=== PATIENT | male | born 1950 | race Caucasian/White ===

== ENCOUNTER 2017-10-26 05:46 | Emergency (ER) | payer MEDICARE, OTHER, SELFPAY ==
[2017-10-26 05:55] VITALS: BP 162/105; PULSE 44; RESP 24; O2SAT 98; BMI 43.0
--- NOTE | 2017-10-26 06:02 | DI.RAD.S_ITS ---
PROCEDURE: XR CHEST 1V INDICATIONS: 67 year-old male with shortness of breath. TECHNIQUE: One view of the chest was acquired. COMPARISON: None. FINDINGS: Surgical changes and devices: None. Lungs and pleura: Bilateral mild interstitial infiltrates. No pleural effusions or pneumothorax. Lungs are clear. Mediastinum: Mediastinal contours appear normal. Heart size is mildly increased. Bones and chest wall: No suspicious bony lesions. Overlying soft tissues appear unremarkable. IMPRESSION: Bilateral mild interstitial infiltrates may be secondary to mild CHF or bilateral interstitial pneumonia. Recommend clinical correlation. Dictated by: Indiana Byrd M.D. on 10/26/2017 at 8:32 Approved by: Indiana Byrd M.D. on 10/26/2017 at 8:34
[2017-10-26 06:10] VITALS: BP 162/105; PULSE 44; RESP 24; O2SAT 98; BMI 43.0
--- NOTE | 2017-10-26 06:13 | ED.CHESTPAIN ---
HPI - Chest Pain General Chief Complaint: Chest Pain Stated Complaint: HEART ATTACK Time Seen by Provider: 10/26/17 06:02 Source: patient Mode of arrival: ambulatory Limitations: no limitations History of Present Illness HPI narrative: Patient is a 67-year-old male who presents with chest pain and shortness of breath. Says it has been ongoing for a number of weeks. He has even had multiple syncopal episodes. Yesterday he was driving to the pharmacy to slat pickler his medication and stop the car 5 times because he felt like he was going to pass out he did not pass out. This morning he decided he would come to the emergency department to get checked out. He actually had a Holter monitor on for the last [address] tee if he has acid changer. He has a known cardiac valve problem which he was told has gotten worse. No known coronary artery disease. She does have other risk factors including hypertension hyperlipidemia diabetes. He says he only has chest pressure and dyspnea with exertion once he sits and rests he has no issues. He denies any orthopnea. No diaphoresis. No nausea. MD complaint: chest pain Related Data Home Medications Medication Instructions Recorded Confirmed aspirin [Aspir-81] 81 mg PO DAILY 10/26/17 10/26/17 felodipine 5 mg PO DAILY 10/26/17 10/26/17 glipizide 5 mg PO DAILY 10/26/17 10/26/17 insulin glargine [Lantus Solostar 30 units SUB-Q DAILY 10/26/17 10/26/17 U-100 Insulin] lisinopril 1 tab PO DAILY 10/26/17 10/26/17 loratadine 1 tab PO DAILY 10/26/17 10/26/17 metformin 1 tab PO DAILY 10/26/17 10/26/17 naproxen 1 tab PO DAILY 10/26/17 10/26/17 naproxen 12 tab PO BID 10/26/17 10/26/17 simvastatin 1 tab PO DAILY 10/26/17 10/26/17 tamsulosin 1 tab PO DAILY 10/26/17 10/26/17 Allergies Allergy/AdvReac Type Severity Reaction Status Date / Time mometasone furoate Allergy Unknown Verified 10/26/17 06:31 tamsulosin [From Flomax] Allergy Unknown Verified 10/26/17 06:30 hydrophilic ointment Allergy Verified 10/26/17 06:32 [From Aquaphilic/Triamcinolone] triamcinolone Allergy Verified 10/26/17 06:32 Iodine Allergy Unknown Uncoded 10/26/17 06:31 Review of Systems Review of Systems All systems reviewed & are unremarkable except as noted in HPI and below Constitutional Denies chills, Denies fever(s), Denies lethargy and Denies weakness Cardiovascular Reports chest pain, Reports syncope, Denies pedal edema, Reports dyspnea and Reports dyspnea on exertion Respiratory Reports dyspnea and Reports dyspnea on exertion Gastrointestinal Gastrointestinal: Denies abdominal pain, Denies change in bowel habits, Denies diarrhea, Denies nausea and Denies vomiting Musculoskeletal Denies back pain, Denies muscle weakness, Denies numbness and Denies tingling Integumentary/Breasts Denies pruritus, Denies erythema, Denies rash and Denies wounds Neurologic Reports syncope, Denies numbness, Denies tingling and Denies weakness PFSH Medical History BPH (benign prostatic hyperplasia) (Acute) Diabetes (Acute) Hyperlipidemia (Acute) Hypertension (Acute) Social History Smoking Status: Never smoker Exam Initial Vital Signs Initial Vital Signs: Vital Signs Pulse Rate 44 L 10/26/17 05:55 Respiratory Rate 24 10/26/17 05:55 Blood Pressure 162/105 H 10/26/17 05:55 Pulse Oximetry 98 10/26/17 05:55 Const General: acute distress and in distress Nutritional Appearance: overweight Orientation: alert, awake and oriented x3 Eyes General: appearance normal, both eyes and all related structures Neck Neck: normal visual inspection, full ROM and No JVD Chest Chest: normal inspection of the chest Resp Effort & Inspection: not able to speak in complete sentences, decreased respiratory effort and labored Auscultation: clear to auscultation bilaterally, no rales, no rhonchi, no wheezes and no rubs Tactile Fremitus: tactile fremitus absent Cardio Rate: bradycardic Rhythm: abnormal rhythm regularly irregular Heart Sounds: S1 normal and S2 normal GI Palpation: soft, No firm and No tender Skin Wounds: wounds noted (Chronic appearing right lower leg wound) Neuro General: alert, awake and oriented x3 Cranial Nerves: CN's II-XI intact bilaterally Course Orders Ordered: Discontinued Medications Sodium Chloride (Normal Saline 0.9%) 1,000 mls @ 150 mls/hr IV CONT AGNIESZKA Last Infusion: 10/26/17 09:18 Dose: 0 mls/hr Admin: 10/26/17 06:40 Dose: 150 mls/hr Consultations Consultation #1: Dr. Oniel Dale, acid changer at [facility] in billing him has been updated patient's symptoms test results. I expressed my concern and need for pacemaker. The some patient's other medical problems recommend admitting to hospitalist all. Happy to consult. Time: 06:36 Consultation #2: Dr. Barrett hospitalist at [facility] has been updated patient's symptoms test results and happily accepts patient for transfer. Time: 06:58 Vital Signs - 8 hr 10/26/17 05:55 10/26/17 06:10 Pulse Rate 44 L 44 L Respiratory Rate 24 24 Blood Pressure 162/105 H 162/105 H Pulse Oximetry 98 98 MDM - Chest Pain Lab Data Attestation: I reviewed the patient's lab results. Result diagrams: 10/26/17 05:50 10/26/17 05:50 Lab Results 10/26/17 10/26/17 10/26/17 Range/Units 05:50 05:50 05:50 WBC 8.1 (4.5-11.0) X10^3/uL RBC 4.53 (4.5-5.9) X10^6/uL Hgb 14.0 (13.5-17.5) g/dL Hct 41.8 (41-53) % MCV 92.4 (80-100) fL MCH 30.9 (26-34) PG MCHC 33.4 (30-36) % RDW 13.4 (11.6-14.8) % Plt Count 132 L (150-400) X10^3/uL Neut % (Auto) 55.0 (50-75) % Lymph % (Auto) 32.2 (25-40) % [place] % (Auto) 9.1 (3-14) % Eos % (Auto) 3.2 (2-4) % Baso % (Auto) 0.5 (0-2) % Neut # (Auto) 4500 (2140-5113) /uL PT 11.3 (10.1-12.7) SECONDS INR 1.0 (0.9-1.3) APTT 27 (26.4-36.2) SECONDS Sodium 138 (137-145) mmol/L Potassium 4.7 (3.4-5.1) mmol/L Chloride 100 (98-107) mmol/L Carbon Dioxide 28 (22-32) mmol/L BUN 24 H (9-20) mg/dL Creatinine 1.10 (0.66-1.25) mg/dL Estimated GFR > 60.0 (>60) mL/min BUN/Creatinine Ratio 21.8 (6-22) Glucose 209 H (80-110) mg/dL Calcium 8.9 (8.4-10.2) mg/dL Magnesium 1.7 (1.6-2.3) mg/dL Total Bilirubin 0.6 (0.2-1.3) mg/dL AST 42 (17-59) IU/L ALT 49 (21-72) IU/L Alkaline Phosphatase 55 (38-126) U/L Total Creatine Kinase 311 H (55-170) U/L CK-MB (CK-2) 6.23 H (<2.37) ng/mL CK-MB (CK-2) Rel Index 2.0 (1.5-5.0) % Troponin I 0.043 H (0.01-0.034) ng/mL B-Natriuretic Peptide 382.0 H (<100) Total Protein 7.2 (6.3-8.2) g/dL Albumin 4.3 (3.5-5.0) g/dL Globulin 2.9 (1.7-4.1) g/dL Albumin/Globulin Ratio 1.5 (1.0-2.8) Lipase 2439 H (23-300) U/L Imaging Data Chest x-ray: Attestation: I personally reviewed and interpreted this imaging study as follows: My impression: No acute cardiopulmonary process Radiologist's impression: ECG Data Interpretation: EKG 1. At 5:51 a.m. PVCs, run of V-tach,, nonconducted P wave Mobitz 2 versus third-degree EKG 2. At 6:14 a.m. or regular rhythm DC interval 0.4 fall a rate 37 MDM Narrative Medical decision making narrative: Patient has had multiple syncopal episodes he initially looked quite dyspneic and in distress. Initial EKG showed frequent PVCs nonconducted P waves questionable Mobitz type 2 versus third-degree heart block. He now appears to be an a regular sinus rhythm the consistent rate at 34. She remains awake alert and talking. Blood pressure remained stable. Lipase is noted to be elevated he denies any abdominal pain Discharge Plan Departure Patient Disposition: [facility] Clinical Impression: Arrhythmia, AV node, Bradycardia Discharge Date/Time: 10/26/17 09:10 Interventions: ED Discharge Assessment Last Done: 10/26/17 09:08 Prescriptions: No Action metformin 500 mg tablet 1 tab PO DAILY RF: 0 felodipine 5 mg Tablet Extended Release 24 Hr 5 mg PO DAILY RF: 0 aspirin [Aspir-81] 81 mg Tablet,Delayed Release (Dr/Ec) 81 mg PO DAILY RF: 0 tamsulosin 0.4 mg capsule 1 tab PO DAILY RF: 0 simvastatin 20 mg tablet 1 tab PO DAILY RF: 0 lisinopril 40 mg tablet 1 tab PO DAILY RF: 0 loratadine 10 mg tablet 1 tab PO DAILY RF: 0 glipizide 5 mg Tablet 5 mg PO DAILY RF: 0 naproxen 500 mg tablet 12 tab PO BID RF: 0 naproxen 500 mg tablet 1 tab PO DAILY RF: 0 insulin glargine [Lantus Solostar U-100 Insulin] 100 unit/mL (3 mL) insulin pen 30 units Sub-Q DAILY RF: 0
--- NOTE | 2017-10-26 06:20 | ED_ITS ---
HPI - Chest Pain General Chief Complaint: Chest Pain Stated Complaint: HEART ATTACK Time Seen by Provider: 10/26/17 06:02 Source: patient Mode of arrival: ambulatory Limitations: no limitations History of Present Illness HPI narrative: Patient is a 67-year-old male who presents with chest pain and shortness of breath. Says it has been ongoing for a number of weeks. He has even had multiple syncopal episodes. Yesterday he was driving to the pharmacy to pick out hand his medication and stop the car 5 times because he felt like he was going to pass out he did not pass out. This morning he decided he would come to the emergency department to get checked out. He actually had a Holter monitor on for the last [address] 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 He has a known cardiac valve problem which he was told has gotten worse. No known coronary artery disease. She does have other risk factors including hypertension hyperlipidemia diabetes. He says he only has chest pressure and dyspnea with exertion once he sits and rests he has no issues. He denies any orthopnea. No diaphoresis. No nausea. MD complaint: chest pain Related Data Home Medications Medication Instructions Recorded Confirmed aspirin [Aspir-81] 81 mg PO DAILY 10/26/17 10/26/17 felodipine 5 mg PO DAILY 10/26/17 10/26/17 glipizide 5 mg PO DAILY 10/26/17 10/26/17 insulin glargine [Lantus Solostar 30 units SUB-Q DAILY 10/26/17 10/26/17 U-100 Insulin] lisinopril 1 tab PO DAILY 10/26/17 10/26/17 loratadine 1 tab PO DAILY 10/26/17 10/26/17 metformin 1 tab PO DAILY 10/26/17 10/26/17 naproxen 1 tab PO DAILY 10/26/17 10/26/17 naproxen 12 tab PO BID 10/26/17 10/26/17 simvastatin 1 tab PO DAILY 10/26/17 10/26/17 tamsulosin 1 tab PO DAILY 10/26/17 10/26/17 Allergies Allergy/AdvReac Type Severity Reaction Status Date / Time mometasone furoate Allergy Unknown Verified 10/26/17 06:31 tamsulosin [From Flomax] Allergy Unknown Verified 10/26/17 06:30 hydrophilic ointment Allergy Verified 10/26/17 06:32 [From Aquaphilic/Triamcinolone] triamcinolone Allergy Verified 10/26/17 06:32 Iodine Allergy Unknown Uncoded 10/26/17 06:31 Review of Systems Review of Systems All systems reviewed & are unremarkable except as noted in HPI and below Constitutional Denies chills, Denies fever(s), Denies lethargy and Denies weakness Cardiovascular Reports chest pain, Reports syncope, Denies pedal edema, Reports dyspnea and Reports dyspnea on exertion Respiratory Reports dyspnea and Reports dyspnea on exertion Gastrointestinal Gastrointestinal: Denies abdominal pain, Denies change in bowel habits, Denies diarrhea, Denies nausea and Denies vomiting Musculoskeletal Denies back pain, Denies muscle weakness, Denies numbness and Denies tingling Integumentary/Breasts Denies pruritus, Denies erythema, Denies rash and Denies wounds Neurologic Reports syncope, Denies numbness, Denies tingling and Denies weakness PFSH Medical History BPH (benign prostatic hyperplasia) (Acute) Diabetes (Acute) Hyperlipidemia (Acute) Hypertension (Acute) Social History Smoking Status: Never smoker Exam Initial Vital Signs Initial Vital Signs: Vital Signs Pulse Rate 44 L 10/26/17 05:55 Respiratory Rate 24 10/26/17 05:55 Blood Pressure 162/105 H 10/26/17 05:55 Pulse Oximetry 98 10/26/17 05:55 Const General: acute distress and in distress Nutritional Appearance: overweight Orientation: alert, awake and oriented x3 Eyes General: appearance normal, both eyes and all related structures Neck Neck: normal visual inspection, full ROM and No JVD Chest Chest: normal inspection of the chest Resp Effort & Inspection: not able to speak in complete sentences, decreased respiratory effort and labored Auscultation: clear to auscultation bilaterally, no rales, no rhonchi, no wheezes and no rubs Tactile Fremitus: tactile fremitus absent Cardio Rate: bradycardic Rhythm: abnormal rhythm regularly irregular Heart Sounds: S1 normal and S2 normal GI Palpation: soft, No firm and No tender Skin Wounds: wounds noted (Chronic appearing right lower leg wound) Neuro General: alert, awake and oriented x3 Cranial Nerves: CN's II-XI intact bilaterally Course Orders Ordered: Discontinued Medications Sodium Chloride (Normal Saline 0.9%) 1,000 mls @ 150 mls/hr IV CONT AGNIESZKA Last Infusion: 10/26/17 09:18 Dose: 0 mls/hr Admin: 10/26/17 06:40 Dose: 150 mls/hr Consultations Consultation #1: Dr. Oniel Dale, shop blacksmith at [facility] in billing him has been updated patient's symptoms test results. I expressed my concern and need for pacemaker. The some patient's other medical problems recommend admitting to hospitalist all. Happy to consult. Time: 06:36 Consultation #2: Dr. Barrett hospitalist at [facility] has been updated patient's symptoms test results and happily accepts patient for transfer. Time: 06:58 Vital Signs - 8 hr 10/26/17 05:55 10/26/17 06:10 Pulse Rate 44 L 44 L Respiratory Rate 24 24 Blood Pressure 162/105 H 162/105 H Pulse Oximetry 98 98 MDM - Chest Pain Lab Data Attestation: I reviewed the patient's lab results. Result diagrams: 10/26/17 05:50 10/26/17 05:50 Lab Results 10/26/17 10/26/17 10/26/17 Range/Units 05:50 05:50 05:50 WBC 8.1 (4.5-11.0) X10^3/uL RBC 4.53 (4.5-5.9) X10^6/uL Hgb 14.0 (13.5-17.5) g/dL Hct 41.8 (41-53) % MCV 92.4 (80-100) fL MCH 30.9 (26-34) PG MCHC 33.4 (30-36) % RDW 13.4 (11.6-14.8) % Plt Count 132 L (150-400) X10^3/uL Neut % (Auto) 55.0 (50-75) % Lymph % (Auto) 32.2 (25-40) % Walsh % (Auto) 9.1 (3-14) % Eos % (Auto) 3.2 (2-4) % Baso % (Auto) 0.5 (0-2) % Neut # (Auto) 4500 (0580-9074) /uL PT 11.3 (10.1-12.7) SECONDS INR 1.0 (0.9-1.3) APTT 27 (26.4-36.2) SECONDS Sodium 138 (137-145) mmol/L Potassium 4.7 (3.4-5.1) mmol/L Chloride 100 (98-107) mmol/L Carbon Dioxide 28 (22-32) mmol/L BUN 24 H (9-20) mg/dL Creatinine 1.10 (0.66-1.25) mg/dL Estimated GFR > 60.0 (>60) mL/min BUN/Creatinine Ratio 21.8 (6-22) Glucose 209 H (80-110) mg/dL Calcium 8.9 (8.4-10.2) mg/dL Magnesium 1.7 (1.6-2.3) mg/dL Total Bilirubin 0.6 (0.2-1.3) mg/dL AST 42 (17-59) IU/L ALT 49 (21-72) IU/L Alkaline Phosphatase 55 (38-126) U/L Total Creatine Kinase 311 H (55-170) U/L CK-MB (CK-2) 6.23 H (<2.37) ng/mL CK-MB (CK-2) Rel Index 2.0 (1.5-5.0) % Troponin I 0.043 H (0.01-0.034) ng/mL B-Natriuretic Peptide 382.0 H (<100) Total Protein 7.2 (6.3-8.2) g/dL Albumin 4.3 (3.5-5.0) g/dL Globulin 2.9 (1.7-4.1) g/dL Albumin/Globulin Ratio 1.5 (1.0-2.8) Lipase 2439 H (23-300) U/L Imaging Data Chest x-ray: Attestation: I personally reviewed and interpreted this imaging study as follows: My impression: No acute cardiopulmonary process Radiologist's impression: ECG Data Interpretation: EKG 1. At 5:51 a.m. PVCs, run of V-tach,, nonconducted P wave Mobitz 2 versus third-degree EKG 2. At 6:14 a.m. or regular rhythm NV interval 0.4 fall a rate 37 MDM Narrative Medical decision making narrative: Patient has had multiple syncopal episodes he initially looked quite dyspneic and in distress. Initial EKG showed frequent PVCs nonconducted P waves questionable Mobitz type 2 versus third- degree heart block. He now appears to be an a regular sinus rhythm the consistent rate at 34. She remains awake alert and talking. Blood pressure remained stable. Lipase is noted to be elevated he denies any abdominal pain Discharge Plan Departure Patient Disposition: [facility] Clinical Impression: Arrhythmia, AV node, Bradycardia Discharge Date/Time: 10/26/17 09:10 Interventions: ED Discharge Assessment Last Done: 10/26/17 09:08 Prescriptions: No Action metformin 500 mg tablet 1 tab PO DAILY RF: 0 felodipine 5 mg Tablet Extended Release 24 Hr 5 mg PO DAILY RF: 0 aspirin [Aspir-81] 81 mg Tablet,Delayed Release (Dr/Ec) 81 mg PO DAILY RF: 0 tamsulosin 0.4 mg capsule 1 tab PO DAILY RF: 0 simvastatin 20 mg tablet 1 tab PO DAILY RF: 0 lisinopril 40 mg tablet 1 tab PO DAILY RF: 0 loratadine 10 mg tablet 1 tab PO DAILY RF: 0 glipizide 5 mg Tablet 5 mg PO DAILY RF: 0 naproxen 500 mg tablet 12 tab PO BID RF: 0 naproxen 500 mg tablet 1 tab PO DAILY RF: 0 insulin glargine [Lantus Solostar U-100 Insulin] 100 unit/mL (3 mL) insulin pen 30 units Sub-Q DAILY RF: 0
--- NOTE | 2017-10-26 06:21 | PC.NURSE ---
Pt states SOB and CP with exertion for past week with episodes of syncope however none today. PT was placed on holter monitor for past 2 week and mailed back today. States hx of htn, high cholesterol, diabetes, and was told 25 years ago he has a leaky slow heart valve . Pt able to speak in full sentences O2 96% on RA states CP is 3/10 at present with sinusbrady rhythm HR high 30's to low 40's.
[2017-10-26 06:22] LABS: Add Manual Diff / Slide Review NO; Basophils Percent Auto 0.5 % (0-2); Eosinophils Percent Auto 3.2 % (2-4); Hematocrit 41.8 % (41-53); Lymphocytes Percent Auto 32.2 % (25-40); Mean Corpuscular HGB Conc 33.4 % (30-36); Mean Corpuscular Hemoglobin 30.9 PG (26-34); Mean Corpuscular Volume 92.4 fL (80-100); Monocytes Percent Auto 9.1 % (3-14); Neutrophils Absolute Auto 4500 /uL (3000-5900); Platelet Count 132 X10^3/uL (150-400); Red Blood Cell Count 4.53 X10^6/uL (4.5-5.9); Red Cell Distribution Width 13.4 % (11.6-14.8); White Blood Cell Count 8.1 X10^3/uL (4.5-11.0)
[2017-10-26 06:25] LABS: Prothrombin Time 11.3 SECONDS (10.1-12.7)
[2017-10-26 06:27] LABS: PTT Partial Thromboplastin Tim 27 SECONDS (26.4-36.2)
[2017-10-26 06:29] LABS: Alanine Aminotransferase 49 IU/L (21-72); Albumin 4.3 g/dL (3.5-5.0); Albumin Globulin Ratio 1.5 (1.0-2.8); Alkaline Phosphatase 55 U/L (38-126); Aspartate Aminotransferase 42 IU/L (17-59); BUN Creatinine Ratio 21.8 (6-22); Bilirubin Total 0.6 mg/dL (0.2-1.3); Blood Urea Nitrogen 24 mg/dL (9-20); Calcium 8.9 mg/dL (8.4-10.2); Carbon Dioxide 28 mmol/L (22-32); Chloride 100 mmol/L (98-107); Creatine Kinase 311 U/L (55-170); Estimated Glomerular Filt Rate > 60.0 mL/min (>60); Globulin 2.9 g/dL (1.7-4.1); Glucose 209 mg/dL (80-110); Magnesium 1.7 mg/dL (1.6-2.3); Potassium 4.7 mmol/L (3.4-5.1); Sodium 138 mmol/L (137-145); Total Protein 7.2 g/dL (6.3-8.2)
[2017-10-26] MEDS: SODIUM CHLORIDE 0.9% 1,000 ML 150 ML IV (06:40)
[2017-10-26 06:42] LABS: Troponin I 0.043 ng/mL (0.01-0.034)
[2017-10-26 06:44] LABS: Creatine Kinase MB 6.23 ng/mL (<2.37); HEMOLYSIS 16 (0-50)
[2017-10-26 06:45] LABS: Lipase 2439 U/L (23-300)
[2017-10-26 07:02] VITALS: BP 166/58; PULSE 35; RESP 18; O2SAT 96
[2017-10-26 07:30] VITALS: BP 170/67; PULSE 35; RESP 18; O2SAT 97
[2017-10-26 08:00] VITALS: BP 168/52; PULSE 35; RESP 18; O2SAT 97
[2017-10-26 08:30] VITALS: BP 144/58; PULSE 35; RESP 16; O2SAT 96
== END 2017-10-26 09:10 | disposition short-term general hospital (02) ==
PROVIDERS: Emergency Provider Emergency Medicine; PCP Internal Medicine
DX: I49.8 Other specified cardiac arrhythmias (principal)
CPT/HCPCS: 36591; 71045; 80053; 82550; 82553; 83690; 83735; 83880; 84484; 85025; 85610; 85730; 93005; 93010; 96360; 96361; 99283; 99285

== ENCOUNTER 2018-01-21 10:45 | Emergency (ER) | payer MEDICARE, OTHER, SELFPAY ==
--- NOTE | 2018-01-21 10:49 | ED_ITS ---
HPI - Fall General Chief Complaint: Extremity Injury, Upper Stated Complaint: fell down yesterday, thinks he cracked his ribs Time Seen by Provider: 01/21/18 10:48 Source: patient Mode of arrival: ambulatory Limitations: no limitations History of Present Illness HPI Narrative: 67-year-old male here for evaluation of right shoulder and right side pain. Patient states yesterday he stepped off of a step yesterday and landed on his right shoulder. Did not hit his head. No loss of consciousness. He states he is on a baby aspirin but no other anticoagulation. No neck pain. States that the pain in his shoulder does not get worse when you touch it but feels deep down inside. No problems breathing. Related Data Home Medications Medication Instructions Recorded Confirmed aspirin [Aspir-81] 81 mg PO QPM 10/26/17 01/21/18 felodipine 5 mg PO DAILY 10/26/17 01/21/18 insulin glargine [Lantus Solostar 30 units SUB-Q BID 10/26/17 01/21/18 U-100 Insulin] lisinopril 1 tab PO DAILY 10/26/17 01/21/18 loratadine 1 tab PO DAILY 10/26/17 01/21/18 naproxen 1 tab PO BID 10/26/17 01/21/18 simvastatin 1 tab PO QPM 10/26/17 01/21/18 tamsulosin 1 tab PO DAILY 10/26/17 01/21/18 metformin 1 tab PO QAM 01/21/18 01/21/18 metformin 1,000 mg PO QPM 01/21/18 01/21/18 metoprolol succinate [Toprol XL] 1 tab PO DAILY 01/21/18 01/21/18 mometasone 1 applic OTIC (EAR) DIRECTED 01/21/18 01/21/18 vnyugpsj-[id number]-vit K-lycop 1 tab PO DAILY 01/21/18 01/21/18 [One-A-Day Men's 50 Plus] oxycodone 1 tab PO .ONCE 01/21/18 01/21/18 triamcinolone acetonide 1 applic TOPICAL BID PRN 01/21/18 01/21/18 Allergies Allergy/AdvReac Type Severity Reaction Status Date / Time shellfish derived Allergy Verified 01/21/18 11:00 Iodine Allergy Unknown Uncoded 10/26/17 06:31 Review of Systems Constitutional Denies fever(s) and Denies frequent falls Eyes Denies blurry vision Cardiovascular Denies dyspnea Comments: Right-sided chest wall pain Respiratory Denies dyspnea Gastrointestinal Gastrointestinal: Denies abdominal pain Musculoskeletal Reports myalgias, Reports arthralgias and Denies tingling Comments: Right shoulder Integumentary/Breasts Denies lesions and Denies rash Neurologic Denies frequent falls, Denies tingling and Denies paresthesias Hematologic/Lymphatic Denies easy bleeding and Denies easy bruising Exam Initial Vital Signs Initial Vital Signs: Vital Signs Temperature 98.1 F 01/21/18 10:56 Pulse Rate 66 01/21/18 10:56 Respiratory Rate 20 01/21/18 10:56 Blood Pressure 160/68 H 01/21/18 10:56 Pulse Oximetry 97 01/21/18 10:56 Const General: cooperative, healthy appearing, comfortable, well developed, well groomed and No acute distress Orientation: alert and oriented x3 HENMT Head: normal to inspection and normocephalic Chest Other: Patient with tenderness to palpation over the right anterior chest wall Resp Effort & Inspection: normal respiratory effort Auscultation: clear to auscultation bilaterally Cardio Rate: regular rate Rhythm: regular rhythm Pulses: radial pulses present Back/Spine/Pelvis Cervical Spine: No cervical spinal tenderness and No step off deformity Skin Lesions: no lesions Rashes: no rashes Neuro General: alert, awake and oriented x3 Cognition: normal cognition Speech: speech normal Extrem Other: Right hand right wrist right elbow unremarkable. Right Shoulder patient with pain with abduction and forward flexion of the shoulder. Difficult to get the shoulder above 90?. He is able to hold the shoulder at 90?. Unable to reproduce any tenderness over the AC joint or over the clavicle. Patient with pain with supination. Psych Appearance: grossly normal and well kempt [facility] Medical History BPH (benign prostatic hyperplasia) (Acute) Diabetes (Acute) Hyperlipidemia (Acute) Hypertension (Acute) Pacemaker (Acute) Surgical History History of permanent cardiac pacemaker placement (Acute) Social History Smoking Status: Never smoker Course Orders Ordered: ED Orders 01/21/18 11:05 XR ribs RT min 3V w CXR1V Stat XR shoulder RT min 2V Stat Vital Signs - 8 hr 01/21/18 10:56 Temperature 98.1 F Pulse Rate 66 Respiratory Rate 20 Blood Pressure 160/68 H Pulse Oximetry 97 MDM - Fall Imaging Data Shoulder x-ray: Radiologist's impression: PROCEDURE: XR RIBS RT MIN 3V W CXR 1V INDICATIONS: Right chest wall pain after fall TECHNIQUE: 2 views of the right ribs were acquired, along with a single view chest. COMPARISON: [facility], CR, XR SHOULDER RT MIN 2V, 01/21/2018, 10:48. [facility], CR, XR CHEST 1V, 10/26/2017, 6:06. FINDINGS: Surgical changes and devices: Pacemaker in normal position.. Bones and chest wall: No fractures or dislocations. No suspicious bony lesions. Overlying soft tissues appear unremarkable. Lungs and pleura: No pleural effusions or pneumothorax. Lungs appear clear. Mediastinum: Mediastinal contours appear normal. Heart size is normal. IMPRESSION: No trauma found.. Dictated by: Tony Bhakta M.D. on 01/21/2018 at 11:51 Approved by: Tony Bhakta M.D. on 01/21/2018 at 11:52 Rib x-ray: Radiologist's impression: PROCEDURE: XR SHOULDER RT MIN 2V INDICATIONS: Fall with pain and limited range of motion TECHNIQUE: 3 views of the shoulder were acquired. COMPARISON: [facility], CR, XR SHOULDER MIN 2VW RT, 03/29/2016, 13:48. FINDINGS: Bones: No fractures or dislocations there is moderately severe a.c. joint osteoarthritis and a spur extending inferiorly from the acromion towards the supraspinatus rotator course. No suspicious bony lesions. Visualized ribs appear intact. Soft tissues: No suspicious soft tissue calcifications. IMPRESSION: No acute trauma found. Arthritis and spurring as noted at the shoulder which would predispose to chronic pain or possible acute injury to the supraspinatus rotator cuff. Dictated by: Tony Bhakta M.D. on 01/21/2018 at 11:52 Approved by: Tony Bhakta M.D. on 01/21/2018 at 11:53 [facility] Narrative Medical decision making narrative: No fractures noted on the x-rays. Patient without any respiratory distress. He is neurovascularly intact. States that he has injured his rotator cuff on the right in the past. He does have an established care with an orthopedic surgeon. Will hold on further workup for now. We did discuss return precautions. He expressed understanding and agreement with plan. Discharge Plan Departure Patient Disposition: Home Clinical Impression: Right shoulder injury, Right-sided chest wall pain Instructions: How To Perform RICE (Rest, Ice, Compress, Elevate), DI for Shoulder Pain Activity Restrictions/Additional Instructions: Continue to take your anti inflammatory as directed. You can take the pain medication that you have at home if needed for any discomfort. I would recommend you contact your orthopedic surgeon to discuss further evaluation and treatment. Prescriptions: No Action felodipine 5 mg Tablet Extended Release 24 Hr 5 mg PO DAILY RF: 0 aspirin [Aspir-81] 81 mg Tablet,Delayed Release (Dr/Ec) 81 mg PO QPM RF: 0 tamsulosin 0.4 mg capsule 1 tab PO DAILY RF: 0 simvastatin 20 mg tablet 1 tab PO QPM RF: 0 lisinopril 40 mg tablet 1 tab PO DAILY RF: 0 loratadine 10 mg tablet 1 tab PO DAILY RF: 0 naproxen 500 mg tablet 1 tab PO BID RF: 0 insulin glargine [Lantus Solostar U-100 Insulin] 100 unit/mL (3 mL) insulin pen 30 units Sub-Q BID RF: 0 oxycodone 1 tab PO .ONCE RF: 0 metformin 500 mg tablet 1 tab PO QAM RF: 0 triamcinolone acetonide 0.025 % cream 1 applic Topical BID PRN (Reason: unknown) RF: 0 metoprolol succinate [Toprol XL] 25 mg tablet extended release 24 hr 1 tab PO DAILY RF: 0 metformin 500 mg tablet 1,000 mg PO QPM RF: 0 jpifjmck-cke-omfkw-vit K-lycop [One-A-Day Men's 50 Plus] 400-20-370 mcg Tablet 1 tab PO DAILY RF: 0 mometasone 1 applic otic (ear) DIRECTED RF: 0
[2018-01-21 10:56] VITALS: BP 160/68; PULSE 66; RESP 20; TEMP 36.7; O2SAT 97; BMI 44.1
--- NOTE | 2018-01-21 11:05 | DI.RAD.S_ITS ---
PROCEDURE: XR SHOULDER RT MIN 2V INDICATIONS: Fall with pain and limited range of motion TECHNIQUE: 3 views of the shoulder were acquired. COMPARISON: [facility], CR, XR SHOULDER MIN 2VW RT, 03/29/2016, 13:48. FINDINGS: Bones: No fractures or dislocations there is moderately severe a.c. joint osteoarthritis and a spur extending inferiorly from the acromion towards the supraspinatus rotator course. No suspicious bony lesions. Visualized ribs appear intact. Soft tissues: No suspicious soft tissue calcifications. IMPRESSION: No acute trauma found. Arthritis and spurring as noted at the shoulder which would predispose to chronic pain or possible acute injury to the supraspinatus rotator cuff. Dictated by: Tony Bhakta M.D. on 01/21/2018 at 11:52 Approved by: Tony Bhakta M.D. on 01/21/2018 at 11:53
--- NOTE | 2018-01-21 11:05 | DI.RAD.S_ITS ---
PROCEDURE: XR RIBS RT MIN 3V W CXR 1V INDICATIONS: Right chest wall pain after fall TECHNIQUE: 2 views of the right ribs were acquired, along with a single view chest. COMPARISON: [facility], CR, XR SHOULDER RT MIN 2V, 01/21/2018, 10:48. [facility], CR, XR CHEST 1V, 10/26/2017, 6:06. FINDINGS: Surgical changes and devices: Pacemaker in normal position.. Bones and chest wall: No fractures or dislocations. No suspicious bony lesions. Overlying soft tissues appear unremarkable. Lungs and pleura: No pleural effusions or pneumothorax. Lungs appear clear. Mediastinum: Mediastinal contours appear normal. Heart size is normal. IMPRESSION: No trauma found.. Dictated by: Tony Bhakta M.D. on 01/21/2018 at 11:51 Approved by: Tony Bhakta M.D. on 01/21/2018 at 11:52
[2018-01-21 12:25] VITALS: BP 159/76; PULSE 61; RESP 22; O2SAT 94
== END 2018-01-21 12:25 | disposition home or self-care (01) ==
PROVIDERS: Emergency Provider Emergency Medicine; PCP Internal Medicine
DX: S49.91XA Unspecified injury of right shoulder and upper arm, initial encounter (principal); W10.8XXA Fall (on) (from) other stairs and steps, initial encounter
CPT/HCPCS: 71101; 73030; 99282; 99283

== ENCOUNTER → 2018-05-13 09:31 | Outpatient (CLI) | payer MEDICARE, OTHER, SELFPAY ==
--- NOTE | 2018-05-13 09:34 | DI.RAD.S_ITS ---
PROCEDURE: FL SHOULDER INJECTION MR/CT RT INDICATIONS: ROTATOR CUFF TEAR TECHNIQUE: The indications, alternatives, benefits, risks, and complications of the procedure were explained to the patient. Written informed consent was obtained and placed in the chart. The shoulder was examined fluoroscopically and a site for needle placement chosen for entry into the glenohumeral joint from an anterior approach. The skin was prepped and draped in a sterile fashion, and 1% lidocaine infiltrated from skin down to joint capsule. A spinal needle was inserted into the glenohumeral joint, and a small amount of iodinated contrast media injected to confirm intra-articular placement of the needle tip. This was followed by approximately 12 mL of iodinated contrast. The needle was removed and a dressing was applied. The patient was given postprocedural instructions and sent to the CT suite for imaging. FINDINGS: A single fluoroscopic spot image demonstrates intra-articular location of injected iodinated contrast. IMPRESSION: Successful fluoroscopically guided administration of iodinated contrast solution into the shoulder joint for CT arthrogram. Dictated by: Samantha Robles M.D. on 05/13/2018 at 12:27 Approved by: Samantha Robles M.D. on 05/13/2018 at 12:27
--- NOTE | 2018-05-13 10:31 | DI.CT.S_ITS ---
PROCEDURE: CT UE RT W CON INDICATIONS: ROTATOR CUFF TEAR TECHNIQUE: After the intra-articular administration of 12 mL of dilute non-ionic contrast, 1-1.5 mm thick sections acquired from the acromioclavicular joint to the inferior scapula, with coronal and sagittal reformatting. COMPARISON: None. FINDINGS: Image quality: Excellent. Bones: Moderate acromioclavicular joint and glenohumeral joint osteoarthritis is seen. No acute fracture or dislocation. Superior migration of humeral head in relation to glenoid is noted. Soft tissues: There is full-thickness rupture of the distal supraspinatus and infraspinatus with medial retraction of torn tendon fibers to the level of acromioclavicular joint. Tendinosis and intrasubstance partial-thickness tear involving distal subscapularis is also likely present. There is suggestion of contrast extension into superior anterior labrum concerning for superior anterior labral tear at approximately 12 to 2:00 position. IMPRESSION: 1. Full-thickness rupture of distal supraspinatus and infraspinatus with medial retraction of torn tendon fibers to the level of acromioclavicular joint. 2. Moderate acromioclavicular joint and glenohumeral joint osteoarthritis. No fracture or dislocation. 3. Findings suggestive of superior anterior labral tear at 12 to 2:00 position. Dictated by: Ronald Haddad M.D. on 05/13/2018 at 12:06 Approved by: Ronald Haddad M.D. on 05/13/2018 at 12:20
== END ==
PROVIDERS: PCP Internal Medicine; Visit Provider Orthopaedic Surgery
DX: M75.121 Complete rotator cuff tear or rupture of right shoulder, not specified as traumatic (principal); M19.011 Primary osteoarthritis, right shoulder
CPT/HCPCS: 23350; 73201; 77002

== ENCOUNTER → 2018-07-16 12:46 | Outpatient (CLI) | payer MEDICARE, OTHER, SELFPAY ==
--- NOTE | 2018-07-17 12:07 | DIET.PN ---
Addendum entered by Malika Carrero 07/17/18 12:08: Visit from Jul 16, 2018. Original Note: DIABETES Nutrition Initial Assessment:? ASSESS:?? 67 yom referred for type 2 diabetes. Pt with long standing hx of diabetes, 15 yrs, with long-term use of insulin. Reports following a Keto diet since Mar 2017, but discontinued this over the holidays which affected his most recent HbgA1c. Currently monitoring FBG only. Pt presents resistance to change but states he needs to have controlled BG in order to have knee surgery. States physical activity is challenging related to several injuries and surgeries including fused vertebra, broken ribs, shoulder injury (waiting surgery) and knee issues (waiting surgery). LABS: Per pt report:? A1c: 7.3 ; FB-140 (per pt report) ? MEDS:?? lantus 20 u pm (increasing 2 u q3d up to 26 u); glipizide 5mg bid; metformin 1000mg bid ? DIET: Per 24-hour recall:? B: 3 eggs w/ sausage or burks, coffee with full fat cream L (snack): radishes/onions; salami w/ cheese D: Protein w/ non starchy veg ? Weight: 340lb Height: 73in BMI: 44.8 ? Exercise:? hikes on [place]. States he cannot do anything else without extreme discomfort. NUTRITION DX 1. Altered Nutrition related labs related to impaired glucose metabolism, lack of previous exposure to accurate nutrition information as evidenced by pt report, dx of diabetes, previous diet high in refined carbohydrates.? INTERVENTION(s): 1. Discussed pathophysiology of diabetes. Reviewed A1c and its correlation to blood glucose numbers. Discussed recommended BG ranges. 2. Discussed importance of self-monitoring, how often, and when to check. 3. Reviewed hyper/hypoglycemia and treatment. 4. Reviewed safe disposal of equipment (strip/lancets/insulin needles). 5. Discussed impact of nutrition/diet on blood sugar control.? Discussed fed versus non-fed state.?? 6. Discussed the effect of carbohydrates/protein/fat on blood sugar control.? Stressed importance of consistent carbohydrate intake at each meal and provided instructions for recommended servings/portions of carbohydrates/protein per meal. Provided pt with educational material. 7. Reviewed carbohydrate counting and measuring carbohydrate content via serving sizes and reading nutrition labels.? Provided handouts.?? 8. Discussed the difference between simple versus complex carbohydrates and the effect of fiber on blood sugar control.? Discussed various methods to increase fiber content in diet. 9. Stressed importance of meal timing and not going >4-5 hours between meals. Encouraged adding protein to each meal to support glucose control. Provided list of protein foods. Discussed best protein options for heart health and to alleviate hunger. Patient agreeable. 10. Discussed healthy weight loss through diet and exercise to increase lean muscle mass.? Pt agreeable to walking daily. MONITOR/EVALUATE: Anticipate good compliance.? Nutrition follow up schedule for 1 mo to review BG, weight, food record and discuss protein/fat.
== END ==
PROVIDERS: PCP Nurse Practitioner Family; Visit Provider Family Medicine
DX: E11.9 Type 2 diabetes mellitus without complications (principal)
CPT/HCPCS: 97802

== ENCOUNTER → 2018-07-26 10:32 | Outpatient (CLI) | payer MEDICARE, OTHER, SELFPAY ==
--- NOTE | 2018-07-26 10:37 | DIET.PN ---
INDIVIDUAL NUTRITION FOLLOW UP ? ASSESS:? 50yom?seen for diabetes nutrition F/U. Pt has been monitoring BG 2x/day as recommended at previous visit and brought meter for review. FBG continue to be elevated, but 2 hr evening PP have primarily been within range. Pt did admit to having margaritas one evening in celebration of his birthday which caused an elevated BG over 200. All others have been <150. He states he has cut out sweets and is incorporating more vegetables and nuts since last visit. We are concerned with elevated FBG. Pt admits to eating a bag of popcorn in the evenings. He has also reached his recommended dose of 26u of lantus in the evening. ? LABS: A1c: 7.3 FB-200 (avg 165) 2 hr PP:??100-200 7d av ? Weight: 340 ? DIET: following keto diet ? EXERCISE:??minimal ? NUTRITION Dx? 1. Altered nutrition related labs r/t type 2 DM, inconsistent carbohydrate intake as evidenced by pt report, dietary recall.?? ? INTERVENTION? 1. Reviewed blood sugar log and implications/reasons for elevated/decreased blood sugar.? 2. Reviewed carbohydrate counting and importance of consistent carbohydrate intake.? 3. Reviewed meal intake and importance of balanced meals (paulette to prevent overeating).??? 4. Discussed possible reasons for elevated FBG including evening snack, medication regimen. Reviewed evening snack options to maintain glucose control over night. Goals: 1. Pt will cont to monitor FBG and 2 hr evening PP for 1 mo to review at F/U prior to new labs. 2. Pt will incorporate protein option and reduce portion of popcorn to 3 cups at evening snack for better glucose control. Notes: Could it benefit to split lantus dose to 13u a.m. / 13u p.m. MONITOR/EVALUATE: Pt receptive to information provided.? F/U scheduled for 1 mo to review BG, weight, and eating patterns.
== END ==
PROVIDERS: PCP Nurse Practitioner Family; Visit Provider Nurse Practitioner Family
DX: E11.9 Type 2 diabetes mellitus without complications (principal)
CPT/HCPCS: 97803

== ENCOUNTER → 2018-08-12 13:05 | Outpatient (CLI) | payer MEDICARE, OTHER, SELFPAY | PROVIDERS: PCP Family Medicine; Visit Provider Family Medicine | DX: I87.2 Venous insufficiency (chronic) (peripheral) (principal); L97.811 Non-pressure chronic ulcer of other part of right lower leg limited to breakdown of skin; I10 Essential (primary) hypertension; N40.0 Benign prostatic hyperplasia without lower urinary tract symptoms | CPT/HCPCS: 11042; 93922; 99204; 99213 ==

== ENCOUNTER → 2018-08-26 12:07 | Outpatient (CLI) | payer MEDICARE, OTHER, SELFPAY ==
[2018-08-26 13:14] LABS: Hemoglobin A1C% w Est Avg Glu 6.5 % (4.0-6.0)
== END ==
PROVIDERS: Orthopaedic Surgery; PCP Family Medicine; Visit Provider Family Medicine
DX: R73.9 Hyperglycemia, unspecified (principal)
CPT/HCPCS: 36415; 83036

== ENCOUNTER → 2018-08-26 15:05 | Outpatient (CLI) | payer MEDICARE, OTHER, SELFPAY | PROVIDERS: PCP Family Medicine; Visit Provider Podiatrist Primary Podiatric Medicine | DX: I87.2 Venous insufficiency (chronic) (peripheral) (principal); L97.812 Non-pressure chronic ulcer of other part of right lower leg with fat layer exposed | CPT/HCPCS: 11042 ==

== ENCOUNTER → 2018-08-28 09:18 | Outpatient (CLI) | payer MEDICARE, OTHER, SELFPAY ==
--- NOTE | 2018-08-28 12:09 | DIET.PN ---
INDIVIDUAL NUTRITION ASSESSMENT? ? ASSESS:?Pt seen for 2nd diabetes nutrition F/U. He continues to monitor BG 2x/day and brought meter for review. He is trying to stick with a low carb diet, consuming primarily meats and vegetables. He is concerned with the sauces used for particular stir-hawkins dishes being high in sugar. Pt has been having difficulty with feet and shoulder pain. Recently visited wound care where he had a wound cleaned out. Reports noticeable reduced swelling in lower extremities. Pt was also happy to report weight loss since prior visit and that he is feeling better. New labs were done 08/26/18 which we reviewed. Discussed possibility of shoulder surgery with current A1c reduction. ? LABS: A1c: 6.5 (08/26/18) FB-195 2 hr PP:?95-180 (>200mg/dl x4)? 7 day Av ? Weight: 336 (down from 340) ? DIET: meat/veggie/seeds. Occasional whole grain breads, popcorn. ? EXERCISE:??hiking. ? NUTRITION Dx? 1. Altered nutrition related labs r/t type 2 DM, inconsistent carbohydrate intake as evidenced by pt report, dietary recall.?? ? INTERVENTION? 1. Reviewed blood sugar log and implications/reasons for elevated/decreased blood sugar.? Pt with good understanding.? 2. Reviewed medication management. Pt goal to decrease insulin with continued a1c and weight reduction. Goals: Pt hopes to be eligible for shoulder surgery with new A1c value. MONITOR/EVALUATE: Pt receptive to information provided. F/u in 1 mo to monitor weight and BG.
== END ==
PROVIDERS: PCP Family Medicine; Visit Provider Nurse Practitioner Family
DX: E11.9 Type 2 diabetes mellitus without complications (principal)
CPT/HCPCS: 97803

== ENCOUNTER → 2018-08-29 11:14 | Outpatient (CLI) | payer MEDICARE, OTHER, SELFPAY | PROVIDERS: PCP Family Medicine; Visit Provider Family Medicine | DX: I87.2 Venous insufficiency (chronic) (peripheral) (principal); L97.812 Non-pressure chronic ulcer of other part of right lower leg with fat layer exposed | CPT/HCPCS: 99213 ==

== ENCOUNTER → 2018-09-02 12:57 | Outpatient (CLI) | payer MEDICARE, OTHER, SELFPAY | PROVIDERS: PCP Family Medicine; Visit Provider Family Medicine | DX: I87.2 Venous insufficiency (chronic) (peripheral) (principal); L97.812 Non-pressure chronic ulcer of other part of right lower leg with fat layer exposed | CPT/HCPCS: 87070; 87075; 87077; 87147; 87186; 87205; 97597 ==

== ENCOUNTER → 2018-09-09 09:10 | Outpatient (CLI) | payer MEDICARE, OTHER, SELFPAY | PROVIDERS: PCP Family Medicine; Visit Provider Podiatrist Primary Podiatric Medicine | DX: I87.2 Venous insufficiency (chronic) (peripheral) (principal); L97.811 Non-pressure chronic ulcer of other part of right lower leg limited to breakdown of skin | CPT/HCPCS: 11042 ==

== ENCOUNTER → 2018-09-30 09:37 | Outpatient (CLI) | payer MEDICARE, OTHER, SELFPAY | PROVIDERS: PCP Family Medicine; Visit Provider Podiatrist Primary Podiatric Medicine | DX: I87.2 Venous insufficiency (chronic) (peripheral) (principal); L97.811 Non-pressure chronic ulcer of other part of right lower leg limited to breakdown of skin; E11.9 Type 2 diabetes mellitus without complications | CPT/HCPCS: 97597 ==

== ENCOUNTER → 2018-10-03 12:00 | Outpatient (CLI) | payer MEDICARE, OTHER, SELFPAY ==
--- NOTE | 2018-10-03 14:19 | DIET.PN ---
Dietary Progress Note Assessment: Pt seen for 3rd diabetes nutrition follow up. Reports he just returned from camping and did not follow his normal eating patterns. Fasting blood glucose continues to be elevated but evening are generally withing normal range. Continues to notice significantly reduced swelling and pain in lower extremities. However his shoulder and hip remain constant sources of discomfort. Pt states he is supposed to have shoulder surgery soon, but has not heard a specific date. Steady decrease in weight. HT: 73 WT: 331 (down from 336) BMI: 43.7 Labs: A1c: 6.5 Nutrition Diagnosis: Altered nutrition related labs r/t type 2 DM, inconsistent carbohydrate intake aeb pt report, dietary recall. Interventions: 1. Reviewed food record. Recommended pt continue to eat several meals throughout the day including evening snack of carb+ pro to maintain glucose control over night. 2. Discussed importance of regular physical activity in weight loss and increased insulin sensitivity. Goals: Remains hopeful to be able to have shoulder surgery soon with continued glucose control. Monitoring/Evaluations: Pt receptive to information provided. Will f/u with plan for surgery.
[2019-01-14 14:11] VITALS: BMI 46.0
== END ==
PROVIDERS: Family Provider Family Medicine; PCP Family Medicine; Referring Provider Family Medicine; Visit Provider Family Medicine
DX: E11.9 Type 2 diabetes mellitus without complications (principal); E66.9 Obesity, unspecified; Z71.3 Dietary counseling and surveillance; Z68.41 Body mass index [BMI] 40.0-44.9, adult
CPT/HCPCS: 97803

== ENCOUNTER → 2018-10-07 09:29 | Outpatient (CLI) | payer MEDICARE, OTHER, SELFPAY | PROVIDERS: PCP Family Medicine; Visit Provider Podiatrist Primary Podiatric Medicine | DX: I87.2 Venous insufficiency (chronic) (peripheral) (principal); L97.811 Non-pressure chronic ulcer of other part of right lower leg limited to breakdown of skin; D36.9 Benign neoplasm, unspecified site | CPT/HCPCS: 11042 ==

== ENCOUNTER → 2018-10-14 08:40 | Outpatient (CLI) | payer MEDICARE, OTHER, SELFPAY | PROVIDERS: PCP Family Medicine; Visit Provider Podiatrist Primary Podiatric Medicine | DX: I87.2 Venous insufficiency (chronic) (peripheral) (principal); L97.311 Non-pressure chronic ulcer of right ankle limited to breakdown of skin; R60.0 Localized edema; S81.801A Unspecified open wound, right lower leg, initial encounter | CPT/HCPCS: 17250 ==

== ENCOUNTER → 2018-10-21 09:50 | Outpatient (CLI) | payer MEDICARE, OTHER, SELFPAY | PROVIDERS: PCP Family Medicine; Visit Provider Family Medicine | DX: L97.311 Non-pressure chronic ulcer of right ankle limited to breakdown of skin (principal); I87.2 Venous insufficiency (chronic) (peripheral); D36.9 Benign neoplasm, unspecified site | CPT/HCPCS: 99214 ==

== ENCOUNTER → 2018-10-28 08:58 | Outpatient (CLI) | payer MEDICARE, OTHER, SELFPAY | PROVIDERS: PCP Family Medicine; Visit Provider Podiatrist Primary Podiatric Medicine | DX: I87.2 Venous insufficiency (chronic) (peripheral) (principal); I89.0 Lymphedema, not elsewhere classified; D36.9 Benign neoplasm, unspecified site | CPT/HCPCS: 99212; 99213 ==

== ENCOUNTER → 2018-10-28 09:16 | Outpatient (CLI) | payer MEDICARE, OTHER, SELFPAY ==
[2018-10-28 09:26] LABS: Bacteria Urine None Seen; RBC Urine None Seen (0-5/HPF); WBC Urine None Seen (0-5/HPF)
[2018-10-28 10:32] LABS: Hematocrit 40.8 % (41-53); Hemoglobin 13.9 g/dL (13.5-17.5); Mean Corpuscular Hemoglobin 30.8 PG (26-34); Mean Corpuscular Volume 90.6 fL (80-100); Platelet Count 125 X10^3/uL (150-400); Red Cell Distribution Width 13.1 % (11.6-14.8); White Blood Cell Count 4.5 X10^3/uL (4.5-11.0)
[2018-10-28 10:43] LABS: Hemoglobin A1C% w Est Avg Glu 5.9 % (4.0-6.0)
[2018-10-28 11:12] LABS: Alanine Aminotransferase 45 IU/L (21-72); Albumin 4.5 g/dL (3.5-5.0); Albumin Globulin Ratio 1.4 (1.0-2.8); Alkaline Phosphatase 62 U/L (38-126); Aspartate Aminotransferase 49 IU/L (17-59); Bilirubin Total 0.6 mg/dL (0.2-1.3); Blood Urea Nitrogen 18 mg/dL (9-20); Calcium 9.1 mg/dL (8.4-10.2); Carbon Dioxide 29 mmol/L (22-32); Chloride 100 mmol/L (98-107); Cholesterol 128 mg/dL (140-199); Estimated Glomerular Filt Rate > 60.0 mL/min (>60); Globulin 3.2 g/dL (1.7-4.1); Glucose 154 mg/dL (80-110); HDL Cholesterol 36 mg/dL (40-60); HEMOLYSIS < 15 (0-50); LDL Cholesterol Calculated 50 mg/dL (<100); Potassium 4.9 mmol/L (3.4-5.1); Sodium 139 mmol/L (137-145); Total Protein 7.7 g/dL (6.3-8.2); Triglycerides 211 mg/dL (35-150)
[2018-10-28 11:15] LABS: Transferrin 322 mg/dL (206-381)
[2018-10-28 11:23] LABS: Appearance Urine UA CLEAR; Bilirubin Urine UA NEGATIVE (NEGATIVE); Color Urine UA YELLOW; Glucose Urine UA NEGATIVE (Negative); Ketones Urine UA NEGATIVE (NEGATIVE); Leukocyte Esterase Urine UA NEGATIVE (NEGATIVE); Nitrite Urine UA NEGATIVE (Negative); Occult Blood Urine UA NEGATIVE (Negative); Protein Urine UA TRACE (Negative); Specific Gravity Urine UA 1.015 (1.000-1.035); Urobilinogen Urine UA 0.2 E.U./dL (0.2)
[2018-10-28 11:38] LABS: Prostate Specific Antigen 1.02 ng/mL (0.10-4.00)
[2018-10-28 11:46] LABS: Culture Indicated Urine Cult Not Indicated; Urine Comments Microscopic Normal
[2018-10-28 12:22] LABS: Creatinine Urine Random 70.2 mg/dL
[2018-10-28 13:10] LABS: Microalbumi Creatinin Ratio Ur 326.2 ug/mg CR (<30); Microalbumin Urine Random 22.9 mg/dL (0-1.6)
== END ==
PROVIDERS: Nurse Practitioner Family; PCP Family Medicine; Visit Provider Family Medicine
DX: E11.8 Type 2 diabetes mellitus with unspecified complications (principal); I10 Essential (primary) hypertension; Z79.4 Long term (current) use of insulin; N39.0 Urinary tract infection, site not specified; R73.9 Hyperglycemia, unspecified; Z01.818 Encounter for other preprocedural examination
CPT/HCPCS: 36415; 80053; 80061; 81001; 82043; 82570; 83036; 84153; 84466; 85027

== ENCOUNTER → 2018-11-04 10:34 | Outpatient (CLI) | payer MEDICARE, OTHER, SELFPAY ==
--- NOTE | 2018-11-04 10:36 | DI.RAD.S_ITS ---
PROCEDURE: XR CHEST 2V INDICATIONS: cough and wheeze. TECHNIQUE: 2 views of the chest were acquired. COMPARISON: [facility], CR, XR RIBS RT MIN 3V W CXR 1V, 01/21/2018, 10:48. [facility], CR, XR CHEST 1V, 10/26/2017, 6:06. FINDINGS: Surgical changes and devices: Dual chambered cardiac pacemaking device and leads are in normal position. Lungs and pleura: Lungs are clear except for a generalized interstitial prominence pattern that may reflect presence of pulmonary edema. No pleural effusions or pneumothorax. Mediastinum: Mediastinal contours are normal. Heart size is mildly enlarged. Bones and chest wall: No suspicious bony abnormalities. Soft tissues appear unremarkable. IMPRESSION: Pacemaking device and leads appear normal. Mild cardiomegaly with pulmonary edema pattern versus chronic interstitial prominence. Focal pneumonia is not found. Dictated by: Tony Bhakta M.D. on 11/04/2018 at 11:40 Approved by: Tony Bhakta M.D. on 11/04/2018 at 11:42
== END ==
PROVIDERS: PCP Family Medicine; Visit Provider Family Medicine
DX: R05 Cough (principal); R06.2 Wheezing; E11.9 Type 2 diabetes mellitus without complications; Z95.0 Presence of cardiac pacemaker
CPT/HCPCS: 71046; 97803

== ENCOUNTER → 2018-11-04 10:46 | Outpatient (CLI) | payer MEDICARE, OTHER, SELFPAY ==
--- NOTE | 2018-11-04 12:12 | DIET.PN ---
Dietary Progress Note Assessment: Pt seen for 4th diabetes nutrition follow up. He continues to self-monitor blood glucose. Presents fairly frustrated with current surgery situation. He has been with dietary, cardiology, and orthopedics to have a shoulder repair for several months. States he has not been able to have anything scheduled due to poor communication. He has been seeing the wound clinic weekly for lower extremities which seem to be resolving. Recently had new labs done which show continues progress in diabetes care. He had hoped to have his surgery prior to his daughter going in for hip surgery on the Nov. He is afraid he will have to repeat the entire pre-operative process as it expires in 30 days per pt report. HT: 73 WT: 335 BMI: 44.2 Meds: 26 U pm lantus; glipizide 5mg bid; meformin 1000mg bid Labs: A1c: 5.9 (down fro 6.5) eA TC: 128 Tr HDL: 36 LDL: 50 Nutrition Diagnosis: Altered nutrition related lab values r/t type 2 DM, inconsistent carb intake aeb pt report, dietary recall. Interventions: 1. Reviewed glucometer and reasons for elevated readings. A1c continues to go down. Pt continues to follow reduced carb meal plan. 2. Discussed importance of regular physical activity. Pt states he plans to try out the new local fitness facility. Now that he is finished with is regular wound care visits he is going to start attending the gym on [place] and [place] and continue hiking on Wednesdays. Monitoring/Evaluations: No follow up scheduled. Pt will contact with surgery information.
== END ==
PROVIDERS: PCP Family Medicine; Visit Provider Nurse Practitioner Family
DX: E11.9 Type 2 diabetes mellitus without complications (principal)
CPT/HCPCS: 97803

== ENCOUNTER 2019-01-14 06:07 | Inpatient (IN) | payer MEDICARE, OTHER, SELFPAY ==
[2019-01-10 12:40] VITALS: BMI 46.0
[2019-01-14] VITALS (21 sets, daily range): BP systolic 106–192; BP diastolic 48–90; PULSE 60–67; RESP 11–20; TEMP 35.9–37; O2SAT 87–97; BMI 46.0
--- NOTE | 2019-01-14 06:00 | DI.RAD.S_ITS ---
PROCEDURE: XR SHOULDER RT 1V INDICATIONS: post op films TECHNIQUE: Single view of the shoulder were acquired. COMPARISON: [facility], , XR SHOULDER RT MIN 2V, 01/21/2018, 10:48. FINDINGS: There is a right shoulder prosthesis with expected alignment on this single projection. Overlying postsurgical changes are demonstrated in the soft tissues. IMPRESSION: 1. Postsurgical changes status post right hip arthroplasty. Dictated by: Josh Steward M.D. on 01/14/2019 at 12:39 Approved by: Josh Steward M.D. on 01/14/2019 at 12:43
[2019-01-14] MEDS: LACTATED RINGERS 1,000 ML 42 ML IV ×2 (06:50→10:17)
[2019-01-14] MEDS: ACETAMINOPHEN 325 MG TABLET 975 MG PO ×3 (07:33→21:13)
[2019-01-14] MEDS: PREGABALIN 75 MG CAPSULE PO (07:34)
[2019-01-14] MEDS: MELOXICAM 7.5 MG TABLET 15 MG PO (07:34)
[2019-01-14] MEDS: METOCLOPRAMIDE 10 MG/2 ML INJ IV (07:35)
--- NOTE | 2019-01-14 07:43 | PM.PREOP ---
Pre-operative Note Interval Note History & Physical reviewed/Exam performed by Physician: Yes Changes to H&P: No H&P completed within 30 days and has changed as indicated here:: All clearances are on the chart.
--- NOTE | 2019-01-14 07:44 | P.OP_ITS ---
Operative Date/Time/Diagnoses Date of procedure: 01/14/19 Time of procedure: 10:20 Pre-op diagnosis: Right shoulder massive, irreparable rotator cuff tear Post-op diagnosis: same Procedure & Clinicians Procedure: Right reverse total shoulder Same procedure as scheduled: Yes Indications: The patient is had chronic right shoulder pain unresponsive to nonoperative therapies. Radiographic studies have revealed changes consistent with a massive rotator cuff tear. They have elected to proceed with reverse total shoulder replacement after discussion of the risks benefits and alternatives. Risks discussed included but were not limited to: Failure to improve, instability, infection, nerve damage, deep venous thrombosis, pulmonary embolism, stroke, coma, myocardial infarction and . Surgeon: Ruben Carnes Universal Branch Consultant: Roland Trammell Click Yes if Unassisted: No Anesthesia Type: General, Peripheral nerve block and Local Operative Notes Findings: Massive rotator cuff tear including all 4 tendons. Extensive remodeling of the greater tuberosity consistent with articulation with the acromion. Closure Type: primary Specimen(s): none sent Prosthetic devices, grafts, tissues, transplants, or devices: Implants used in this procedure were manufactured by the [employer] and included an RSP reverse total shoulder system with a 30 mm glenoid base plate with porous coating, 4 locking bolts measuring 34, 22, 18 and 18 mm in length, a size 14 standard porous-coated reverse stem, a 36 mm +4 humeral socket insert and a 36 mm neutral glenoid head with retaining screw. Applied: drain(s) and implant(s) Estimated Blood Loss (mL): 200 Blood products transfused: none Procedure in detail: The patient was seen in the preoperative area where they identified the right shoulder as the operative site and this was marked with my initials. They received preoperative antibiotics and underwent the induction of an interscalene block. They were taken to the operating room and placed on the operating room table in a supine position with the underwent the induction of a general anesthetic. There were then repositioned in the ?beach chair? position using a dedicated positioner. All pressure points were well padded. The knees were slightly bent to prevent tension on the sciatic nerves. The right arm was prepared from the fingertips to the base of the neck with ChloraPrep in the usual fashion and draped through sterile drapes. An approximately 15 cm incision was created starting at the clavicle just above the coracoid and going to the deltoid insertion. The deltopectoral interval was used to access the shoulder taking the vein to the medial side. The vein was protected throughout the case. The upper 1 cm of the pectoralis major was r eleased. The biceps tendon was ruptured and there was no substantive remaining subscapularis tendon. The shoulder was dislocated and a proximal humeral osteotomy performed using an extramedullary guide. A proximal humeral protector was then placed. Retractors were placed access the glenoid. An inferior capsular release was performed with care being taken to protect the axillary nerve. The soft tissues were removed circumferentially around the glenoid. The guide was used to drill the guide hole in the center of the inferior glenoid. The tap was placed and used as a guide for the reamer. The tap was then removed and the glenoid base plate inserted. The peripheral locking screws were then placed through the appropriate guide. A trial glenoid head was applied. We then turned our attentio n to the humerus. The proximal humeral protector was removed. Cylindrical reamers were used to size the canal. Broaching was then performed beginning with a small broach and working up until a line to line fit with the reamer was obtained. The guide for the proximal metaphyseal reamer was then applied and the metaphysis was reamed appropriately. The trial metaphyseal portion of the body was then applied to the broach. Trial reductions were performed and the size of the glenoid head and the cup were optimized. Stability was checked in maximal internal and external rotation and range of motion was checked to allow access to the top of the head, internal rotation to an excess of 50? in the ?scarecrow position? and the ability to reach the groin. The appropriate final prosthetic components were then opened. There was no impingement or tendency for dislocation in extremes of internal or external rotation. The glenoid head was impacted into position and checked for rotational and axial stability before placing the set screw. The humeral prosthetic was then impacted into position. The humeral cup was placed. The joint was relocated and irrigated. A deep drain was placed. The deltopectoral interval was reapproximated with 0 Vicryl. Subcutaneous layer was closed with interrupted 3-0 Vicryl and skin with a running 3 0 V lock suture. Subcutaneous tissues were then infiltrated with 0.5% Marcaine for postoperative pain control. An Aquacel Ag dressing was applied and the patient's arm was placed in a sling. The patient was then transferred to the recovery room in good condition having tolerated the procedure well. Complications: none Post-operative Condition: stable Disposition: PACU Plan for aftercare: The patient will be maintained on pendulum exercises for the 1st 6 weeks with sling wear. He will then be slowly advancing his strengthening program to develop the anterior deltoid. He will be maintained in the hospital overnight and potentially discharged tomorrow if he is stable.
[2019-01-14] MEDS: CEFAZOLIN 2 GM/100 ML FROZ.PIGGY IV (08:35)
--- NOTE | 2019-01-14 09:05 | SUR.OPER ---
Beach chair with Schlein shoulder positioner. Lower body on padded OR bed. Head in foam padded head cradle, secured with straps. Non-operative arm secured <90 degrees abduction and propped with pillows on arm board, additionally taped to bed. Pillow under knees. Safety belt at thigh. Cloth tape over blanket over lower legs.
[2019-01-14] MEDS: BUPIVACAINE 0.5% W/ EPI (PF) VIAL 30 ML INJ (09:15)
[2019-01-14] MEDS: TRANEXAMIC ACID 1,000 MG VIAL 1000 MG INJ ×2 (09:15→09:31)
[2019-01-14] MEDS: fentaNYL 100 MCG/2 ML INJ 50 MCG IV ×3 (11:13→11:35)
[2019-01-14] MEDS: hydrOXYzine 50 MG/ML INJ IM (11:22)
--- NOTE | 2019-01-14 11:30 | SUR.PHASEI ---
1105 abnormal EKG, Riri Ye, RN and Vianney Chapin, RN confirmed that it was unchanged from pre-op nerve block. Pt very diaphoretic, wiped with cool washcloths, Dr. Jordan here, confirmed that rhythm is unchanged, informed of diaphoresis, VS acceptable, no orders given. 1132 See emar for pain meds. Incont, on bedpan for BM per pt request. Pain improved /, remains diaphoretic
--- NOTE | 2019-01-14 11:37 | SUR.PHASEI ---
Pain level improving, doesn't want to be taken off the bedpan yet. BLAST FURNACE TENDER fanning him, expresses appreciation for it. Continue to medicate for pain, ice chips given.
--- NOTE | 2019-01-14 12:14 | SUR.PHASEI ---
1203 Pt urinated lg quantity in the bed, had difficulty rolling from side to side due to body habitus, floor coordinator brought down one of the new beds which can be turned side to side for easier patient care and linen changing. Transfer board used to move patient into a clean bed. Tolerated well, verbally sparing with the nurses in good humor. Dressing remains CDI. Diaphoresis has improved, skin moist enough that I was unable to get and accurate temp. Skin warm and pink. Resp unlabored. Has had no other complaints of pain other than the shoulder. 1207 Transported to floor by another Rn and LIVESTOCK JUDGING COACH. Clothing bag and CPAP to room with pt. Transported on O2 at 2LNP. Report called to floor RN, no questions unanswered.
--- NOTE | 2019-01-14 12:23 | SUR.PHASEI ---
Late entry - When IM vistaril was given, it was noted that the alcohol swab was dirty from prepping the injection site. Extra cleansing done at site until swab was clean.
--- NOTE | 2019-01-14 12:32 | PC.NURSE ---
Addendum entered by Elida Crowder R.N. 01/14/19 15:41: Hemovac output: Patient had a total of 250 ml out of Hemovac since he arrived to the floor. Note faxed to Dr Carnes (who is still down in surgery) to inform him of the same. Joellen ago RN aware. Working with PT at this time. Addendum entered by Elida Crowder R.N. 01/14/19 15:00: Correction: Patient reports that he has numbness/tingling in RUE which was present on arrival to the unit (my initial note indicated that his sensation was WNL). States tingling is starting to go away and I'm moving my fingers well. Was medicated with 10 mg Oxycodone and scheduled Tylenol, ice pack refreshed and placed to R shoulder. Tolerated salad for lunch. Just did room air trial with sats down to 87-88%. Replaced cannula at 2L, cont pulse ox in place, sats now 95%. Light in reach, bed alarm on. Addendum entered by Elida Crowder R.N. 01/14/19 12:50: Taken off bedpan for now. Was unable to have a BM but is definitely passing flatus. Remains diaphoretic and hot feeling (see recovery room notes). Cool washcloth to forehead, provided ice chips and ice water. Denies chest pain/pressure or palpitations. Denies shortness of breath. Lungs CTA. HRR, distant. Auscultation limited by body habitus. Original Note: Post-op: Arrived to room 212 at 1205. Alert and oriented X3, a bit drowsy. Dressing to R shoulder C/D/I, sling in place. Hemovac patent and compressed with sanguinous drainage. Circulation/sensation WNL. Strong radial pulse in RUE, skin warm and pink, cap refill <2 sec. 2L O2, sats in the mid 90's. Rates R shoulder pain not that bad, maybe a 2/10. Wanted to get on bedpan as soon as he got up here, so we are assisting with that. Oriented to room and call light and encouraged to make needs known. Call light within reach, bed alarm on.
[2019-01-14] MEDS: LACTATED RINGERS 1,000 ML 125 ML IV ×2 (14:05→21:13)
[2019-01-14] MEDS: OXYCODONE IR 10 MG TABLET PO (14:09)
--- NOTE | 2019-01-14 15:00 | PT.IIE ---
Current Diagnoses Complete rotator cuff tear or rupture of right shoulder, not specified as traumatic (01/14/19) Surgery Performed Operation Date: 01/14/19 07:45 Actual Procedures p Reverse Total Shoulder Arthroplasty(Right) - Ruben Carnes MD Surgical History (Last Updated 01/10/19 @ 12:50 by Shama Rodney RN) Anesthesia (Resolved) History of carpal tunnel release (Resolved ~2002) History of knee replacement (Resolved) History of permanent cardiac pacemaker placement (Resolved 10/26/17) Medical History (Last Updated 01/10/19 @ 12:49 by Shama Rodney RN) BPH (benign prostatic hyperplasia) (Chronic) Carpal tunnel syndrome (Resolved ~2014) Diabetes (Chronic ~1999) Hemorrhoid (Chronic ~1989) Hyperlipidemia (Chronic) Hypertension (Chronic) Pacemaker (Chronic 10/26/17) Recurrent sinusitis (Chronic ~1969) Rheumatoid arthritis (Chronic ~2014) Shoulder pain (Chronic ~2017) Sleep apnea (Chronic ~1999) Physical Therapy Inpatient Evaluation/Re-Eval M1 PT/OT-IP Prior Functional Status Start: 01/14/19 13:12 Freq: NEEDED Status: Active Protocol: Document 01/14/19 15:00 AB (Rec: 01/14/19 16:19 AB [id number]) Medical Review Prior Functional Status Medical History Reviewed Yes Communication able to make needs known Mobility and Gait pt stated that he is independent with all mobilities and ambulation without AD; stated that he has 2 falls ~ 3 months ago resulting with the rotator cuff tear Social History Household Members other Living Arrangements House Number of Floors (Floors) Two Floors Number of Stairs To Enter/Railing? pt will stay at his daughter's house. has 2 steps to enter without rails; pt gennaro stay on main level of the house Home Environment High Toilet,Walk in Shower Home Equipment Shower Seat without Backrest, Hand Held Shower Additional Social History Comment pt stated that his daughter just had a hip replacement ~ 5 weeks ago. has hiking poles M2 PT-IP Current Condition Start: 01/14/19 13:12 Freq: NEEDED Status: Active Protocol: Document 01/14/19 15:00 AB (Rec: 01/14/19 16:19 AB [id number]) Physical Therapy Current Condition Current Condition Evaluation Date 01/14/19 Treatment Diagnosis s/p R reverse TSA; difficulty in walking Onset Date 01/14/19 Precautions Shoulder Precautions Sling,PROM,Internal Rotation to Body,No External Rotation, No Abduction,Forward Flexion to 90 degrees,Pendulums Weight Bearing Status Weight Bearing Status Non-Weight Bearing Allowed Weight Bearing Amount (enter % R UE NWB or #) (%) M3 PT-IP Subjective Start: 01/14/19 13:12 Freq: NEEDED Status: Active Protocol: Document 01/14/19 15:00 AB (Rec: 01/14/19 16:19 AB [id number]) Subjective Physical Therapy Visit Type Type Initial Evaluation Visit Start Time 15:00 Visit Stop Time 15:42 Total Visit Minutes 42 Number of PARI MUTUAL TICKET CHECKER Visits 0 Physical Therapy Visit Comments Patient Comments pt requested to use the toilet Therapy Pain Assessment Pain When Pain Assessed At Rest Pain Present Pain Present Pain Reported Location Right Shoulder Intensity 6 Scale Used Numeric (1 - 10) Pain Management Techniques Re-positioning,Timing of Activity with Medications M4 PT-IP Mobility and Gait Start: 01/14/19 13:12 Freq: NEEDED Status: Active Protocol: Document 01/14/19 15:00 AB (Rec: 01/14/19 16:19 AB [id number]) PT-Bed Mobility Assessment Supine to Sit Supine to Sit Maximum Assistance,Head of Bed Elevated Sit to Supine Sit to Supine Standby Assistance PT-Transfer Assessment Sit to and From Stand Sit to and from Stand Standby Assistance Equipment Orthotic/Prosthetic Devices or Brace: Yes Transfers Transfer Destination Toilet Transfer Technique pt ambulated without AD Transfer Ability Level of Assist Contact Guard Assistance Comments Mobility Comments pt (+) SOB during mobility. required CGA with initial standing and ambulation to the toilet. pt tends to hold on to the wall for support. pt directs his own care. pt was able to maintain standing while using the toilet SBA. required assist with hygiene care. Gait Assessment Gait Gait Assistance Required: Standby Assistance,Contact Guard Assist Distance (Feet) 10 Able to Maintain Weight Bearing Status Yes During Gait Assistive Devices Assistive Device None Gait Deviations General Gait Pattern Antalgic Factors Limiting Gait Function Factors Limiting Gait Function Decreased Activity Tolerance, Decreased Strength,Limited Range of Motion,Pain,Poor Balance,Poor Safety Awareness Comments Gait Comments pt presents with unsteady waddling gait PT-Balance Assessment Sitting Balance and Reactions Static Sitting Balance Ability Good Dynamic Sitting Balance Ability Good Standing Balance and Reactions Static Standing Balance Ability Fair Dynamic Standing Balance Ability Fair Device Used without AD M5 PT-IP Objective Assessments Start: 01/14/19 13:12 Freq: NEEDED Status: Active Protocol: Document 01/14/19 15:00 AB (Rec: 01/14/19 16:19 AB [id number]) Orientation Orientation/Cognition Level of Alertness Alert Orientation Name,Place,Situation Safety Awareness Decreased Safety Awareness Strength Lower Extremity Strength Assessment Right Impaired Knee 3+/5 Sensation Assessment Sensation Gross Sensation Right UE Impaired Light Touch Impaired Proprioception (Position) Impaired Sensation Description Numbness Muscle Tone Muscle Tone WNL Yes M6 PT-IP Treatment Start: 01/14/19 13:12 Freq: NEEDED Status: Active Protocol: Document 01/14/19 15:00 AB (Rec: 01/14/19 16:19 AB [id number]) Physical Therapy Treatment Education Education Provided Precautions,Weight Bearing Status,Post-Op Packet,Safety Brace Education Donning,[place],Patient Other Treatments Other Treatment Performed educated pt on don/doffing of sling. stated that he has one and knows how to put it on since he helped his with it before. M7 PT-IP Assessment and Plan Start: 01/14/19 13:12 Freq: NEEDED Status: Active Protocol: Document 01/14/19 15:00 AB (Rec: 01/14/19 16:19 AB [id number]) PT Summary Assessment and Plan Potential Rehabilitation Potential Good Status of Condition at Evaluation Evolving Summary Impairments Pain,ROM,Strength,Balance, Coordination,Sensation,Tone, Cognition,Bed Mobility, Transfers,Gait,Activity Tolerance Assessment Summary pt requiring one person assist with mobility. pt plans to go home with his daughter to assist him. d/c plan depending if daughter will be able to provide necessary assistance as daughter had her hip replacement ~ 5 weeks ago per pt. pt directs his own care and requires cues for safety. will continue to assess progress for safe d/c needs. Goals Bed Mobility Goal Standby Assistance Transfer Goal Standby Assistance Gait Goal Standby Assistance Gait Distance 200 Other Goals up/down 2 steps without rails SBA Days to Meet Goals 5 Frequency of Treatment Frequency Of Treatment Twice a Day Treatment Plan Physical Therapy Treatment Plan Bed Mobility Training,Transfer Training,Gait Training, Therapeutic Exercise,Balance Retraining,Post Op Education, Discharge Planning,Hot or Cold Pack,Neuromuscular Re-ed, Coordination Retraining,Manual Therapy Recommendations To Nursing Amount of Assist Needed 1 Person Assist Discharge Recommendations PT Discharge Recommendations Home with 16/10 Assist, Outpatient PT Equipment Needed for Home Before SPC if not safe without AD Discharge
[2019-01-14] MEDS: SIMVASTATIN 20 MG TABLET PO (17:13)
[2019-01-14] MEDS: METFORMIN HCL 500 MG TABLET 1000 MG PO (17:13)
[2019-01-14] MEDS: INSULIN ASPART 100 UNIT/ML INSULN PEN SUBCUT ×2 (17:48→21:17)
--- NOTE | 2019-01-14 18:43 | CM.DANOTE ---
DCP assessment: EMR Reviewed: patient is a 68 yr old male who was admitted for Rt reverse total shoulder preformed by Dr. Bower. PCP is Dr. De Oliveira. CM met with patient at bedside and explained CM/RN role. Patient was alert and oriented and stated he is I with ADL's at baseline. Patient has a Post-op appointment with Dr. Bower scheduled for 01/24/2019 and will f/u with OP PT when medically stable. PT evaluation done today and stated patient is ok to D/C home with assistance. Insurance: 1st: Medicare 2nd: for life. Plan: D/C to daughters house for 3 weeks. Daughter plans on picking patient up at d/c. No identified d/c planning needs noted at this time. Cher Matos RN. Discharge Planning/Care Management CM Discharge Assessment Start: 01/14/19 18:42 Freq: Status: Active Protocol: Document 01/14/19 18:42 HS (Rec: 01/14/19 18:43 HS [id number]) Discharge Planning Assessment Assigned Waist Cutter Cher Matos RN DPOA/Assigned Designee Name Raphael Matos (Daughter) Contact Information [phone] Advance Directives? Yes History Provided By Patient Has Patient been admitted in last 30 No days? Prior Living Arrangements House Household Members other Type of transporation used prior to Drives own vehicle admit Independent with ADL's Yes Is patient alert and oriented? Yes Caregiver for Another No Patient/Family Preference OP PT Therapy Barriers to Discharge No Discharge Plan Home Referrals Initiated None needed Whiteboard Updated in Patient Room with Yes name and ext. # of Waist Cutter Review Status In Process Next Review Type Continued Stay Review Pre-Anesthesia Assessment Start: 01/10/19 12:40 Freq: Status: Active Protocol: Document 01/10/19 12:40 CAB (Rec: 01/10/19 13:17 CAB [id number]) Pre-Anesthesia Assessment PAC Comment Pt declined scheduling PAC phone assessment, chart review only. Patient Information Reviewed Via Chart Review Diagnostic Results EKG Primary Care Provider Shayy De Oliveira Medical Clearance Received Yes Seen Specialist in Last 12 Months Yes Specialist Seen Computer Numerical Control Grinder,Orthopedist Comment PCP pre-op/clearance scanned to record Primary Language [place]er Website Project Manager Required No Height 185.42 cm Weight 158.304 kg Body Mass Index (BMI) 46.0 Anesthesia Review Requested Yes: Surgeon requested re: Weight/BMI alcohol intake current alcohol intake frequency a few times a month Smoking Status Former smoker Substance Use Type does not use Pain Present Pain Reported Musculoskeletal Symptoms Joint Pain,Limited Range of Motion,Muscle Weakness History of Falling (Recent or History of Yes ) Patient is completely paralyzed or No completely immobile Mental Status Oriented to own ability Hx Sleep Apnea Yes: Unknown CPAP compliance Currently Taking a Beta Nataly Yes: Toprol Can You Climb a Flight of Stairs Without No SOB Anti-Coagulant Therapy No Has a Computer Numerical Control Grinder Yes: Dr. Oquendo Cardiac Testing Yes: Echo 10/26/17 [facility] Hx Pacemaker/ICD Yes Pacemaker Rep Required? No: Pacer form scanned and put to surgery folder for dos Cardiac Clearance Received Yes Comment Cardiac records scanned to record Urinary Catheter Present No Hx Urinary Self Catheterization No Diabetes Yes HgbA1C 5.9 Date 10/28/18 Presence of External or Internal Medical Yes: Pacemaker Devices Marital Status / Health Care Proxy/Next of Kin Raphael (daughter) Health Care Proxy Advance Directives? Yes
[2019-01-14] MEDS: OXYCODONE IR 5 MG TABLET PO (19:34)
[2019-01-14] MEDS: ASPIRIN EC 81 MG TABLET PO (21:15)
--- NOTE | 2019-01-14 23:32 | PC.NURSE ---
Pt A&OX3. 88% RA, 94% 2LNC. denied chest pain. vss. dressing cdi. sling on. denied n/v. cms+. able to wiggle all five fingers. radial pulse palpable. sba to the BR. call light in reach. bed alarm active.
[2019-01-15] VITALS (7 sets, daily range): BP systolic 145–159; BP diastolic 68–87; PULSE 60–62; RESP 17–21; TEMP 36.1–37; O2SAT 80–94
[2019-01-15] MEDS: OXYCODONE IR 5 MG TABLET PO ×3 (00:38→12:32)
--- NOTE | 2019-01-15 00:51 | PC.NURSE ---
Addendum entered by Caren Russo R.N. 01/15/19 05:07: Assisted to bathroom to void and then back to bed. Once back in bed complained of feeling SOB and O2 sat at 80% so placed on oxygen per NC at 1L/min and sat now at 93%. States pain is improved at 2/10 but still complains about stiffness in elbow as unable to straighten arm so sling undone so forearm could be more extended. Arm on pillows for support and ice pack reapplied. Had 100cc from hemovac this shift. Addendum entered by Caren Russo R.N. 01/15/19 04:16: States pain still unrelieved so medicated with Oxycodone. Addendum entered by Caren Russo R.N. 01/15/19 03:09: States pain is currently 5/10 located in right elbow and states it is stiff, crampy and throbbing. Too early for Oxycodone so medicated with Naproxen and ice applied. Original Note: Patient is alert and oriented. Breath sounds diminished but CTA. Using own CPAP and sat is 93%. HRR. Denies nausea. BT present and is passing flatus. Voiding per urinal; denies dysuria, frequency or urgency. Able to move self in bed. Gait/transfer not assessed as not out of bed yet this shift. Dressing to right shoulder is CDI and arm is in sling. CMS intact. Complains of pain/stiffness in right elbow severity 4/10 so medicated with Oxycodone and ice pack applied. Wearing bilateral SCD's. Tegaderm to chronic leg ulcer is CDI. Fall risk score is moderate; bed alarm is activated.
[2019-01-15] MEDS: NAPROXEN 250 MG TABLET 500 MG PO (02:58)
[2019-01-15 06:37] LABS: Hematocrit 36.8 % (41-53); Hemoglobin 12.2 g/dL (13.5-17.5); Mean Corpuscular HGB Conc 33.2 % (30-36); Mean Corpuscular Hemoglobin 30.8 PG (26-34); Mean Corpuscular Volume 92.7 fL (80-100); Platelet Count 126 X10^3/uL (150-400); Red Blood Cell Count 3.97 X10^6/uL (4.5-5.9); Red Cell Distribution Width 13.2 % (11.6-14.8); White Blood Cell Count 9.1 X10^3/uL (4.5-11.0)
--- NOTE | 2019-01-15 07:22 | P.DS_ITS ---
History of Present Illness History of Present Illness Date Patient Seen: 01/15/19 Time Patient Seen: 07:22 Chief complaint: [id number] Narrative: The history and physical is contained in the chart in a previously completed note. Please refer to that note for this information. Discharge Providers Provider Date of admission: 01/14/19 06:07 Discharge Date: 01/15/19 Primary care physician: Shayy De Oliveira DO Consults: 01/14/19 12:28 Consult to Discharge Planning Routine Comment: Consult to Physical Therapy Evaluate & Treat Comment: Physician Instructions: Evaluate and Treat Consult to Respiratory Therapy Evaluate & Treat Comment: Physician Instructions: Evaluate and treat Discharge provider: Ruben Carnes MD Summary Hospital Course Discharge Diagnosis: 1. Right shoulder massive irreparable rotator cuff tear. 2. Mild post hemorrhagic anemia Hospital Course: The patient was admitted to the hospital and taken directly to the operating room on January 14, 2013. He underwent a right reverse total shoulder replacement without complication. He was reasonably comfortable for the 1st postoperative day with his main complaint being of elbow plane while in the sling. This was relieved by allowing the elbow to straighten. On the morning of postoperative day 1 it was felt he was ready for discharge home. Status at Discharge Cognitive/behavioral status at discharge: oriented Functional status at discharge: independent ambulation Overall status at discharge: patient is progressing back to baseline Time Spent with Patient Time spent: Less than 30 minutes Exam Vital Signs (past 8 hours): - 01/15/19 00:30 01/15/19 05:00 01/15/19 05:01 Temperature 96.9 F L 97.9 F Pulse Rate 60 60 Respiratory Rate 17 21 Blood Pressure 145/84 H 149/87 H Pulse Oximetry 93 94 80 L 01/15/19 05:11 Temperature Pulse Rate Respiratory Rate Blood Pressure Pulse Oximetry 93 Oxygen Delivery Method Nasal Cannula Oxygen Flow Rate 1 Narrative Exam Narrative: Right shoulder dressing is intact with a single small spot of drainage. Light touch is intact in the radial, ulnar, median, muscular cutaneous and axillary nerve distribution. He can extend his thumb, abduct his thumb, abduct his fingers, fire his biceps and deltoid. Objective Labs Result Diagrams: 01/15/19 06:13 Labs: Laboratory Results - last 24 hr 01/15/19 06:13 WBC 9.1 RBC 3.97 L Hgb 12.2 L Hct 36.8 L MCV 92.7 MCH 30.8 MCHC 33.2 RDW 13.2 Plt Count 126 L Discharge Plan Discharge Plan Patient Disposition: Home Discharge Med Rec/Prescriptions Prescriptions: New acetaminophen 325 mg Tablet 975 mg PO TID 30 Days Qty: 270 RF: 0 aspirin 81 mg Tablet,Delayed Release (Dr/Ec) 81 mg PO BID 42 Days Qty: 84 RF: 0 oxycodone 5 mg Tablet 5 mg PO Q3HR PRN (Reason: Pain, Moderate (4-6)) Qty: 40 RF: 0 Continued lisinopril 20 mg tablet 40 mg PO DAILY Qty: 180 RF: 0 (DME) blood-glucose meter [Blood Glucose Monitoring] kit See Dose Instructions .ROUTE .MEDSUPPLY Qty: 1 RF: 0 (DME) [place] Freestyle lite test strips Qty: 1 RF: 0 insulin glargine 100 unit/mL (3 mL) insulin pen 26 unit Sub-Q DAILY Qty: 15 RF: 5 (DME) pen needle, diabetic [Comfort EZ Pen [place]] 31 gauge x 3/16 needle See Rx Instructions .ROUTE .MEDSUPPLY Qty: 100 RF: 0 metformin 1,000 mg tablet 1,000 mg PO BID Qty: 180 RF: 1 naproxen 500 mg tablet 500 mg PO BID PRN (Reason: pain) Qty: 60 RF: 5 felodipine 5 mg Tablet Extended Release 24 Hr 5 mg PO DAILY RF: 0 tamsulosin 0.4 mg capsule 1 tab PO DAILY RF: 0 simvastatin 20 mg tablet 1 tab PO QPM RF: 0 loratadine 10 mg tablet 1 tab PO DAILY RF: 0 metformin 500 mg tablet 1 tab PO QAM RF: 0 triamcinolone acetonide 0.025 % cream 1 applic Topical BID PRN (Reason: unknown) RF: 0 metoprolol succinate 25 mg tablet extended release 24 hr 1 tab PO DAILY RF: 0 One-A-Day Men's 50 Plus 400-20-370 mcg Tablet 1 tab PO DAILY RF: 0 mometasone 1 applic otic (ear) DIRECTED RF: 0 Discontinued mupirocin 2 % ointment 1 applictn TOP TID Qty: 30 RF: 0 Prevnar 13 (PF) 0.5 mL syringe 0.5 ml IM ONCE Qty: 0.5 RF: 0 Shingrix Adjuvant Component-PF suspension 0.5 ml IM ONCE Qty: 0.5 RF: 0 aspirin [Aspir-81] 81 mg Tablet,Delayed Release (Dr/Ec) 81 mg PO QPM RF: 0 Follow up/Referrals: Ruben Carnes MD [Physician] - 2 Weeks Shyay De Oliveira DO [Primary Care Provider] - Provider Discharge Instructions Diet: Diet as Tolerated and Carb-consistent/Diabetic Activity: Keep your right arm in the sling except for pendulum exercises and for hygiene. Cold/Heat Therapy: Apply ice to the right shoulder for 15 minutes every hour as needed for pain relief. Skin/Wound/Dressing Care Report to your healthcare provider any signs of infection, such as:: chills, fever, night sweats, increased pain, unusual drainage and unusual redness Dressing: Leave the dressing intact until your follow-up. You may shower with the dressing in place. If the central strip of the dressing becomes saturated with either water or blood, please call the office to have it changed. Visit Report/Discharge Packet Instructions: DI for Shoulder Replacement Stand Alone Forms: Surgery Discharge Discharge Data Primary Care Provider: Shayy De Oliveira
[2019-01-15] MEDS: METFORMIN HCL 500 MG TABLET 1000 MG PO (10:42)
[2019-01-15] MEDS: ACETAMINOPHEN 325 MG TABLET 975 MG PO (10:44)
[2019-01-15] MEDS: ASPIRIN EC 81 MG TABLET PO (10:45)
[2019-01-15] MEDS: FELODIPINE ER 5 MG TAB PO (10:47)
[2019-01-15] MEDS: LISINOPRIL 20 MG TABLET 40 MG PO (10:47)
[2019-01-15] MEDS: LORATADINE 10 MG TABLET PO (10:52)
[2019-01-15] MEDS: METOPROLOL ER 25 MG TABLET PO (10:52)
[2019-01-15] MEDS: TAMSULOSIN 0.4 MG CAPSULE PO (10:53)
[2019-01-15] MEDS: SODIUM CHLORIDE 0.9% FLUSH 10 ML IV (10:55)
[2019-01-15] MEDS: INSULIN GLARGINE 100 UNIT/ML 3ML PEN 26 UNIT SUBCUT (11:03)
[2019-01-15] MEDS: INSULIN ASPART 100 UNIT/ML INSULN PEN SUBCUT (12:14)
--- NOTE | 2019-01-15 12:33 | PT.IPTN ---
Current Diagnoses Complete rotator cuff tear or rupture of right shoulder, not specified as traumatic (01/14/19) Surgery Performed Operation Date: 01/14/19 07:45 Actual Procedures p Reverse Total Shoulder Arthroplasty(Right) - Ruben Carnes MD Physical Therapy Treatment Note M2 PT-IP Current Condition Start: 01/14/19 13:12 Freq: NEEDED Status: Active Protocol: Document 01/14/19 15:00 AB (Rec: 01/14/19 16:19 AB [id number]) Physical Therapy Current Condition Current Condition Evaluation Date 01/14/19 Treatment Diagnosis s/p R reverse TSA; difficulty in walking Onset Date 01/14/19 Precautions Shoulder Precautions Sling,PROM,Internal Rotation to Body,No External Rotation, No Abduction,Forward Flexion to 90 degrees,Pendulums Weight Bearing Status Weight Bearing Status Non-Weight Bearing Allowed Weight Bearing Amount (enter % R UE NWB or #) (%) M3 PT-IP Subjective Start: 01/14/19 13:12 Freq: NEEDED Status: Active Protocol: Document 01/15/19 11:45 HH (Rec: 01/15/19 12:33 [email or web address]) Subjective Physical Therapy Visit Type Type Treatment Note Visit Start Time 11:45 Visit Stop Time 12:00 Total Visit Minutes 15 Notes co-tx with FIORELLA Hernandez. Pt's dtr at bedside. 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 M4 PT-IP Mobility and Gait Start: 01/14/19 13:12 Freq: NEEDED Status: Active Protocol: Document 01/15/19 11:45 HH (Rec: 01/15/19 12:33 [email or web address]) PT-Transfer Assessment Sit to and From Stand Sit to and from Stand Independent Equipment Orthotic/Prosthetic Devices or Brace: Yes Transfers Transfer Destination Chair Transfer Technique pt ambulated without AD Transfer Ability Level of Assist Standby Assistance Comments Mobility Comments Pt overall required SBA for mobility. Able to use toilet and transfer between bed and chairs with SBA and UE support from LUE. Pt cont appears very easily agitated and does not like follow instructions. Gait Assessment Gait Gait Assistance Required: Standby Assistance,Contact Guard Assist Distance (Feet) 160 Able to Maintain Weight Bearing Status Yes During Gait Assistive Devices Assistive Device None Gait Deviations General Gait Pattern Antalgic Factors Limiting Gait Function Factors Limiting Gait Function Decreased Activity Tolerance, Decreased Strength,Limited Range of Motion,Pain,Poor Balance,Poor Safety Awareness Comments Gait Comments Amb without AD. steady gait noted. Stair Climbing Assessment Evaluation Level of Assist On Stairs Standby Assistance Devices Stair Climbing Assistive Devices Straight Cane Technique/Endurance Stair Climbing Direction Ascend and Descend Stair Climbing Technique Step Over Step,Step to Step Number of Steps Climbed 3 Stair Climbing Set # Repetitions (reps) 5 Comments Stair Climbing Comments Pt ascend with step over pattern without UE support safely. However , he was impulsively doing step over gait without UE support and mild LOB posteriorly on the first 2 sets. Educated pt to use step to pattern and SPC on LUE for support. He was able to descend safely afterwards. M5 PT-IP Objective Assessments Start: 01/14/19 13:12 Freq: NEEDED Status: Active Protocol: Document 01/14/19 15:00 AB (Rec: 01/14/19 16:19 AB [id number]) Orientation Orientation/Cognition Level of Alertness Alert Orientation Name,Place,Situation Safety Awareness Decreased Safety Awareness Strength Lower Extremity Strength Assessment Right Impaired Knee 3+/5 Sensation Assessment Sensation Gross Sensation Right UE Impaired Light Touch Impaired Proprioception (Position) Impaired Sensation Description Numbness Muscle Tone Muscle Tone WNL Yes M6 PT-IP Treatment Start: 01/14/19 13:12 Freq: NEEDED Status: Active Protocol: Document 01/15/19 11:45 HH (Rec: 01/15/19 12:33 [email or web address]) Physical Therapy Treatment Exercises Exercises Shoulder Pendulums Education Education Provided Precautions,Weight Bearing Status,Post-Op Packet,Safety Brace Education Donning,Boling,Patient, Caregiver Other Treatments Other Treatment Performed shoulder pendulum M7 PT-IP Assessment and Plan Start: 01/14/19 13:12 Freq: NEEDED Status: Active Protocol: Document 01/15/19 11:45 HH (Rec: 01/15/19 12:33 [email or web address]) PT Summary Assessment and Plan Summary Progress Towards Goals Safe For Discharge Assessment Summary Pt cont to be easily agitated and does not like to follow instructions. He acts impulsively in general and requires constant cues for safety awareness. He did improve in overall mobility without using AD (with SBA), educated pt and her dtr to recommend pt to use SPC for stair climbing (step to for descend). Also educated pt on self kathy/doff with his armsling and shoulder pendulum . Pt is safe to be d/c dtr's home with assistance. Frequency of Treatment Frequency Of Treatment Discharge Recommendations To Nursing Amount of Assist Needed 1 Person Assist Discharge Recommendations PT Discharge Recommendations Home with 16/10 Assist, Outpatient PT
--- NOTE | 2019-01-15 12:57 | PC.NURSE ---
Discharge pt states pain is elevated and would like pain medicine for ride home, this was provided to pt. Aware of f/u apts with surgeon. d/c instrcutions provided to pt and his daughter. pt aware to contact MD with any additional questions or concerns. pt states he took all belongings with him. Drain and PIV removed prior to d/c. pt left in w/c with NEWSP[employer]ER REPORTER escort to car with his daughter.
== END 2019-01-15 12:50 | disposition home or self-care (01) | DRG 483 ==
PROVIDERS: Admitting Provider Orthopaedic Surgery; PCP Family Medicine; Visit Provider Orthopaedic Surgery
PROC: 0RRJ00Z Replacement of Right Shoulder Joint with Reverse Ball and Socket Synthetic Substitute, Open Approach (ICD-10-PCS; CPT 23472; principal; 2019-01-14 07:45)
DX: M75.121 Complete rotator cuff tear or rupture of right shoulder, not specified as traumatic (principal); Z68.42 Body mass index [BMI] 45.0-49.9, adult; M19.011 Primary osteoarthritis, right shoulder; G47.33 Obstructive sleep apnea (adult) (pediatric); E66.9 Obesity, unspecified; I10 Essential (primary) hypertension; E78.5 Hyperlipidemia, unspecified; E11.9 Type 2 diabetes mellitus without complications; R00.1 Bradycardia, unspecified; I25.10 Atherosclerotic heart disease of native coronary artery without angina pectoris; Z95.0 Presence of cardiac pacemaker; Z87.891 Personal history of nicotine dependence; Z79.4 Long term (current) use of insulin
CPT/HCPCS: 36415; 73020; 82962; 85027; 94760; 94762; 97162; 97530; C1776; J0690; J1100; J2250; J2704; J2765; J3010; J3410

== ENCOUNTER → 2019-02-04 09:47 | Outpatient (CLI) | payer MEDICARE, OTHER, SELFPAY ==
[2019-01-14 14:11] VITALS: BMI 46.0
[2019-02-04 10:41] LABS: Hemoglobin A1C% w Est Avg Glu 6.5 % (4.0-6.0)
[2019-02-04 10:52] LABS: Alanine Aminotransferase 31 IU/L (<50); Albumin 4.7 g/dL (3.5-5.0); Albumin Globulin Ratio 1.6 (1.0-2.8); Alkaline Phosphatase 82 U/L (38-126); Aspartate Aminotransferase 45 IU/L (17-59); BUN Creatinine Ratio 16.7 (6-22); Bilirubin Total 0.7 mg/dL (0.2-1.3); Blood Urea Nitrogen 15 mg/dL (9-20); Calcium 9.6 mg/dL (8.4-10.2); Carbon Dioxide 30 mmol/L (22-32); Chloride 98 mmol/L (98-107); Cholesterol 153 mg/dL (140-199); Estimated Glomerular Filt Rate > 60.0 mL/min (>60); Globulin 2.9 g/dL (1.7-4.1); Glucose 143 mg/dL (80-110); HDL Cholesterol 40 mg/dL (40-60); HEMOLYSIS < 15 (0-50); LDL Cholesterol Calculated 71 mg/dL (<100); Potassium 4.9 mmol/L (3.4-5.1); Sodium 139 mmol/L (137-145); Total Protein 7.6 g/dL (6.3-8.2); Triglycerides 211 mg/dL (35-150)
== END ==
PROVIDERS: PCP Family Medicine; Visit Provider Family Medicine
DX: Z51.81 Encounter for therapeutic drug level monitoring (principal); E11.8 Type 2 diabetes mellitus with unspecified complications; I10 Essential (primary) hypertension; Z79.4 Long term (current) use of insulin
CPT/HCPCS: 36415; 80053; 80061; 83036

== ENCOUNTER 2019-02-09 14:18 | Emergency (ER) | payer MEDICARE, OTHER, SELFPAY ==
[2019-01-14 14:11] VITALS: BMI 46.0
[2019-02-09 14:37] VITALS: BP 201/99; PULSE 91; RESP 22; TEMP 36.6; O2SAT 96
[2019-02-09 17:39] VITALS: BP 180/80; PULSE 90; RESP 18; O2SAT 98
--- NOTE | 2019-02-09 20:33 | ED.RECABL ---
HPI - Recheck/Abnormal Lab/Rx <Celeste YUE PerlaP-BC - Last Filed: 02/09/19 20:41> General Chief Complaint: Recheck/Abnormal Lab/Rx Stated Complaint: surgical incision broke open Time Seen by Provider: 02/09/19 16:49 Source: patient Mode of arrival: Ambulatory Limitations: no limitations History of Present Illness HPI narrative: The patient is a 68-year-old male former smoker with history of hypertension who presents with a chief complaint of ?my surgical incision broke open.He states that he had right-sided shoulder surgery three-view ago, and that last night he noticed a small area of blood. He states he has gone through 3 Band-Aids since last night. He denies any fevers nausea vomiting diarrhea. He denies any pain. He states that he recently had a Steri-Strips removed. He has not spoken with the surgeon. Related Data Home Medications Medication Instructions Recorded Confirmed felodipine 5 mg PO DAILY 10/26/17 01/14/19 loratadine 1 tab PO DAILY 10/26/17 01/14/19 tamsulosin 1 tab PO DAILY 10/26/17 01/14/19 One-A-Day Men's 50 Plus 1 tab PO DAILY 01/21/18 01/14/19 metformin 1 tab PO QAM 01/21/18 01/14/19 mometasone 1 applic OTIC (EAR) DIRECTED 01/21/18 01/14/19 triamcinolone acetonide 1 applic TOPICAL BID PRN 01/21/18 01/14/19 [place] Freestyle lite test strips #1 ea 09/03/18 01/14/19 Previous Rx's Medication Instructions Recorded lisinopril 20 mg tablet 40 mg PO DAILY #180 tab 06/25/18 blood-glucose meter #1 each 06/27/18 insulin glargine 100 unit/mL (3 26 unit SUB-Q DAILY #15 ml 01/08/19 mL) subcutaneous pen metformin 1,000 mg tablet 1,000 mg PO BID #180 tab 01/08/19 naproxen 500 mg tablet 500 mg PO BID PRN #60 tab 01/08/19 pen needle, diabetic 31 gauge x #100 each 01/08/19 3/ acetaminophen 975 mg PO TID 30 Days #270 tab 01/15/19 aspirin 81 mg PO BID 42 Days #84 tab 01/15/19 oxycodone 5 mg PO Q3HR PRN #40 tab 01/15/19 metoprolol succinate 25 mg 25 mg PO DAILY #90 tab 02/04/19 tablet,extended release 24 hr simvastatin 20 mg tablet 20 mg PO QPM #90 tab 02/04/19 Allergies Allergy/AdvReac Type Severity Reaction Status Date / Time iodine Allergy Unknown Verified 01/14/19 07:37 shellfish derived Allergy Verified 01/14/19 07:37 Review of Systems <PAO Contreras - Last Filed: 02/09/19 20:41> Review of Systems Narrative: GENERAL: Denies chills, fatigue, malaise, fever, sweats. HEENT: Denies sinus pain, ear pain, sore throat, difficulty swallowing, dizziness. RESPIRATORY: Denies dyspnea, cough, wheezing, hemoptysis, sputum. CARDIOVASCULAR: Denies chest pain, palpitations, orthopnea, edema, GASTROINTESTINAL: Denies nausea, vomiting, abdominal pain, diarrhea, constipation, melena. : Denies dysuria, frequency, incontinence, hematuria, urinary retention. MUSCULOSKELETAL: denies weakness, joint pain, or bony pain SKIN: See HPI NEUROLOGIC: Denies weakness, headache, numbness, change in speech, confusion, seizures, incoordination. PSYCHIATRIC: No concerning psychosocial issues. 12 point review of systems is negative except for those stated above Patient History <PAO Contreras - Last Filed: 02/09/19 20:41> Medical History BPH (benign prostatic hyperplasia) (Chronic) Carpal tunnel syndrome (Resolved ~2014) Diabetes (Chronic ~1999) Hemorrhoid (Chronic ~1989) Hyperlipidemia (Chronic) Hypertension (Chronic) Pacemaker (Chronic 10/26/17) Recurrent sinusitis (Chronic ~1969) Rheumatoid arthritis (Chronic ~2014) Shoulder pain (Chronic ~2017) Sleep apnea (Chronic ~1999) Surgical History Anesthesia (Resolved) History of carpal tunnel release (Resolved ~2002) History of knee replacement (Resolved) History of permanent cardiac pacemaker placement (Resolved 10/26/17) Family History Father History of heart disease Mother Diabetes mellitus History of heart disease Hypertension Hyperlipidemia Mental health problem Brother History of heart disease Sister Diabetes mellitus Social History household members: other Smoking Status: Former smoker second hand exposure: Yes (Sometimes, casnio) alcohol intake: current substance use type: does not use alcohol intake frequency: a few times a month Substance Use Type: does not use Exam <PAO Contreras - Last Filed: 02/09/19 20:41> Narrative Exam Narrative: GENERAL: This is a well-nourished, well-developed patient, in no acute distress HEAD: Atraumatic. Normocephalic. No temporal or scalp tenderness. EYES: Pupils equal round and reactive. Extraocular motions intact. No scleral icterus. No injection or drainage. ENT: Nose without bleeding, purulent drainage or septal hematoma. Throat without erythema, tonsillar hypertrophy or exudate. Uvula midline. Airway patent. NECK: Trachea midline. No JVD or lymphadenopathy. Supple, nontender, no meningeal signs. CARDIOVASCULAR: Regular rate and rhythm RESPIRATORY: No cough. No increased respiratory effort. No accessory muscle use. EXTREMITIES: No clubbing, cyanosis, or edema. No joint tenderness, effusion, or edema noted. Skin exam is noted. Positive pulse BACK: Nontender without deformity or crepitance. No flank tenderness. NEURO: AOx3. SKIN: Postoperative incision noted on right shoulder. 0.25 cm of dried blood on anterior aspect of the surgical incision. Rinse this off to find oozing blood. Evaluated wound to find no tunneling, no depth, superficial. Placed dressing on top. No spreading erythema. No drainage. No swelling noted. Initial Vital Signs Initial Vital Signs: Vital Signs Temperature 97.9 F 02/09/19 14:37 Pulse Rate 91 H 02/09/19 14:37 Respiratory Rate 22 02/09/19 14:37 Blood Pressure 201/99 H 02/09/19 14:37 Pulse Oximetry 96 02/09/19 14:37 <Yassine Magdaleno DO - Last Filed: 02/10/19 18:05> Initial Vital Signs Initial Vital Signs: Vital Signs Temperature 97.9 F 02/09/19 14:37 Pulse Rate 91 H 02/09/19 14:37 Respiratory Rate 22 02/09/19 14:37 Blood Pressure 201/99 H 02/09/19 14:37 Pulse Oximetry 96 02/09/19 14:37 Course <GLORIA Contreras-BC - Last Filed: 02/09/19 20:41> Vital Signs Vital signs: Vital Signs - 8 hr 02/09/19 14:37 02/09/19 17:39 Temperature 97.9 F Pulse Rate 91 H 90 Respiratory Rate 22 18 Blood Pressure 201/99 H 180/80 H Pulse Oximetry 96 98 <Yassine Magdaleno DO - Last Filed: 02/10/19 18:05> Vital Signs Vital signs: Vital Signs - 8 hr 02/09/19 14:37 02/09/19 17:39 Temperature 97.9 F Pulse Rate 91 H 90 Respiratory Rate 22 18 Blood Pressure 201/99 H 180/80 H Pulse Oximetry 96 98 MDM - Recheck/Abnormal Lab/Rx <WERO Contreras - Last Filed: 02/09/19 20:41> MDM Narrative Medical decision making narrative: The patient is a 68-year-old male who presents for chief complaint of an incision evaluation from his shoulder surgery 3 weeks ago. Exam illustrate 2 small opening, with no deep wound. He has no signs of infection. The patient adamantly declined any lab work, imaging etc and stated he wanted to leave as soon as possible. The wound was dressed. I discussed at length monitoring for signs and symptoms of infection. The patient reiterated that he did not when he lab work, imaging etc as he was already very frustrated with the wait today. Encouraged follow-up with PCP as well as a surgeon. Patient has no questions or concerns upon discharge. Discharge Plan Departure Patient Disposition: Home Clinical Impression: Visit for wound check Discharge Date/Time: 02/09/19 17:39 Activity Restrictions/Additional Instructions: I do not see any evidence of infection at your surgical incision today. Please remember that you have declined lab work and imaging, so if you're at all concerned please come back to the emergency department or follow up with primary care provider/orthopedic We have placed an absorbent dressing over it. Please follow up with primary care provider as well as your orthopedist. Please come back to emergency department for any acute concerns such as fever, nausea vomiting diarrhea etc Prescriptions: No Action lisinopril 20 mg tablet 40 mg PO DAILY Qty: 180 RF: 0 (DME) blood-glucose meter [Blood Glucose Monitoring] kit See Dose Instructions .ROUTE .MEDSUPPLY Qty: 1 RF: 0 (DME) [place] Freestyle lite test strips Qty: 1 RF: 0 insulin glargine 100 unit/mL (3 mL) insulin pen 26 unit Sub-Q DAILY Qty: 15 RF: 5 (DME) pen needle, diabetic [Comfort EZ Pen [place]] 31 gauge x 3/16 needle See Rx Instructions .ROUTE .MEDSUPPLY Qty: 100 RF: 0 metformin 1,000 mg tablet 1,000 mg PO BID Qty: 180 RF: 1 naproxen 500 mg tablet 500 mg PO BID PRN (Reason: pain) Qty: 60 RF: 5 metoprolol succinate 25 mg tablet extended release 24 hr 25 mg PO DAILY Qty: 90 RF: 0 simvastatin 20 mg tablet 20 mg PO QPM Qty: 90 RF: 0 felodipine 5 mg Tablet Extended Release 24 Hr 5 mg PO DAILY RF: 0 tamsulosin 0.4 mg capsule 1 tab PO DAILY RF: 0 loratadine 10 mg tablet 1 tab PO DAILY RF: 0 metformin 500 mg tablet 1 tab PO QAM RF: 0 triamcinolone acetonide 0.025 % cream 1 applic Topical BID PRN (Reason: unknown) RF: 0 One-A-Day Men's 50 Plus 400-20-370 mcg Tablet 1 tab PO DAILY RF: 0 mometasone 1 applic otic (ear) DIRECTED RF: 0 acetaminophen 325 mg Tablet 975 mg PO TID 30 Days Qty: 270 RF: 0 aspirin 81 mg Tablet,Delayed Release (Dr/Ec) 81 mg PO BID 42 Days Qty: 84 RF: 0 oxycodone 5 mg Tablet 5 mg PO Q3HR PRN (Reason: Pain, Moderate (4-6)) Qty: 40 RF: 0 Referrals: Shayy De Oliveira DO [Primary Care Provider] -
== END 2019-02-09 17:39 | disposition home or self-care (01) ==
PROVIDERS: Emergency Provider Nurse Practitioner Family; PCP Family Medicine
DX: Z48.00 Encounter for change or removal of nonsurgical wound dressing (principal); T81.89XA Other complications of procedures, not elsewhere classified, initial encounter
CPT/HCPCS: 99281; 99282

== ENCOUNTER 2019-02-16 11:50 | Emergency (ER) | payer MEDICARE, OTHER, SELFPAY ==
[2019-01-14 14:11] VITALS: BMI 46.0
[2019-02-16 11:57] VITALS: BP 192/72; PULSE 91; RESP 15; TEMP 36.8; O2SAT 97; BMI 43.7
[2019-02-16 13:24] VITALS: BP 175/74; PULSE 62; RESP 19; O2SAT 100
--- NOTE | 2019-02-17 20:05 | ED_ITS ---
HPI - GI Bleed General Chief complaint: GI Bleed Stated complaint: bloody BMovements Time Seen by Provider: 02/16/19 12:02 Source: patient Mode of arrival: Ambulatory Limitations: no limitations History of Present Illness HPI Narrative: Patient comes emergency department complaining of blood dripping from his bottom after bowel movement. Patient states he has never had this happen before. He states that he has not noticed any black stools or any maroon stools. He states the blood started with bowel movement. He sat on the toilet for few minutes and let the blood drip, and then finally put a what of toilet paper up to his anal area and stood up. He states some blood soak through the toilet paper in onto his underwear very briefly, but he believes the bleeding has stopped now. Patient denies any pain in his rectal area. No difficulty with bowel movements. No vomiting or diarrhea. He has had no fevers or other signs of illness. Patient states he has been feeling normal. No lightheadedness or dizziness. No chest pain or shortness breath. No other complaints at this time. Patient is not on any anticoagulants, other than aspirin. Related Data Home Medications Medication Instructions Recorded Confirmed tamsulosin 1 tab PO DAILY 10/26/17 02/12/19 One-A-Day Men's 50 Plus 1 tab PO DAILY 01/21/18 02/12/19 mometasone 1 applic OTIC (EAR) DIRECTED 01/21/18 02/12/19 triamcinolone acetonide 1 applic TOPICAL BID PRN 01/21/18 02/12/19 Horicon Freestyle lite test strips #1 ea 09/03/18 02/12/19 aspirin 81 mg tablet,delayed 81 mg PO DAILY 02/15/19 02/15/19 release Previous Rx's Medication Instructions Recorded blood-glucose meter #1 each 06/27/18 insulin glargine 100 unit/mL (3 26 unit SUB-Q DAILY #15 ml 01/08/19 mL) subcutaneous pen metformin 1,000 mg tablet 1,000 mg PO BID #180 tab 01/08/19 naproxen 500 mg tablet 500 mg PO BID PRN #60 tab 01/08/19 pen needle, diabetic 31 gauge x #100 each 01/08/1906/08 acetaminophen 975 mg PO TID 30 Days #270 tab 01/15/19 aspirin 81 mg PO BID 42 Days #84 tab 01/15/19 oxycodone 5 mg PO Q3HR PRN #40 tab 01/15/19 metoprolol succinate 25 mg 25 mg PO DAILY #90 tab 02/04/19 tablet,extended release 24 hr simvastatin 20 mg tablet 20 mg PO QPM #90 tab 02/04/19 amlodipine 10 mg tablet 10 mg PO DAILY #90 tab 02/12/19 lisinopril 40 mg tablet 40 mg PO DAILY #90 tab 02/12/19 loratadine 10 mg tablet 10 mg PO DAILY #90 tab 02/12/19 Allergies Allergy/AdvReac Type Severity Reaction Status Date / Time iodine Allergy Unknown Verified 02/16/19 11:57 shellfish derived Allergy Verified 02/16/19 11:57 Review of Systems Constitutional Constitutional: Denies chills, Denies fatigue, Denies fever(s), Denies frequent falls, Denies lethargy and Denies weakness Eyes Eyes: Denies change in vision, Denies eye discharge, Denies irritation and Denies loss of vision ENT Ears, Nose, Mouth, and Throat: Denies change in voice, Denies dizziness, Denies neck pain, Denies sore throat and Denies throat swelling Cardiovascular Cardiovascular: Denies chest pain, Denies irregular heart rhythm, Denies lightheadedness, Denies palpitations, Denies dyspnea, Denies dyspnea on exertion and Denies orthopnea Respiratory Respiratory: Denies cough, Denies dyspnea, Denies dyspnea on exertion and Denies wheezing Gastrointestinal Gastrointestinal: Denies abdominal pain, Reports hematochezia, Denies change in bowel habits, Denies diarrhea, Denies nausea and Denies vomiting Genitourinary Genitourinary: Denies hematuria, Denies flank pain, Denies urinary incontinence and Denies urinary urgency Musculoskeletal Musculoskeletal: Denies back pain, Denies muscle weakness, Denies neck pain, Denies numbness and Denies tingling Integumentary/Breasts Skin/Breast: Denies pruritus, Denies erythema, Denies rash and Denies wounds Neurologic Neurologic: Denies behavioral changes, Denies confusion, Denies dizziness, Denies frequent falls, Denies loss of vision, Denies numbness, Denies tingling and Denies weakness Psychiatric Psychiatric: Denies anxiety, Denies behavioral changes, Denies confusion, Denies depression, Denies homicidal ideation and Denies suicidal ideation Endocrine Endocrine: Denies fatigue, Denies flushing and Denies palpitations Hematologic/Lymphatic Hematologic/Lymphatic: Denies easy bruising Allergic/Immunologic Allergic/Immunologic: Denies urticaria, Denies throat swelling and Denies wheezing Patient History Medical History BPH (benign prostatic hyperplasia) (Chronic) Carpal tunnel syndrome (Resolved ~2014) Diabetes (Chronic ~1999) Hemorrhoid (Chronic ~1989) Obesity (Acute) Pacemaker (Chronic 10/26/17) Recurrent sinusitis (Chronic ~1969) Rheumatoid arthritis (Chronic ~2014) Shoulder pain (Chronic ~2017) Sleep apnea (Chronic ~1999) Surgical History Anesthesia (Resolved) History of carpal tunnel release (Resolved ~2002) History of knee replacement (Resolved) History of permanent cardiac pacemaker placement (Resolved 10/26/17) Family History Father History of heart disease Mother Diabetes mellitus History of heart disease Hypertension Hyperlipidemia Mental health problem Brother History of heart disease Sister Diabetes mellitus Social History household members: other Smoking Status: Former smoker second hand exposure: Yes (Sometimes, casnio) alcohol intake: current substance use type: does not use alcohol intake frequency: a few times a month Substance Use Type: does not use Exam Initial Vital Signs Initial Vital Signs: Vital Signs Temperature 98.3 F 02/16/19 11:57 Pulse Rate 91 H 02/16/19 11:57 Respiratory Rate 15 02/16/19 11:57 Blood Pressure 192/72 H 02/16/19 11:57 Pulse Oximetry 97 02/16/19 11:57 Const General: cooperative and well developed Nutritional Appearance: well nourished Orientation: alert, awake, oriented x3 and not confused HENND Head: normocephalic and atraumatic Ears: external ears normal Nose: external nose normal and No nasal discharge Face and sinus: face symmetric and No dry mucous membranes Mouth: oral mucosae normal and moist mucous membranes Teeth and gingiva: dentition normal Eyes General: appearance normal, both eyes and all related structures Eyelids: eyelids normal Conjunctivae: conjunctivae normal Sclera: sclerae normal Pupils: PERRL EOM: EOM intact bilaterally Neck Neck: normal visual inspection, trachea midline, No lymphadenopathy, No midline deformity and No JVD Lymphatic: No lymphedema Chest Chest: normal inspection of the chest Resp Effort & Inspection: normal respiratory effort, able to speak in complete sentences, no respiratory distress and no use of accessory muscles Auscultation: clear to auscultation bilaterally, no rales, no rhonchi and no wheezes Cardio Rate: regular rate Rhythm: regular rhythm Heart Sounds: no click, no gallops, no murmurs and no rubs Pulses: normal peripheral pulses GI Inspection: non-distended Palpation: soft, no hepatosplenomegaly, No guarding, No pulsatile mass and No tender Auscultation: normal bowel sounds Rectal Exam: normal sphincter tone, hemorrhoids (One, without thrombosis) and No mass Other: There is a mild amount of grossly bloody residue around the patient's external anal area. No active bleeding noted. Back/Spine/Pelvis Back: No CVA tenderness Cervical Spine: cervical ROM normal and No pain with cervical ROM Thoracic/Lumbar Spine: thoracic and lumbar spine normal to inspection Skin General: no rashes or lesions noted, No jaundice and No petechiae Neuro General: alert, oriented x3, gait normal and no focal motor deficits Speech: speech normal Extrem General: full ROM, no clubbing, cyanosis or edema, no pedal edema and no calf tenderness Psych Appearance: well kempt Mental Status: mental status grossly normal Attitude: cooperative Thought Content: normal and suicidality Judgment: judgment good Course Course Course Narrative: I discussed with the patient and his friend the treatment for hemorrhoids. The patient has recently had a right shoulder surgery, and is unable to wipe himself properly. We have discussed ways of keeping the area clean so that the skin does not become macerated and bleed more. As far as the hemorrhoids themselves, I have discussed with the patient that if they are not troubling him too much, he can probably leave them alone. He may follow up with surgery at any time to discuss the options in further detail. We have discussed home management of the symptoms, as well as the usual indications for return. No workup is indicated at this time. MDM - GI Bleed Medical Records Attestation: I reviewed the patient's medical records. Discharge Plan Departure Patient Disposition: Home Clinical Impression: Acute lower GI bleeding Hemorrhoid Qualifiers: Hemorrhoid type: unspecified Qualified Code(s): K64.9 - Unspecified hemorrhoids Discharge Date/Time: 02/16/19 13:25 Instructions: DI for Hemorrhoids Activity Restrictions/Additional Instructions: Your bleeding is consistent with bleeding from a hemorrhoid, a swollen vein at the opening of your anus. In general, these will stop shortly after finishing a bowel movement and getting from the toilet. Using the steroid infused hemorrhoid ointment or suppositories is helpful in decreasing inflammation that causes the hemorrhoids to continue to be enlarged. Also, keeping your stools as soft as possible will help prevent the enlargement of hemorrhoids. If you are having a lot of pain, or if you are having ongoing issues with bleeding, even follow up with the surgeons to discuss the banding procedure, in which the problematic veins are blockade with surgical clips. At this time, there is no evidence that he has lost a significant amount of blood, and the bleeding from your hemorrhoids has stopped. Prescriptions: No Action (DME) blood-glucose meter [Blood Glucose Monitoring] kit See Dose Instructions .ROUTE .MEDSUPPLY Qty: 1 RF: 0 (DME) Horicon Freestyle lite test strips Qty: 1 RF: 0 insulin glargine 100 unit/mL (3 mL) insulin pen 26 unit Sub-Q DAILY Qty: 15 RF: 5 (DME) pen needle, diabetic [Comfort EZ Pen Lefors] 31 gauge x 3/16 needle See Rx Instructions .ROUTE .MEDSUPPLY Qty: 100 RF: 0 metformin 1,000 mg tablet 1,000 mg PO BID Qty: 180 RF: 1 naproxen 500 mg tablet 500 mg PO BID PRN (Reason: pain) Qty: 60 RF: 5 metoprolol succinate 25 mg tablet extended release 24 hr 25 mg PO DAILY Qty: 90 RF: 0 simvastatin 20 mg tablet 20 mg PO QPM Qty: 90 RF: 0 lisinopril 40 mg tablet 40 mg PO DAILY Qty: 90 RF: 0 amlodipine 10 mg tablet 10 mg PO DAILY Qty: 90 RF: 1 loratadine 10 mg tablet 10 mg PO DAILY Qty: 90 RF: 3 aspirin 81 mg tablet,delayed release (DR/EC) 81 mg PO DAILY RF: 0 tamsulosin 0.4 mg capsule 1 tab PO DAILY RF: 0 triamcinolone acetonide 0.025 % cream 1 applic Topical BID PRN (Reason: unknown) RF: 0 One-A-Day Men's 50 Plus 400-20-370 mcg Tablet 1 tab PO DAILY RF: 0 mometasone 1 applic otic (ear) DIRECTED RF: 0 acetaminophen 325 mg Tablet 975 mg PO TID 30 Days Qty: 270 RF: 0 aspirin 81 mg Tablet,Delayed Release (Dr/Ec) 81 mg PO BID 42 Days Qty: 84 RF: 0 oxycodone 5 mg Tablet 5 mg PO Q3HR PRN (Reason: Pain, Moderate (4-6)) Qty: 40 RF: 0 Referrals: [facility] [Provider Group] Shayy De Oliveira DO [Primary Care Provider] -
== END 2019-02-16 13:25 | disposition home or self-care (01) ==
PROVIDERS: Emergency Provider Emergency Medicine; PCP Family Medicine
DX: K92.2 Gastrointestinal hemorrhage, unspecified (principal); K64.9 Unspecified hemorrhoids; E11.69 Type 2 diabetes mellitus with other specified complication
CPT/HCPCS: 99282

== ENCOUNTER → 2019-02-18 08:47 | Outpatient (CLI) | payer MEDICARE, OTHER, SELFPAY ==
[2019-01-14 14:11] VITALS: BMI 46.0
[2019-02-18 11:28] LABS: Microalbumi Creatinin Ratio Ur 388.4 ug/mg CR (<30); Microalbumin Urine Random 26.8 mg/dL (0-1.6)
== END ==
PROVIDERS: Family Provider Family Medicine; PCP Family Medicine; Visit Provider Student in an Organized Health Care Education/Training Program
DX: E11.9 Type 2 diabetes mellitus without complications (principal); R80.9 Proteinuria, unspecified; Z79.4 Long term (current) use of insulin
CPT/HCPCS: 82043; 82570

== ENCOUNTER → 2019-07-11 09:59 | Outpatient (CLI) | payer MEDICARE, OTHER, SELFPAY ==
[2019-01-14 14:11] VITALS: BMI 46.0
[2019-07-11 12:42] LABS: BUN Creatinine Ratio 20.9 (6-22); Blood Urea Nitrogen 18 mg/dL (9-20); Calcium 9.4 mg/dL (8.4-10.2); Carbon Dioxide 27 mmol/L (22-32); Chloride 103 mmol/L (98-107); Estimated Glomerular Filt Rate > 60.0 mL/min (>60); Glucose 165 mg/dL (80-110); HEMOLYSIS < 15 (0-50); Potassium 4.7 mmol/L (3.4-5.1); Sodium 140 mmol/L (137-145)
[2019-07-11 13:20] LABS: Hemoglobin A1C% w Est Avg Glu 7.4 % (4.0-6.0)
== END ==
PROVIDERS: Referring Provider Student in an Organized Health Care Education/Training Program; Visit Provider Student in an Organized Health Care Education/Training Program
DX: E11.9 Type 2 diabetes mellitus without complications (principal); Z79.4 Long term (current) use of insulin; I10 Essential (primary) hypertension
CPT/HCPCS: 36415; 80048; 83036

== ENCOUNTER → 2019-08-19 09:59 | Outpatient (CLI) | payer MEDICARE, OTHER, SELFPAY ==
[2019-01-14 14:11] VITALS: BMI 46.0
[2019-08-19 12:25] LABS: BUN Creatinine Ratio 20.8 (6-22); Blood Urea Nitrogen 21 mg/dL (9-20); Calcium 9.3 mg/dL (8.4-10.2); Carbon Dioxide 29 mmol/L (22-32); Chloride 97 mmol/L (98-107); Estimated Glomerular Filt Rate > 60.0 mL/min (>60); Glucose 181 mg/dL (80-110); HEMOLYSIS 18 (0-50); Potassium 4.8 mmol/L (3.4-5.1); Sodium 135 mmol/L (137-145)
== END ==
PROVIDERS: PCP Student in an Organized Health Care Education/Training Program; Referring Provider Internal Medicine Cardiovascular Disease; Visit Provider Internal Medicine Cardiovascular Disease
DX: I10 Essential (primary) hypertension (principal); I44.30 Unspecified atrioventricular block
CPT/HCPCS: 36415; 80048

== ENCOUNTER → 2019-11-14 08:41 | Outpatient (CLI) | payer MEDICARE, OTHER, SELFPAY ==
[2019-01-14 14:11] VITALS: BMI 46.0
[2019-11-14 09:21] LABS: Hemoglobin A1C% w Est Avg Glu 5.8 % (4.0-6.0)
[2019-11-14 09:27] LABS: BUN Creatinine Ratio 24.5 (6-22); Blood Urea Nitrogen 36 mg/dL (9-20); Estimated Glomerular Filt Rate 47.4 mL/min (>60)
[2019-11-14 09:55] LABS: TSH w/ Reflex to FT4 2.43 uIU/mL (0.47-4.68)
[2019-11-14 10:00] LABS: Creatinine Urine Random 55.8 mg/dL
[2019-11-14 10:03] LABS: Microalbumi Creatinin Ratio Ur 44.8 ug/mg CR (<30); Microalbumin Urine Random 2.5 mg/dL (0-1.6)
== END ==
PROVIDERS: PCP Student in an Organized Health Care Education/Training Program; Referring Provider Student in an Organized Health Care Education/Training Program; Visit Provider Student in an Organized Health Care Education/Training Program
DX: E11.8 Type 2 diabetes mellitus with unspecified complications (principal); Z79.4 Long term (current) use of insulin; E11.21 Type 2 diabetes mellitus with diabetic nephropathy; I10 Essential (primary) hypertension; R63.5 Abnormal weight gain
CPT/HCPCS: 36415; 82043; 82306; 82565; 82570; 83036; 84443; 84520

== ENCOUNTER → 2020-01-12 09:17 | Outpatient (CLI) | payer MEDICARE, OTHER, SELFPAY ==
[2019-01-14 14:11] VITALS: BMI 46.0
[2020-01-12 09:36] LABS: RBC Urine None Seen (0-5/HPF)
[2020-01-12 10:13] LABS: Add Manual Diff / Slide Review NO; Basophils Absolute Auto 0 /uL (0-100); Basophils Percent Auto 0.6 % (0-2); Eosinophils Absolute Auto 400 /uL (0-450); Eosinophils Percent Auto 5.4 % (2-4); Hematocrit 38.3 % (41-53); Hemoglobin 13.1 g/dL (13.5-17.5); Lymphocytes Absolute Auto 2200 /uL (1100-4500); Lymphocytes Percent Auto 34.6 % (25-40); Mean Corpuscular HGB Conc 34.2 % (30-36); Mean Corpuscular Volume 90.6 fL (80-100); Monocytes Absolute Auto 600 /uL (0-900); Monocytes Percent Auto 9.4 % (3-14); Neutrophils Absolute Auto 3200 /uL (1500-7000); Platelet Count 143 X10^3/uL (150-400); Red Blood Cell Count 4.23 X10^6/uL (4.5-5.9); White Blood Cell Count 6.5 X10^3/uL (4.5-11.0)
[2020-01-12 10:34] LABS: Albumin 4.8 g/dL (3.5-5.0); BUN Creatinine Ratio 19.3 (6-22); Blood Urea Nitrogen 28 mg/dL (9-20); Calcium 9.4 mg/dL (8.4-10.2); Carbon Dioxide 30 mmol/L (22-32); Chloride 101 mmol/L (98-107); Estimated Glomerular Filt Rate 48.1 mL/min (>60); Glucose 171 mg/dL (80-110); HEMOLYSIS < 15 (0-50); Phosphorous 3.7 mg/dL (2.3-3.7); Potassium 4.7 mmol/L (3.4-5.1); Sodium 141 mmol/L (137-145)
[2020-01-12 10:43] LABS: Appearance Urine UA CLEAR; Bilirubin Urine UA NEGATIVE (NEGATIVE); Color Urine UA YELLOW; Glucose Urine UA NEGATIVE (Negative); Ketones Urine UA NEGATIVE (NEGATIVE); Leukocyte Esterase Urine UA NEGATIVE (NEGATIVE); Nitrite Urine UA NEGATIVE (Negative); Occult Blood Urine UA NEGATIVE (Negative); Protein Urine UA NEGATIVE (Negative); Urobilinogen Urine UA 0.2 E.U./dL (0.2)
[2020-01-12 10:57] LABS: WBC Urine 0-1/HPF (0-5/HPF)
[2020-01-12 10:58] LABS: Bacteria Urine Occasional (0-1); Culture Indicated Urine Cult Not Indicated
== END ==
PROVIDERS: PCP Student in an Organized Health Care Education/Training Program; Referring Provider Internal Medicine Nephrology; Visit Provider Internal Medicine Nephrology
DX: N17.9 Acute kidney failure, unspecified (principal)
CPT/HCPCS: 36415; 80069; 81001; 85025

== ENCOUNTER → 2020-02-16 08:58 | Outpatient (CLI) | payer MEDICARE, OTHER, SELFPAY ==
[2019-01-14 14:11] VITALS: BMI 46.0
[2020-02-16 09:48] LABS: BUN Creatinine Ratio 18.7 (6-22); Blood Urea Nitrogen 25 mg/dL (9-20); Calcium 9.6 mg/dL (8.4-10.2); Carbon Dioxide 27 mmol/L (22-32); Chloride 102 mmol/L (98-107); Estimated Glomerular Filt Rate 52.7 mL/min (>60); Glucose 171 mg/dL (80-110); HEMOLYSIS < 15 (0-50); Potassium 4.8 mmol/L (3.4-5.1); Sodium 138 mmol/L (137-145)
== END ==
PROVIDERS: PCP Student in an Organized Health Care Education/Training Program; Referring Provider Internal Medicine Nephrology; Visit Provider Internal Medicine Nephrology
DX: N17.9 Acute kidney failure, unspecified (principal)
CPT/HCPCS: 36415; 80048

== ENCOUNTER → 2020-04-05 11:32 | Outpatient (CLI) | payer MEDICARE, OTHER, SELFPAY ==
[2019-01-14 14:11] VITALS: BMI 46.0
[2020-04-05 12:01] LABS: Bacteria Urine None Seen
[2020-04-05 13:28] LABS: Albumin 4.8 g/dL (3.5-5.0); BUN Creatinine Ratio 15.5 (6-22); Blood Urea Nitrogen 22 mg/dL (9-20); Calcium 9.7 mg/dL (8.4-10.2); Carbon Dioxide 28 mmol/L (22-32); Chloride 101 mmol/L (98-107); Estimated Glomerular Filt Rate 49.3 mL/min (>60); Glucose 155 mg/dL (80-110); HEMOLYSIS < 15 (0-50); Phosphorous 3.8 mg/dL (2.3-3.7); Potassium 4.6 mmol/L (3.4-5.1); Sodium 139 mmol/L (137-145)
[2020-04-05 15:29] LABS: Appearance Urine UA CLEAR; Bilirubin Urine UA NEGATIVE (NEGATIVE); Color Urine UA YELLOW; Glucose Urine UA NEGATIVE (Negative); Ketones Urine UA NEGATIVE (NEGATIVE); Leukocyte Esterase Urine UA NEGATIVE (NEGATIVE); Nitrite Urine UA NEGATIVE (Negative); Occult Blood Urine UA NEGATIVE (Negative); Protein Urine UA TRACE (Negative); Urobilinogen Urine UA 0.2 E.U./dL (0.2)
[2020-04-05 15:40] LABS: RBC Urine 0-1/HPF (0-5/HPF); Squamous Epithelial Cell Urine None Seen (0-5/HPF); WBC Urine 0-1/HPF (0-5/HPF)
[2020-04-05 15:41] LABS: Culture Indicated Urine Cult Not Indicated; Hyaline Casts Urine 5-10/LPF
[2020-04-06 17:08] LABS: Microalbumin Urine Random 14.6 mg/dL (0-1.6)
[2020-04-06 17:14] LABS: Creatinine Urine Random 172.5 mg/dL; Microalbumi Creatinin Ratio Ur 84.6 ug/mg CR (<30)
== END ==
PROVIDERS: PCP Student in an Organized Health Care Education/Training Program; Referring Provider Student in an Organized Health Care Education/Training Program; Visit Provider Internal Medicine Nephrology
DX: N17.9 Acute kidney failure, unspecified (principal)
CPT/HCPCS: 36415; 80069; 81001; 82043; 82570

== ENCOUNTER → 2020-04-29 10:49 | Outpatient (CLI) | payer MEDICARE, OTHER, SELFPAY ==
[2019-01-14 14:11] VITALS: BMI 46.0
[2020-04-29 12:23] LABS: Hemoglobin A1C% w Est Avg Glu 6.6 % (4.0-6.0)
== END ==
PROVIDERS: PCP Student in an Organized Health Care Education/Training Program; Referring Provider Student in an Organized Health Care Education/Training Program; Visit Provider Student in an Organized Health Care Education/Training Program
DX: E11.8 Type 2 diabetes mellitus with unspecified complications (principal); Z79.4 Long term (current) use of insulin
CPT/HCPCS: 36415; 83036

== ENCOUNTER → 2020-05-04 08:52 | Outpatient (CLI) | payer MEDICARE, OTHER, SELFPAY ==
[2019-01-14 14:11] VITALS: BMI 46.0
--- NOTE | 2020-05-04 08:54 | DI.US.S_ITS ---
PROCEDURE: US ABD AORTA ANEURYSM SCREEN INDICATIONS: SCREEN TECHNIQUE: Real time scanning was performed of the aorta and iliac arteries, with image documentation. COMPARISON: None. FINDINGS: Aorta: Proximal aortic diameter measures 2.4 cm. Mid-aorta measures 2.1 cm. Distal aortic diameter is 2 cm. Iliac arteries: Right common iliac artery measures 1.4 cm. Left common iliac artery measures 1.1 cm. IMPRESSION: Negative for aneurysm. Dictated by: Celestine Santana M.D. on 05/04/2020 at 8:55 Approved by: Celestine Santana M.D. on 05/04/2020 at 8:55
== END ==
PROVIDERS: PCP Student in an Organized Health Care Education/Training Program; Referring Provider Student in an Organized Health Care Education/Training Program; Visit Provider Student in an Organized Health Care Education/Training Program
DX: Z13.6 Encounter for screening for cardiovascular disorders (principal); Z87.891 Personal history of nicotine dependence
CPT/HCPCS: 76706

== ENCOUNTER → 2020-07-30 09:05 | Outpatient (CLI) | payer MEDICARE, OTHER, SELFPAY ==
[2019-01-14 14:11] VITALS: BMI 46.0
--- NOTE | 2020-07-30 | DI.US.S_ITS ---
PROCEDURE: US RENAL COMPLETE INDICATIONS: Chronic kidney disease, stage 3 unspecified TECHNIQUE: Real-time scanning was performed of the kidneys and bladder, with image documentation. COMPARISON: None. FINDINGS: Kidneys: Kidneys are normal in size. Right kidney measures 11.4 cm long; left kidney measures 13.4 cm long. Right renal cortical thickness is 2.6 cm; left renal cortical thickness is 2.7 cm. Renal cortical echotexture is grossly echogenic although suboptimal evaluation given body habitus. No hydronephrosis or nephrolithiasis. No suspicious solid mass lesions. Bladder: Pre-void bladder volume is 203 mL. Post-void residual is 46 mL. Pre-void images demonstrate no intraluminal masses or stones. On pre-void images, neither of the ureteral jets are noted with color Doppler interrogation. (Of note, ureteral jets may not be detectable in up to 25% of cases due to insufficient differences in specific gravity between ureteral and bladder urine). Miscellaneous: No free pelvic fluid. IMPRESSION: 46 mL postvoid residual. No hydronephrosis Dictated by: Raphael Pathak M.D. on 07/30/2020 at 11:06 Approved by: Raphael Pathak M.D. on 07/30/2020 at 11:08
== END ==
PROVIDERS: PCP Student in an Organized Health Care Education/Training Program; Referring Provider Internal Medicine Nephrology; Visit Provider Internal Medicine Nephrology
DX: N18.30 Chronic kidney disease, stage 3 unspecified (principal)
CPT/HCPCS: 76770

== ENCOUNTER → 2020-08-11 10:10 | Outpatient (CLI) | payer MEDICARE, OTHER, SELFPAY ==
[2019-01-14 14:11] VITALS: BMI 46.0
[2020-08-11 11:42] LABS: BUN Creatinine Ratio 17.4 (6-22); Blood Urea Nitrogen 23 mg/dL (9-20); Estimated Glomerular Filt Rate 53.5 mL/min (>60)
[2020-08-11 11:45] LABS: Hemoglobin A1C% w Est Avg Glu 6.9 % (4.0-6.0)
== END ==
PROVIDERS: PCP Student in an Organized Health Care Education/Training Program; Referring Provider Student in an Organized Health Care Education/Training Program; Visit Provider Student in an Organized Health Care Education/Training Program
DX: E11.8 Type 2 diabetes mellitus with unspecified complications (principal); N17.9 Acute kidney failure, unspecified; Z79.4 Long term (current) use of insulin
CPT/HCPCS: 36415; 82565; 83036; 84520

== ENCOUNTER → 2021-01-18 11:26 | Outpatient (CLI) | payer MEDICARE, OTHER, SELFPAY ==
[2019-01-14 14:11] VITALS: BMI 46.0
[2021-01-18 13:08] LABS: Hemoglobin A1C% w Est Avg Glu 7.8 % (4.0-6.0)
[2021-01-18 13:17] LABS: Blood Urea Nitrogen 19 mg/dL (9-20); C-Reactive Protein Quant 0.6 mg/dL (<1.0); Estimated Glomerular Filt Rate 51.7 mL/min (>60)
[2021-01-18 13:35] LABS: TSH w/ Reflex to FT4 1.78 uIU/mL (0.47-4.68)
[2021-01-19 18:07] LABS: Tissue Transglutaminase IgA <2 U/mL (0-3); Tissue Transglutaminase IgG 8 U/mL (0-5)
== END ==
PROVIDERS: PCP Student in an Organized Health Care Education/Training Program; Referring Provider Student in an Organized Health Care Education/Training Program; Visit Provider Student in an Organized Health Care Education/Training Program
DX: E11.8 Type 2 diabetes mellitus with unspecified complications (principal); K52.9 Noninfective gastroenteritis and colitis, unspecified; N18.31 Chronic kidney disease, stage 3a; Z79.4 Long term (current) use of insulin
CPT/HCPCS: 36415; 82565; 83036; 83516; 84443; 84520; 86140

== ENCOUNTER → 2021-01-19 10:43 | Outpatient (CLI) | payer MEDICARE, OTHER, SELFPAY ==
[2019-01-14 14:11] VITALS: BMI 46.0
[2021-01-19 12:59] LABS: Clostridium Difficile Tox PCR Negative for C. diff (Negative)
== END ==
PROVIDERS: PCP Student in an Organized Health Care Education/Training Program; Referring Provider Student in an Organized Health Care Education/Training Program; Visit Provider Student in an Organized Health Care Education/Training Program
DX: K52.9 Noninfective gastroenteritis and colitis, unspecified (principal)
CPT/HCPCS: 87045; 87493; 87899

== ENCOUNTER → 2021-02-21 09:32 | Outpatient (CLI) | payer MEDICARE, OTHER, SELFPAY ==
[2019-01-14 14:11] VITALS: BMI 46.0
[2021-02-21 12:14] LABS: Alanine Aminotransferase 42 IU/L (<50); Albumin 4.5 g/dL (3.5-5.0); Albumin Globulin Ratio 1.6 (1.0-2.8); Alkaline Phosphatase 57 U/L (38-126); Aspartate Aminotransferase 61 IU/L (17-59); Bilirubin Total 0.5 mg/dL (0.2-1.3); Globulin 2.9 g/dL (1.7-4.1); HEMOLYSIS < 15 (0-50); Total Protein 7.4 g/dL (6.3-8.2)
[2021-02-21 13:46] LABS: Add Manual Diff / Slide Review NO; Basophils Absolute Auto 0 /uL (0-100); Eosinophils Absolute Auto 300 /uL (0-450); Eosinophils Percent Auto 6.7 % (2-4); Hematocrit 38.9 % (41-53); Lymphocytes Absolute Auto 1200 /uL (1100-4500); Lymphocytes Percent Auto 26.8 % (25-40); Mean Corpuscular HGB Conc 33.5 % (30-36); Mean Corpuscular Hemoglobin 30.1 PG (26-34); Mean Corpuscular Volume 89.8 fL (80-100); Monocytes Absolute Auto 500 /uL (0-900); Monocytes Percent Auto 10.1 % (3-14); Neutrophils Absolute Auto 2500 /uL (1500-7000); Neutrophils Percent Auto 55.4 % (50-75); Platelet Count 133 X10^3/uL (150-400); Red Blood Cell Count 4.33 X10^6/uL (4.5-5.9); Red Cell Distribution Width 13.2 % (11.6-14.8); White Blood Cell Count 4.5 X10^3/uL (4.5-11.0)
[2021-02-21 13:47] LABS: Bilirubin Unconjugated 0.4 mg/dL (0.0-1.1)
== END ==
PROVIDERS: PCP Student in an Organized Health Care Education/Training Program; Referring Provider Internal Medicine Nephrology; Visit Provider Internal Medicine Nephrology
DX: N18.31 Chronic kidney disease, stage 3a (principal)
CPT/HCPCS: 36415; 80076; 85025

== ENCOUNTER → 2021-04-22 07:49 | Outpatient (CLI) | payer MEDICARE, OTHER, SELFPAY ==
[2019-01-14 14:11] VITALS: BMI 46.0
[2021-04-22 09:04] LABS: Hemoglobin A1C% w Est Avg Glu 10.8 % (4.0-6.0)
[2021-04-22 09:14] LABS: BUN Creatinine Ratio 16.2 (6-22); Blood Urea Nitrogen 21 mg/dL (9-20); Estimated Glomerular Filt Rate 54.4 mL/min (>60)
== END ==
PROVIDERS: PCP Student in an Organized Health Care Education/Training Program; Referring Provider Student in an Organized Health Care Education/Training Program; Visit Provider Student in an Organized Health Care Education/Training Program
DX: Z79.4 Long term (current) use of insulin (principal); E11.8 Type 2 diabetes mellitus with unspecified complications; N18.31 Chronic kidney disease, stage 3a
CPT/HCPCS: 36415; 82565; 83036; 84520

== ENCOUNTER → 2021-05-26 08:24 | Outpatient (CLI) | payer MEDICARE, OTHER, SELFPAY ==
[2019-01-14 14:11] VITALS: BMI 46.0
--- NOTE | 2021-05-31 16:48 | DIAB.INIT ---
Initial Diabetes Education Assessment Name: Rolando Dumas Date: 05/26/21 Time: 9-10a Dx: Type II Diabetes Provider: Jolie Preferred Learning Style: ryan Marshall presents today for initial diabetes visit. States he has had DM for 20 years. +FH of DM with mother and sister. Reports weight gain over the last year, which he attributes to diet-- especially around the holidays. His HgA1c has significantly increased. Most recent HgA1c was 10.8%. Prior in 12/2020 his HgA1c was 7.8%. He attributes this to the holidays, however never before has his HgA1c been above 7.8% despite holiday eating. Seems it was around this time that Metformin may have been d/c'd, which he thinks was due to kidney function. Provider notes indicate potential issue with diarrhea. No GFR documented <45. He does see a medical billing instructor in August. BG may have increased after changing medications. Perhaps need for increase in insulin. Again has experienced weight gain of almost 20# this year. Also, potential just for progression of DM as a contributing factor. Endorses frequent urination, q 30 min during the day and q hour at night. No dental exam >6 mo. Does not check feet. Does not get flu vaccine. BP usually 140/75, has been elevated last few days around 150/80. Endorses very little vegetable intake. Diet recall indicates mostly low to moderate carb meals. Will evaluate further next visit. 3-4 eating occurrences per day. Feels that Dm is very overwhelming due to changing and freq elevated BG. 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 Self-Monitoring Blood Glucose: FBG elevated daily. Readings frequently 250-400 mg/dL. No meter today for review. Diabetes Medications: Lantus 30u HS Novolog correction (usually 11-20u TID reported) Rx: 7u + SSI (2:50pt above 150) Pertinent Labs: 10.8% HgA1c Past Medical History: (Last Updated 05/01/21 @ 20:23 by Curtis Dave MD) BPH (benign prostatic hyperplasia) Carpal tunnel syndrome (~2014) Diabetes (~1999) Hemorrhoid (~1989) History of carpal tunnel release (~2002) History of knee replacement Both knees, 2004, 2017 History of [place] (myocardial infarction) History of permanent cardiac pacemaker placement (10/26/17) detention (current) use of insulin Pacemaker (10/26/17) Recurrent sinusitis (~1970) Rheumatoid arthritis (~2015) Shoulder pain (~2018) Sleep apnea (~2000) Intervention: This participant was very receptive. Provided appropriate educational handouts. Discussed the following topics: Completed intake assessment. Discussed barriers to care. HgA1c changes and goal Self-monitoring, how often, and when to check. Suggested checking at different times to evaluate meals Plate Method, how to add veggies General recommended servings for carbohydrates at meals and snacks Role of physical activity and following safe guidelines Medication management and usual insulin titration regimen Created SMART goals for patient self-care and success. Goals: Contact Dr. Dave for appointment Increase Lantus by titration schedule Add vegetables to meals/snacks Follow-up: ARTEMIO MACHADO follow-up in 1 week phone call and 2 weeks for a visit. Much of our appointment was spent establishing rapport. We did discuss nutrition in brief, and we reviewed insulin quite a bit. He would certainly benefit from insulin adjustments given hyperglycemia. I encouraged him to call his provider's office and discussed a potential plan for insulin. Will call him in one week and 1:1 f/u in two weeks. This [facility] plans to contact his provider as well. Zenaida Wu RDN, [facility] Certified Diabetes Care and Director Of Patient Safety P: [phone] Thank you for this referral
== END ==
PROVIDERS: PCP Student in an Organized Health Care Education/Training Program; Referring Provider Student in an Organized Health Care Education/Training Program; Visit Provider Student in an Organized Health Care Education/Training Program
DX: E11.9 Type 2 diabetes mellitus without complications (principal)
CPT/HCPCS: G0108

== ENCOUNTER → 2021-06-15 09:54 | Outpatient (CLI) | payer MEDICARE, OTHER, SELFPAY ==
[2019-01-14 14:11] VITALS: BMI 46.0
--- NOTE | 2021-06-16 17:06 | DIAB.FU ---
Follow-up Diabetes Education Assessment Name: Rolando Dumas Date: 06/15/21 Time: 1035-11a Dx: Type II Diabetes Rolando presents for follow-up regarding T2DM. Has not titrated Lantus up as discussed last visit. PCP on board with titration schedule 2u q 2-[address]/[employer] communications. He did increase to 35u and states it doesn't work!. He is open to trying to increase again after discussing the importance of being on enough insulin to bring FBG down <150 mg/dL, to start. Has increased veggie intake with airfryer cauliflower, and other non starchy veg. Endorses mostly pro and veg meals. Rolando reports high stress with feeling angry during driving with slow drivers idiots on the road. States his BP is in range at home and elevated at PCP visits. May be due to stress prior to visit. States people ask him why he is grumpy. Reports 's in 2010, mother's in 2011, another family member in 2012 and then his dog . States this impacted him greatly, understandably. Today he shares [employer] recipe and fishing photos. Still working on rapport. Physical Activity: PT, yard work Self-Monitoring Blood Glucose: FBG reported 290-314mg/dL. Diabetes Medications: Lantus 35u HS Novolog correction Rx: 7u + SSI (2:50pt above 150) Pertinent Labs: 10.8% HgA1c Past Medical History: (Last Updated 05/01/21 @ 20:23 by Curtis Dave MD) BPH (benign prostatic hyperplasia) Carpal tunnel syndrome (~2014) Diabetes (~1999) Hemorrhoid (~1989) History of carpal tunnel release (~2002) History of knee replacement Both knees, 2004, 2017 History of [place] (myocardial infarction) History of permanent cardiac pacemaker placement (10/26/17) penitentiary (current) use of insulin Pacemaker (10/26/17) Recurrent sinusitis (~1969) Rheumatoid arthritis (~2014) Shoulder pain (~2017) Sleep apnea (~1999) Intervention: Provided appropriate educational handouts. Discussed the following topics: Recent blood sugar results and trends Impact of stress on HTN Medication management, titration of Lantus for BG <150 Review of general nutrition recommendations and current intake Created SMART goals for patient self-care and success. Goals: Contact Dr. Dave for appointment- met Increase Lantus by titration schedule, 2u q 2-3 days until <150 FBG- in progress Add vegetables to meals/snacks- met Increase Lantus to 40u tonight- new Follow-up: ARTEMIO MACHADO follow-up in 2-4 weeks Zenaida Wu RDN, [facility] Certified Diabetes Care and Lead Investigator P: [phone] Thank you for this referral
== END ==
PROVIDERS: PCP Student in an Organized Health Care Education/Training Program; Referring Provider Student in an Organized Health Care Education/Training Program; Visit Provider Student in an Organized Health Care Education/Training Program
DX: E11.9 Type 2 diabetes mellitus without complications (principal)
CPT/HCPCS: G0108

== ENCOUNTER 2021-07-18 23:46 | Inpatient (IN) | payer MEDICARE, OTHER, SELFPAY ==
[2019-01-14 14:11] VITALS: BMI 46.0
[2021-07-18 23:54] VITALS: BP 139/72; PULSE 105; RESP 24; TEMP 37.2; O2SAT 97; BMI 42.7
--- NOTE | 2021-07-18 23:59 | PC.NURSE ---
grapefruit size area to mid back that is hard, red, and hot to the touch
[2021-07-19] VITALS (28 sets, daily range): BP systolic 80–145; BP diastolic 42–94; PULSE 64–96; RESP 15–24; TEMP 36.4–38.3; O2SAT 88–99; BMI 42.7
--- NOTE | 2021-07-19 | PATH_ITS ---
[facility] Accession Number: [id number] . 01 Material submitted: . back - MID BACK SKIN TISSUE . 01 Diagnosis: Mid Back, Excisions: Consistent with changes in the vicinity of a previously ruptured keratinous cyst; see comment. MRV 07/25/2021 1210 Local . 01 Comment: Sections demonstrate mixed dermal inflammation with keratin debris and focal squamous epithelial lining at the deep aspect of the excision within the deep dermis/subcutaneous tissue. In addition, there is a separate fragment of keratin debris with fibroconnective tissue showing dense mixed neutrophilic and chronic inflammation. The overall findings are most suggestive of the surface of a deep keratinous cyst (such as an epidermal inclusion cyst) with evidence of prior rupture. Clinical correlation is suggested. . 01 Electronically signed: . Jann Varela MD, Dermatopathologist NPI- [id number] . 01 Gross description: . The specimen is received in formalin, labeled mid back skin tissue, and consists of two unoriented skin excisions measuring 1.4 x 1.0 cm, excised to a depth of 2.2 cm, and 2.3 x 1.3 cm, excised to a depth of 1.8 cm, and an aggregate of yusuf to white purulent soft tissue measuring 1.3 x 1.0 x 0.9 cm in aggregate. The larger skin excision is inked black and the smaller skin excision is inked blue. The skin surfaces are rico-yusuf and appear sloughed, and no lesions or masses are identified at the skin surface. Sectioning the skin excisions reveals rico to red-brown cut surfaces, with no grossly identifiable lesions or masses. The specimen is entirely submitted as follows: . A1-A4: Larger skin excision, sequentially submitted. A5-A6: Smaller skin excision, sequentially submitted. A7: Purulent soft tissue fragments. ([id number]) /MRV 07/21/2021 1039 Local . 01 Pathologist provided ICD-10: L72.0 . 01 CPT . 066088 Specimen Comment: A courtesy copy of this report has been sent to [phone] Performed at: 01 [facility] [address] [place] [address], [place], [place] [id number] MD Josh Rosa MD Phone: [phone]
--- NOTE | 2021-07-19 00:23 | ED.SKABFB ---
HPI - Skin/Abscess/Foreign Bdy General Chief complaint: Skin/Abscess/Foreign Body Stated complaint: CONTUSION ON BACK Time Seen by Provider: 07/19/21 00:14 Source: patient Mode of arrival: Ambulatory History of Present Illness HPI narrative: 70-year-old male with history of insulin-dependent diabetes, pacemaker, coronary artery disease presenting today with what he thinks is a contusion on his back. He denies any fall. He says it has grown in size and has been there over the last 2 weeks. He denies any fever. He currently is denying any chest pain or palpitations. He says he is unable to go to sleep because he cannot lie on his back. He denies any numbness tingling or weakness in his extremities. Related Data Home Medications Medication Instructions Recorded Confirmed [id number] acid-vit 1 tab PO DAILY 01/21/18 06/23/21 K-lycop 400 mcg-20 mcg-370 mcg tablet (One-A-Day Men's 50 Plus) aspirin 81 mg tablet,delayed 81 mg PO DAILY 02/15/19 06/23/21 release insulin aspart U-100 100 unit/mL 1 sliding scale dose SUBCUT TID ml 05/02/21 06/23/21 (3 mL) subcutaneous pen Previous Rx's Medication Instructions Recorded hydrochlorothiazide 25 mg tablet 25 mg PO DAILY #90 tab 08/16/20 loratadine 10 mg tablet 10 mg PO DAILY #90 tab 08/24/20 amlodipine 10 mg tablet 10 mg PO DAILY #90 tab 02/09/21 lisinopril 40 mg tablet 40 mg PO DAILY #90 tab 02/09/21 insulin aspart U-100 100 unit/mL See Rx Instructions SUBCUT QAC #15 04/29/21 (3 mL) subcutaneous pen ml MDD 36 insulin glargine 100 unit/mL (3 25 unit (0.25 mL) SUB-Q .QHS #15 ml 04/29/21 mL) subcutaneous pen pen needle, diabetic 31 gauge x #400 ea 04/29/2106/08 (Comfort EZ Pen [place]) metoprolol succinate 50 mg 50 mg PO DAILY #90 tab 05/23/21 tablet,extended release 24 hr [place] Freestyle lite test strips #250 ea 05/30/21 simvastatin 20 mg tablet 20 mg PO QPM #90 tab 05/30/21 tamsulosin 0.4 mg capsule 0.4 mg PO DAILY #90 cap 05/30/21 Allergies Allergy/AdvReac Type Severity Reaction Status Date / Time iodine Allergy Unknown Verified 06/23/21 09:14 shellfish derived Allergy Verified 06/23/21 09:14 Review of Systems Review of Systems Narrative: GENERAL: Denies chills, fatigue, malaise, fever, sweats, travel HEENT: Denies sinus pain, ear pain, sore throat, difficulty swallowing, neck pain RESPIRATORY: Denies dyspnea, cough, wheezing, hemoptysis, sputum. CARDIOVASCULAR: Denies chest pain, palpitations, orthopnea, edema GASTROINTESTINAL: Denies nausea, vomiting, abdominal pain, diarrhea, constipation, melena. : Denies dysuria, frequency, incontinence, hematuria, urinary retention, flank pain. MUSCULOSKELETAL: Denies weakness, joint pain, or bony pain SKIN: See HPI NEUROLOGIC: Denies weakness, dizziness, headache, numbness, change in speech, confusion PSYCHIATRIC: No concerning psychosocial issues. 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 Pacemaker (10/26/17) Recurrent sinusitis (~1969) Rheumatoid arthritis (~2014) Shoulder pain (~2017) Sleep apnea (~1999) Surgical History Anesthesia History of carpal tunnel release (~2002) History of knee replacement History of permanent cardiac pacemaker placement (10/26/17) Family History Father History of heart disease Mother Diabetes mellitus History of heart disease Hypertension Hyperlipidemia Mental health problem Brother History of heart disease Sister Diabetes mellitus Social History household members: other Smoking Status: Former smoker second hand exposure: Yes (Sometimes, casnio) alcohol intake: current substance use type: does not use Smoking Status: Former smoker alcohol intake frequency: a few times a month Substance Use Type: does not use Exam Initial Vital Signs Initial Vital Signs: Vital Signs Temperature 99 F 07/18/21 23:54 Pulse Rate 105 H 07/18/21 23:54 Respiratory Rate 24 07/18/21 23:54 Blood Pressure 139/72 07/18/21 23:54 Pulse Oximetry 97 07/18/21 23:54 GENERAL: Alert 70-year-old maleand in no acute distress. HEENT: Head atraumatic,EOMI, pupils reactive, face symmetric, moist mucous membranes CARDIOVASCULAR: Regular rate and rhythm without murmurs, rubs or gallops. RESPIRATORY: Breath sounds equal bilaterally, no wheezes rales or rhonchi. ABDOMEN: Soft, nontender. Normoactive bowel sounds all 4 quadrants. No guarding or rebound. EXTREMITIES: Normal range of motion, no clubbing or edema. Neurovascularly intact NEUROLOGICAL: Alert and oriented x4.Normal gait and speech. SKIN: Large abscess 11 cm x 10 cm over the thoracic spine erythematous warm to touch tender to touch fluctuation, no drainage Course Orders Ordered: ED Orders 07/19/21 00:36 CT thoracic spine w con Stat EKG-12 Lead Stat 07/19/21 00:55 CBC Auto Diff [Complete Blood Count AUTO DIFF] Stat CMP [Comprehensive Metabolic Panel] Stat Lactate (Lactic Acid) Stat Procalcitonin Stat 07/19/21 01:08 Blood Culture Stat Acetaminophen (Acetaminophen 325 Mg Tablet) 650 mg PO Q6HR PRN PRN Reason: pain Dextrose (Dextrose 50 % In Water 25 Gm/50 Ml Syringe) 25 gm IV PRN PRN PRN Reason: Hypoglycemia Heparin Sodium (Porcine) (Heparin 5,000 Unit/Ml Vial) 5,000 unit SUBCUT BID AGNIESZKA Hydromorphone HCl (Hydromorphone 0.5 Mg Inj) 0.5 mg IV Q4H PRN PRN Reason: Breakthrough pain only (8-10) Last Admin: 07/19/21 04:29 Dose: 0.5 mg Documented by: TAVNIR Dextrose/Sodium Chloride (Dextrose 5%-0.9% Ns) 1,000 mls @ 100 mls/hr IV CONT AGNIESZKA Last Admin: 07/19/21 04:33 Dose: 100 mls/hr Documented by: TANVIR Piperacillin Sod/Tazobactam (Sod 3.375 gm/ Sodium Chloride) 100 mls @ 25 mls/hr IV Q8H AGNIESZKA Vancomycin HCl/Dextrose (Vancomycin) 2,000 mg in 400 mls @ 200 mls/hr IV Q24H AGNIESZKA Insulin Glargine (Insulin Glargine 100 Unit/Ml 3ml Pen) 10 unit SUBCUT 0800 AGNIESZKA Insulin Human Lispro (Insulin Lispro 100 Unit/Ml 3ml Vial) 0 unit SUBCUT ACHS AGNIESZKA; Protocol Naloxone HCl (Naloxone 0.4 Mg/Ml Vial) 0.2 mg IV Q2MIN PRN PRN Reason: Opiate Reversal Ondansetron HCl (Ondansetron 4 Mg/2 Ml Inj) 4 mg IV Q8HR PRN PRN Reason: Nausea And Vomiting Oxycodone HCl (Oxycodone Ir 5 Mg Tablet) 5 mg PO Q4HR PRN PRN Reason: Pain, Moderate (4-6) Vancomycin HCl (Vancomycin Per Pharmacy) 1 request MISC NOW ONE Stop: 07/19/21 04:22 Discontinued Medications Vancomycin HCl/Dextrose (Vancomycin) 2,000 mg in 400 mls @ 200 mls/hr IV NOW ONE Stop: 07/19/21 04:41 Last Admin: 07/19/21 03:54 Dose: 200 mls/hr Documented by: COREY Piperacillin Sod/Tazobactam (Sod 4.5 gm/ Sodium Chloride) 100 mls @ 200 mls/hr IV NOW ONE Stop: 07/19/21 02:42 Last Infusion: 07/19/21 03:58 Dose: 0 mls/hr Documented by: Admin: 07/19/21 02:53 Dose: 200 mls/hr Documented by: COREY Morphine Sulfate (Morphine 4 Mg/Ml Inj) 4 mg IV NOW ONE Stop: 07/19/21 00:57 Last Admin: 07/19/21 01:18 Dose: 4 mg Documented by: COREY Vital Signs Vital signs: Vital Signs - 8 hr 07/18/21 23:54 Temperature 99 F Pulse Rate 105 H Respiratory Rate 24 Blood Pressure 139/72 Pulse Oximetry 97 MDM - Skin/Abscess/Foreign Bdy Lab Data Result diagrams: 07/19/21 00:55 07/19/21 00:55 Labs: Lab Results 07/19/21 07/19/21 07/19/21 Range/Units 00:55 00:55 00:55 WBC 15.9 H (4.5-11.0) X10^3/uL RBC 4.25 L (4.5-5.9) X10^6/uL Hgb 12.4 L (13.5-17.5) g/dL Hct 37.7 L (41-53) % MCV 88.7 (80-100) fL MCH 29.1 (26-34) PG MCHC 32.8 (30-36) % RDW 12.6 (11.6-14.8) % Plt Count 201 (150-400) X10^3/uL Neut % (Auto) 80.0 H (50-75) % Lymph % (Auto) 9.8 L (25-40) % [place] % (Auto) 9.0 (3-14) % Eos % (Auto) 0.7 L (2-4) % Baso % (Auto) 0.5 (0-2) % Neut # (Auto) 34265 H (2368-4275) /uL Lymph # (Auto) 1500 (1230-7935) /uL [place] # (Auto) 1400 H (0-900) /uL Eos # (Auto) 100 (0-450) /uL Baso # (Auto) 100 (0-100) /uL Sodium 130 L (137-145) mmol/L Potassium 4.4 (3.4-5.1) mmol/L Chloride 93 L (98-107) mmol/L Carbon Dioxide 26 (22-32) mmol/L BUN 35 H (9-20) mg/dL Creatinine 1.66 H (0.66-1.25) mg/dL Estimated GFR 44 L (>60) mL/min BUN/Creatinine Ratio 21.1 (6-22) Glucose 383 H (80-110) mg/dL Lactate 1.2 (0.7-2.1) mmol/L Calcium 8.8 (8.4-10.2) mg/dL Total Bilirubin 1.2 (0.2-1.3) mg/dL AST 31 (17-59) IU/L ALT 24 (<50) IU/L Alkaline Phosphatase 72 (38-126) U/L Total Protein 7.7 (6.3-8.2) g/dL Albumin 4.2 (3.5-5.0) g/dL Globulin 3.5 (1.7-4.1) g/dL Albumin/Globulin Ratio 1.2 (1.0-2.8) Procalcitonin (<0.5) ng/mL 07/19/21 Range/Units 00:55 WBC (4.5-11.0) X10^3/uL RBC (4.5-5.9) X10^6/uL Hgb (13.5-17.5) g/dL Hct (41-53) % MCV (80-100) fL MCH (26-34) PG MCHC (30-36) % RDW (11.6-14.8) % Plt Count (150-400) X10^3/uL Neut % (Auto) (50-75) % Lymph % (Auto) (25-40) % [place] % (Auto) (3-14) % Eos % (Auto) (2-4) % Baso % (Auto) (0-2) % Neut # (Auto) (4917-4628) /uL Lymph # (Auto) (0914-2302) /uL [place] # (Auto) (0-900) /uL Eos # (Auto) (0-450) /uL Baso # (Auto) (0-100) /uL Sodium (137-145) mmol/L Potassium (3.4-5.1) mmol/L Chloride (98-107) mmol/L Carbon Dioxide (22-32) mmol/L BUN (9-20) mg/dL Creatinine (0.66-1.25) mg/dL Estimated GFR (>60) mL/min BUN/Creatinine Ratio (6-22) Glucose (80-110) mg/dL Lactate (0.7-2.1) mmol/L Calcium (8.4-10.2) mg/dL Total Bilirubin (0.2-1.3) mg/dL AST (17-59) IU/L ALT (<50) IU/L Alkaline Phosphatase (38-126) U/L Total Protein (6.3-8.2) g/dL Albumin (3.5-5.0) g/dL Globulin (1.7-4.1) g/dL Albumin/Globulin Ratio (1.0-2.8) Procalcitonin 0.34 (<0.5) ng/mL Imaging Data ct thoracic: Radiologist's Impression: Preliminary report: Midline subcutaneous 9.4 x 3.7 x 12.9 cm ill-defined abscess posterior to approximately T6 through T11 vertebra ECG Data Interpretation: Paced rhythm rate 125 MDM Narrative Medical decision making narrative: Patient has a very large abscess on his back. Leukocytosis of almost 16. He is afebrile without an elevated lactic acid no sign of sepsis. He is multiple cor morbidities as well. Patient would likely benefit from OR drainage and washout. Patient is given vancomycin and Zosyn. Dr. Matamoros surgery updated on patient's symptoms and test results and agrees with or but recommends admission to hospitalist. , put him patient's symptoms and test results his except Discharge Plan Departure Patient Disposition: Admitted As Inpatient Clinical Impression: Abscess of skin Admit Date/Time: 07/19/21 03:46 Admit Provider: Maikel Mcmullen
--- NOTE | 2021-07-19 00:36 | DI.CT.S_ITS ---
PROCEDURE: CT THORACIC SPINE W CON INDICATIONS: large abcess TECHNIQUE: After the administration of intravenous Isovue contrast, 3 mm thick sections acquired through the levels of interest. Sagittal and coronal reformats were then constructed. For radiation dose reduction, the following was used: automated exposure control. COMPARISON: None. FINDINGS: Image quality: Excellent. Bones: No fracture or dislocation. There is degenerative disc disease in lower cervical spine and throughout the thoracic spine. Soft tissues: There is a large subcutaneous soft tissue mass with cavity and air collection posterior to the thoracic spine at the level from T5-C6 to T10-T11, measuring 10.4 cm AP, 14.5 cm transverse and 11.2 cm cephalocaudal. Mild cardiomegaly. There is a cardiac pacemaker. Hepatic steatosis. IMPRESSION: 1. A 10.4 x 14.5 by 11.2 cm subcutaneous soft tissue mass with central cavity and air collection posterior to the lower thoracic spine, most likely a large phlegmon/abscess. 2. Mild degenerative disc disease in the lower cervical spine and thoracic spine. No significant discrepancy with the tin plater radiology preliminary report. Dictated by: Indiana Byrd M.D. on 07/19/2021 at 8:06 Approved by: Indiana Byrd M.D. on 07/19/2021 at 8:11
[2021-07-19 01:10] LABS: Add Manual Diff / Slide Review NO; Basophils Absolute Auto 100 /uL (0-100); Basophils Percent Auto 0.5 % (0-2); Eosinophils Absolute Auto 100 /uL (0-450); Eosinophils Percent Auto 0.7 % (2-4); Hematocrit 37.7 % (41-53); Hemoglobin 12.4 g/dL (13.5-17.5); Lymphocytes Absolute Auto 1500 /uL (1100-4500); Lymphocytes Percent Auto 9.8 % (25-40); Mean Corpuscular HGB Conc 32.8 % (30-36); Mean Corpuscular Hemoglobin 29.1 PG (26-34); Mean Corpuscular Volume 88.7 fL (80-100); Monocytes Absolute Auto 1400 /uL (0-900); Neutrophils Absolute Auto 12700 /uL (1500-7000); Platelet Count 201 X10^3/uL (150-400); Red Blood Cell Count 4.25 X10^6/uL (4.5-5.9); Red Cell Distribution Width 12.6 % (11.6-14.8); White Blood Cell Count 15.9 X10^3/uL (4.5-11.0)
[2021-07-19] MEDS: MORPHINE 4 MG/ML INJ IV (01:18)
[2021-07-19 01:20] LABS: Lactate (Lactic Acid) 1.2 mmol/L (0.7-2.1)
[2021-07-19 01:21] LABS: Alanine Aminotransferase 24 IU/L (<50); Albumin 4.2 g/dL (3.5-5.0); Albumin Globulin Ratio 1.2 (1.0-2.8); Alkaline Phosphatase 72 U/L (38-126); Aspartate Aminotransferase 31 IU/L (17-59); BUN Creatinine Ratio 21.1 (6-22); Bilirubin Total 1.2 mg/dL (0.2-1.3); Blood Urea Nitrogen 35 mg/dL (9-20); Calcium 8.8 mg/dL (8.4-10.2); Carbon Dioxide 26 mmol/L (22-32); Chloride 93 mmol/L (98-107); Estimated Glomerular Filt Rate 44 mL/min (>60); Globulin 3.5 g/dL (1.7-4.1); Glucose 383 mg/dL (80-110); HEMOLYSIS < 15 (0-50); Potassium 4.4 mmol/L (3.4-5.1); Sodium 130 mmol/L (137-145); Total Protein 7.7 g/dL (6.3-8.2)
[2021-07-19 01:37] LABS: Procalcitonin 0.34 ng/mL (<0.5)
[2021-07-19] MEDS: PIPERACILLIN/TAZO 4.5 GM in SODIUM CHLORIDE 0.9% 100 ML 200 ML IV (02:53)
[2021-07-19] MEDS: VANCOMYCIN 2,000 MG/400 ML PIGGYBACK 200 MG IV (03:54)
[2021-07-19 04:27] LABS: COVID19 -Nasal RAPID Negative (Negative)
[2021-07-19] MEDS: HYDROMORPHONE 0.5 MG INJ IV (04:29)
[2021-07-19] MEDS: DEXTROSE 5%-0.9% NS 1,000 ML 100 ML IV (04:33)
--- NOTE | 2021-07-19 04:55 | PC.ADMIT ---
[email or web address] Admission Note: Patient admitted from ED via wheelchair. Patient having difficulty catching breath after ambulating from wheelchair to bed, can only speak 4-5 words before having to stop and catch their breath. O2 97% on RA. Unable to complete med rec at this time as a result. The patient,Rolando Dumas,70 y/o, was given written information regarding hospital policies, unit procedures and contact persons. Patient's smoking status: Former smoker. Vital Signs - 8 hr 07/18/21 23:54 07/19/21 04:21 07/19/21 04:25 Temperature 99 F 98.4 F Pulse Rate 105 H 96 H 65 Respiratory Rate 24 22 18 Blood Pressure 139/72 136/80 145/72 H Pulse Oximetry 97 97
--- NOTE | 2021-07-19 05:56 | PM.HP.1 ---
History of Present Illness History of Present Illness Date Patient Seen: 07/19/21 Time Patient Seen: 05:30 Chief complaint: CONTUSION ON BACK Narrative: Mr. Dumas is a 70M with PMH CAD, s/p PPM, DM2 on insulin, ALISON, morbid obesity, CKD stage 3 who presents to the hospital with back pain. He notes an increasing painful swelling in the middle of his back. Denies any injury to the area. He notes the area has now grown red. He has no fevers or chills. The pain is significant enough that he can not lie on his back. He also notes he had a recent fall about a week ago, and has cracked ribs on his left. He is coughing from what he says is chronic sinusitis that causes coughing in the morning. In the ED workup was done, vitals notable for HR 100s, RR 20s, no fever. Labs notable for WBC 15.9, creatinine 1.66. Lactate 1.2. Procal 0.34. CT showed a 9.4x3.7x12.9 subcutaneous midline back abscess. He was ordered for vanco/zosyn. Surgery was consulted for consideration of I+D. He was admitted for further treatment. 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 Pacemaker (10/26/17) Recurrent sinusitis (~1969) Rheumatoid arthritis (~2014) Shoulder pain (~2017) Sleep apnea (~1999) Surgical History Anesthesia History of carpal tunnel release (~2002) History of knee replacement History of permanent cardiac pacemaker placement (10/26/17) Family & Social History Family History Father History of heart disease Mother Diabetes mellitus History of heart disease Hypertension Hyperlipidemia Mental health problem Brother History of heart disease Sister Diabetes mellitus Social History: household members other Safety & Behavioral: Feels Safe in Current Yes Environment Been Physically Hurt or No Threatened By a Person Tobacco & Substance use: Smoking Status Former smoker alcohol intake current alcohol intake frequency a few times a month Substance Use Type does not use Meds Home Medications and Allergies Home Medications Medication Instructions Recorded Confirmed Type cmkqovluwuxs-twj-zclwe acid-vit 1 tab PO DAILY 01/21/18 06/23/21 History K-lycop 400 mcg-20 mcg-370 mcg tablet (One-A-Day Men's 50 Plus) aspirin 81 mg tablet,delayed 81 mg PO DAILY 02/15/19 06/23/21 History release hydrochlorothiazide 25 mg tablet 25 mg PO DAILY #90 tab 08/16/20 06/23/21 Rx loratadine 10 mg tablet 10 mg PO DAILY #90 tab 08/24/20 06/23/21 Rx amlodipine 10 mg tablet 10 mg PO DAILY #90 tab 02/09/21 06/23/21 Rx lisinopril 40 mg tablet 40 mg PO DAILY #90 tab 02/09/21 06/23/21 Rx insulin aspart U-100 100 unit/mL See Rx Instructions SUBCUT QAC #15 04/29/21 06/23/21 Rx (3 mL) subcutaneous pen ml MDD 36 insulin glargine 100 unit/mL (3 25 unit (0.25 mL) SUB-Q .QHS #15 ml 04/29/21 06/23/21 Rx mL) subcutaneous pen pen needle, diabetic 31 gauge x #400 ea 04/29/21 06/23/21 Rx 3/16 (Comfort EZ Pen [place]) insulin aspart U-100 100 unit/mL 1 sliding scale dose SUBCUT TID ml 05/02/21 06/23/21 History (3 mL) subcutaneous pen metoprolol succinate 50 mg 50 mg PO DAILY #90 tab 05/23/21 06/23/21 Rx tablet,extended release 24 hr [place] Freestyle lite test strips #250 ea 05/30/21 06/23/21 Rx simvastatin 20 mg tablet 20 mg PO QPM #90 tab 05/30/21 06/23/21 Rx tamsulosin 0.4 mg capsule 0.4 mg PO DAILY #90 cap 05/30/21 06/23/21 Rx Allergies Allergy/AdvReac Type Severity Reaction Status Date / Time iodine Allergy Unknown Verified 06/23/21 09:14 shellfish derived Allergy Verified 06/23/21 09:14 Review of Systems Review of Systems Narrative: 14 systems reviewed and negative aside from what is noted in HPI Exam Vital Signs (past 8 hours): - 07/18/21 23:54 07/19/21 04:21 07/19/21 04:25 Temperature 99 F 98.4 F Pulse Rate 105 H 96 H 65 Respiratory Rate 24 22 18 Blood Pressure 139/72 136/80 145/72 H Pulse Oximetry 97 97 Oxygen Delivery Method Room Air Narrative Exam Narrative: GEN: no acute distress HEENT: moist mucous membranes, PERRL NECK: trachea midline, no JVD PULM: coughing, lungs clear bilaterally CV: regular rate and rhythm, no murmurs ABD: obese, soft, nontender, nondistended, no organomegaly EXT: warm and well perfused with no edema SKIN: back has large fluctuant tender area, central portion is erythematous and warm, no drainage Objective Labs Result Diagrams: 07/19/21 00:55 07/19/21 00:55 Labs: Laboratory Results - last 24 hr 07/19/21 07/19/21 07/19/21 00:55 00:55 00:55 WBC 15.9 H RBC 4.25 L Hgb 12.4 L Hct 37.7 L MCV 88.7 MCH 29.1 MCHC 32.8 RDW 12.6 Plt Count 201 Neut % (Auto) 80.0 H Lymph % (Auto) 9.8 L [place] % (Auto) 9.0 Eos % (Auto) 0.7 L Baso % (Auto) 0.5 Neut # (Auto) 59084 H Lymph # (Auto) 1500 [place] # (Auto) 1400 H Eos # (Auto) 100 Baso # (Auto) 100 Sodium 130 L Potassium 4.4 Chloride 93 L Carbon Dioxide 26 BUN 35 H Creatinine 1.66 H Estimated GFR 44 L BUN/Creatinine Ratio 21.1 Glucose 383 H Lactate 1.2 Calcium 8.8 Total Bilirubin 1.2 AST 31 ALT 24 Alkaline Phosphatase 72 Total Protein 7.7 Albumin 4.2 Globulin 3.5 Albumin/Globulin Ratio 1.2 Procalcitonin SARS-CoV-2 (PCR) 07/19/21 07/19/21 00:55 04:00 WBC RBC Hgb Hct MCV MCH MCHC RDW Plt Count Neut % (Auto) Lymph % (Auto) [place] % (Auto) Eos % (Auto) Baso % (Auto) Neut # (Auto) Lymph # (Auto) [place] # (Auto) Eos # (Auto) Baso # (Auto) Sodium Potassium Chloride Carbon Dioxide BUN Creatinine Estimated GFR BUN/Creatinine Ratio Glucose Lactate Calcium Total Bilirubin AST ALT Alkaline Phosphatase Total Protein Albumin Globulin Albumin/Globulin Ratio Procalcitonin 0.34 SARS-CoV-2 (PCR) Negative Assessment & Plan Assessment & Plan narrative: Mr. Dumas is a 70M with PMH CAD, ALISON, morbid obesity, CKD stage 3, DM2 who presents with large abscess on back. 1. Large abscess of back, acute -has poorly controlled DM, so will order broad abx with vanco/zosyn -follow up blood cultures -NPO -surgery consult to consider I+D 2. NEAL on CKD stage 3 -baseline creatinine 1.3, on admit 1.66 -CKD secondary to DM/HTN and acutely worsened due to infection -ordered for IVF -follow creatinine daily -hold lisinopril 3. Type 2 DM on insulin, with hyperglycemia -ordered for d5ns while npo -ordered for 10U glargine and insulin sliding scale while npo -adjust as needed for glucose levels 4. Morbid obesity -BMI 42.7 -likely to impact wound healing -encourage PCP follow up 5. BPH -continue tamsulosin 6. CAD s/p PPM -hold aspirin -continue metoprolol 7. HTN -hold anti-hypertensives, amlodipine, lisinopril, HCTZ for now 8. Rib pain -per patient has left sided broken ribs -ordered for pain control 9. Sinusitis -not improved after abx, likely chronic -ordered flonase CODE: Full Proxy: Raphael Matos, daughter I have utilized all available resources to reconcile the patient's home medications. Time Spent With Patient Critical Care time: I spent a total of [] minutes of critical care time on this patient's care today; this time is exclusive of procedural time. Quality MIPS - Admit I confirm the patient?s Advance Care Plan is present, Code status is documented, Surrogate decision maker is in patient?s record [If Yes, STOP here]: Yes
[2021-07-19] MEDS: OXYCODONE IR 5 MG TABLET PO (05:57)
[2021-07-19] MEDS: PIPERACILLIN/TAZO 3.375 GM in SODIUM CHLORIDE 0.9% 100 ML 25 ML IV ×3 (06:40→23:20)
[2021-07-19] MEDS: TAMSULOSIN 0.4 MG CAPSULE PO (09:10)
[2021-07-19] MEDS: INSULIN LISPRO 100 UNIT/ML 3ML VIAL SUBCUT ×4 (09:10→20:59)
[2021-07-19] MEDS: INSULIN GLARGINE 100 UNIT/ML 3ML PEN 10 UNIT SUBCUT (09:13)
[2021-07-19] MEDS: METOPROLOL ER 50 MG TABLET PO (09:22)
--- NOTE | 2021-07-19 12:25 | PC.NURSE ---
Patient taken to surgery on bed after voiding in urinal at bedside with assist.
[2021-07-19] MEDS: LACTATED RINGERS 1,000 ML 42 ML IV (12:47)
--- NOTE | 2021-07-19 13:05 | P.CONS_ITS ---
History of Present Illness Consult details Date Patient Seen: 07/19/21 Time Patient Seen: 13:05 Chief complaint: CONTUSION ON BACK Narrative: Rolando is a 70-year-old obese diabetic man who presented to the ER with tender swelling of his midback. Tenderness had been increasing for about a week. A CT was performed which showed a subcutaneous abscess containing gas and fluid. His mobility has been decreased recently due to his right hip condition. He also broke some ribs recently when he fell but the back swelling and tenderness pre dated the rib fractures. He was admitted to the hospital service and started on IV antibiotics. Meds Home Medications and Allergies Home Medications Medication Instructions Recorded Confirmed Type [id number] acid-vit 1 tab PO DAILY 01/21/18 06/23/21 History K-lycop 400 mcg-20 mcg-370 mcg tablet (One-A-Day Men's 50 Plus) aspirin 81 mg tablet,delayed 81 mg PO DAILY 02/15/19 07/19/21 History release hydrochlorothiazide 25 mg tablet 25 mg PO DAILY #90 tab 08/16/20 06/23/21 Rx loratadine 10 mg tablet 10 mg PO DAILY #90 tab 08/24/20 06/23/21 Rx amlodipine 10 mg tablet 10 mg PO DAILY #90 tab 02/09/21 06/23/21 Rx lisinopril 40 mg tablet 40 mg PO DAILY #90 tab 02/09/21 06/23/21 Rx insulin aspart U-100 100 unit/mL See Rx Instructions SUBCUT QAC #15 04/29/21 06/23/21 Rx (3 mL) subcutaneous pen ml MDD 36 insulin glargine 100 unit/mL (3 25 unit (0.25 mL) SUB-Q .QHS #15 ml 04/29/21 06/23/21 Rx mL) subcutaneous pen pen needle, diabetic 31 gauge x #400 ea 04/29/21 06/23/21 Rx 3/16 (Comfort EZ Pen [place]) insulin aspart U-100 100 unit/mL 1 sliding scale dose SUBCUT TID ml 05/02/21 06/23/21 History (3 mL) subcutaneous pen metoprolol succinate 50 mg 50 mg PO DAILY #90 tab 05/23/21 07/19/21 Rx tablet,extended release 24 hr [place] Freestyle lite test strips #250 ea 05/30/21 06/23/21 Rx simvastatin 20 mg tablet 20 mg PO QPM #90 tab 05/30/21 07/19/21 Rx tamsulosin 0.4 mg capsule 0.4 mg PO DAILY #90 cap 05/30/21 07/19/21 Rx Allergies Allergy/AdvReac Type Severity Reaction Status Date / Time iodine Allergy Unknown Verified 06/23/21 09:14 shellfish derived Allergy Verified 06/23/21 09:14 Exam Vital Signs (past 8 hours): - 07/19/21 07:00 07/19/21 09:40 07/19/21 11:40 Temperature 97.9 F 99.5 F Pulse Rate 87 80 Respiratory Rate 18 18 Blood Pressure 102/51 L 139/57 L Pulse Oximetry 92 92 92 07/19/21 12:50 Temperature 98.9 F Pulse Rate 87 Respiratory Rate 24 Blood Pressure 124/70 Pulse Oximetry 96 Oxygen Delivery Method Room Air Oxygen Flow Rate 0 Narrative Exam Narrative: Obese and with limited mobility There is a 7-8 cm area of induration and discoloration of the skin in the mid back. There is no drainage or open wound Objective Labs Result Diagrams: 07/19/21 00:55 07/19/21 00:55 Labs: Laboratory Results - last 24 hr 07/19/21 07/19/21 07/19/21 00:55 00:55 00:55 WBC 15.9 H RBC 4.25 L Hgb 12.4 L Hct 37.7 L MCV 88.7 MCH 29.1 MCHC 32.8 RDW 12.6 Plt Count 201 Neut % (Auto) 80.0 H Lymph % (Auto) 9.8 L Emanuel % (Auto) 9.0 Eos % (Auto) 0.7 L Baso % (Auto) 0.5 Neut # (Auto) 51547 H Lymph # (Auto) 1500 Emanuel # (Auto) 1400 H Eos # (Auto) 100 Baso # (Auto) 100 Sodium 130 L Potassium 4.4 Chloride 93 L Carbon Dioxide 26 BUN 35 H Creatinine 1.66 H Estimated GFR 44 L BUN/Creatinine Ratio 21.1 Glucose 383 H Lactate 1.2 Calcium 8.8 Total Bilirubin 1.2 AST 31 ALT 24 Alkaline Phosphatase 72 Total Protein 7.7 Albumin 4.2 Globulin 3.5 Albumin/Globulin Ratio 1.2 Procalcitonin SARS-CoV-2 (PCR) 07/19/21 07/19/21 00:55 04:00 WBC RBC Hgb Hct MCV MCH MCHC RDW Plt Count Neut % (Auto) Lymph % (Auto) Emanuel % (Auto) Eos % (Auto) Baso % (Auto) Neut # (Auto) Lymph # (Auto) Emanuel # (Auto) Eos # (Auto) Baso # (Auto) Sodium Potassium Chloride Carbon Dioxide BUN Creatinine Estimated GFR BUN/Creatinine Ratio Glucose Lactate Calcium Total Bilirubin AST ALT Alkaline Phosphatase Total Protein Albumin Globulin Albumin/Globulin Ratio Procalcitonin 0.34 SARS-CoV-2 (PCR) Negative [facility] Medical History BPH (benign prostatic hyperplasia) Carpal tunnel syndrome (~2014) Diabetes (~1999) Hemorrhoid (~1989) History of [place] (myocardial infarction) [facility] (current) use of insulin Pacemaker (10/26/17) Recurrent sinusitis (~1969) Rheumatoid arthritis (~2014) Shoulder pain (~2017) Sleep apnea (~1999) Surgical History Anesthesia History of carpal tunnel release (~2002) History of knee replacement History of permanent cardiac pacemaker placement (10/26/17) Family History Father History of heart disease Mother Diabetes mellitus History of heart disease Hypertension Hyperlipidemia Mental health problem Brother History of heart disease Sister Diabetes mellitus Social History household members: none Tobacco & Substance Use Smoking Status: Former smoker second hand exposure: Yes (Sometimes, casnio) alcohol intake: current substance use type: does not use Assessment & Plan Assessment and plan (1) Abscess of skin: Status: Acute Plan We reviewed the risks and benefits of incision and drainage in the operating room. Specifically, I told him he will have a chronic wound if he is unable to offload the area while it heals. He would like to proceed. Will plan to take deep tissue cultures and packed the wound open. He understands and wishes to proceed. Time Spent With Patient Critical Care time: I spent a total of [] minutes of critical care time on this patient's care today; this time is exclusive of procedural time.
--- NOTE | 2021-07-19 14:09 | SUR.OPER ---
Right Lateral on a isbell bag, head on pillow, gel axillary roll in place, bottom leg bent with gel pad under knee to foot, upper leg straight and supported with pillows. Upper arm supported by pillows and secured over bottom arm to padded arm board. Safety belt at hip, tape over blanket lower legs and upper torso.
[2021-07-19] MEDS: BUPIVACAINE 0.5% (PF) 30 ML, EPINEPHrine 0.15 MG INJ (14:17)
--- NOTE | 2021-07-19 14:33 | PM.OP.1 ---
Operative Date/Time/Diagnoses Date of procedure: 07/19/21 Time of procedure: 14:33 Pre-op diagnosis: Back abscess Post-op diagnosis: same Procedure & Clinicians Procedure: Incision and drainage of back abscess Same procedure as scheduled: Yes Surgeon: Konrad Matamoros Anesthesia Type: General Operative Notes Procedure in detail: The patient was on antibiotics. The patient was brought to the operating room general anesthesia was induced via LMA. The patient was then positioned in the right lateral decubitus position with the left side up. Beanbag was used to secure him. Back was prepped and draped in the usual fashion and a time-out was performed. We excised a segment of necrotic appearing skin that was roughly 3 sq inches. There was purulent necrotic fluid in the abscess cavity. Cultures were taken from the deep portion of the abscess cavity. There was also some some whitish cheesy substance suggesting this was an infected sebaceous cyst. Some of the deep tissue and overlying skin was sent to path and some to microbiology. The wound was then packed with dry gauze. EBL: 10 mL Post-operative Condition: stable Disposition: PACU
--- NOTE | 2021-07-19 15:17 | CM.DANOTE ---
DCP/Assessment: Reviewed chart. Patient is a 70yr old male admitted to [facility] with abscess on his back. PCP listed is Dr. Dave. Payor is 1)Medicare 2)[employer]. Met with patient this AM explained CM/SW role. Patient reports being frustrated because he cannot eat or drink. Patient undergoing I&D of abscess on his back this afternoon. Patient reports that he [place] alone in [place] Patient currently in the process of selling his house and moving to [place]. Patient does have daughter whom resides in [place]. At this time d/c needs are unknown. Anticipate patient will need IV abx for the remainder of his hospitalization and most likely dressing changes. Notified patient that CM team would be back by to see him after surgery to assist with any d/c planning needs. P: Anticipate home when stable. Patient may need home health for dressing changes or IV abx? Too soon to tell. GUNNAR Discharge Planning/Care Management CM Discharge Assessment Start: 07/19/21 15:12 Freq: Status: Active Protocol: Document 07/19/21 15:13 KJ (Rec: 07/19/21 15:17 [facility] [id number]) Discharge Planning Assessment Assigned Inclusion Paraeducator STAR Sharif Contact Information Raphael Matos (daughter) ph# Advance Directives? Yes Advance Directives on File No History Provided By Patient,Medical Record Prior Living Arrangements House Household Members none Type of transporation used prior to Drives own vehicle admit Independent with ADL's Yes Is patient alert and oriented? Yes Caregiver for Another No Comment Patient denies using any DME Patient/Family Preference OP PT Therapy Comment Unable to determine yet. Discharge Plan Home Transportation Arrangement Family? Referrals Initiated Other Additional Comment Patient having I&D today of abscess on his back. Unclear at this time if he will have d /c planning needs. Whiteboard Updated in Patient Room with Yes name and ext. # of Inclusion Paraeducator Review Status In Process Next Review Type Continued Stay Review
--- NOTE | 2021-07-19 15:40 | PC.NURSE ---
Addendum entered by Windy Pabon R.N. 07/19/21 16:47: LS with wheezes bilaterally, HRR, BT active x 4, abdomen rotund, nontender to palpation. Patient denies pain. SCDs on bilaterally. Original Note: Pt returns to floor from surgery, VSS, back dressing CDI. SpO2 99% on 3L O2. Patient alert and oriented, jokes with staff, no complaints at this time.
[2021-07-19] MEDS: SODIUM CHLORIDE 0.9% 250 ML 21 ML IV (16:33)
--- NOTE | 2021-07-19 18:34 | PC.NURSE ---
Addendum entered by Windy Pabon R.N. 07/19/21 18:36: pharmacy ph [phone]. Original Note: Called [facility] pharmacy in [place] to verify patient's meds and try to obtain a complete med list with dosages, etc, but pharm closes at 1600. Will pass info on to oncoming nurse.
[2021-07-19] MEDS: SODIUM CHLORIDE 0.9% FLUSH 10 ML IV (21:00)
[2021-07-19] MEDS: ACETAMINOPHEN 325 MG TABLET 650 MG PO (21:00)
[2021-07-20] VITALS (7 sets, daily range): BP systolic 128–135; BP diastolic 53–64; PULSE 73–78; RESP 16–20; TEMP 36.7–37.1; O2SAT 92–98
[2021-07-20] MEDS: VANCOMYCIN 1,500 MG/300 ML PIGGYBACK 200 MG IV (03:48)
[2021-07-20] MEDS: PIPERACILLIN/TAZO 3.375 GM in SODIUM CHLORIDE 0.9% 100 ML 25 ML IV ×3 (06:32→22:44)
[2021-07-20 07:38] LABS: Hematocrit 33.5 % (41-53); Hemoglobin 11.3 g/dL (13.5-17.5); Mean Corpuscular HGB Conc 33.7 % (30-36); Mean Corpuscular Hemoglobin 29.9 PG (26-34); Mean Corpuscular Volume 88.7 fL (80-100); Platelet Count 190 X10^3/uL (150-400); Red Blood Cell Count 3.78 X10^6/uL (4.5-5.9)
[2021-07-20 07:40] LABS: BUN Creatinine Ratio 21.9 (6-22); Blood Urea Nitrogen 43 mg/dL (9-20); Calcium 7.8 mg/dL (8.4-10.2); Carbon Dioxide 28 mmol/L (22-32); Chloride 96 mmol/L (98-107); Estimated Glomerular Filt Rate 36 mL/min (>60); Glucose 313 mg/dL (80-110); HEMOLYSIS < 15 (0-50); Potassium 4.4 mmol/L (3.4-5.1); Sodium 132 mmol/L (137-145)
[2021-07-20 07:41] LABS: Add Manual Diff / Slide Review YES
[2021-07-20 07:55] LABS: Neutrophils Absolute Manual 8470 /uL (3000-5900); Total Cells Counted 100
[2021-07-20 07:56] LABS: RBC Morphology Norm
--- NOTE | 2021-07-20 08:52 | P.PN_ITS ---
Subjective Subjective Date Patient Seen: 07/20/21 Time Patient Seen: 08:52 Interval history: Feels better today. Tolerating diet. No significant pain to report from his back wound. Exam Vital Signs (past 8 hours): - 07/20/21 03:42 Temperature 98.3 F Pulse Rate 73 Respiratory Rate 16 Blood Pressure 135/64 Pulse Oximetry 98 Oxygen Delivery Method Room Air Oxygen Flow Rate 0 Narrative Exam Narrative: Dressing removed. Hemostatic wound. No further purulent exudate from the wound. Objective Labs Result Diagrams: 07/20/21 07:12 07/20/21 07:12 Labs: Laboratory Results - last 24 hr 07/20/21 07/20/21 07:12 07:12 WBC 11.0 RBC 3.78 L Hgb 11.3 L Hct 33.5 L MCV 88.7 MCH 29.9 MCHC 33.7 RDW 13.0 Plt Count 190 Neut % (Auto) Not Reportable Lymph % (Auto) Not Reportable [place] % (Auto) Not Reportable Eos % (Auto) Not Reportable Baso % (Auto) Not Reportable Lymph # (Auto) Not Reportable [place] # (Auto) Not Reportable Baso # (Auto) Not Reportable Total Counted 100 Seg Neutrophils % 77.0 H Lymphocytes % (Manual) 11.0 L Monocytes % (Manual) 3.0 Eosinophils % (Manual) 9.0 H Neutrophils # (Manual) 8470 H RBC Morphology Norm Sodium 132 L Potassium 4.4 Chloride 96 L Carbon Dioxide 28 BUN 43 H Creatinine 1.96 H Estimated GFR 36 L BUN/Creatinine Ratio 21.9 Glucose 313 H Calcium 7.8 L PFSH Medical History BPH (benign prostatic hyperplasia) Carpal tunnel syndrome (~2014) Diabetes (~1999) Hemorrhoid (~1989) History of [place] (myocardial infarction) 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 Pacemaker (10/26/17) Recurrent sinusitis (~1969) Rheumatoid arthritis (~2014) Shoulder pain (~2017) Sleep apnea (~1999) Surgical History Anesthesia History of carpal tunnel release (~2002) History of knee replacement History of permanent cardiac pacemaker placement (10/26/17) Family History Father History of heart disease Mother Diabetes mellitus History of heart disease Hypertension Hyperlipidemia Mental health problem Brother History of heart disease Sister Diabetes mellitus Social History household members: none Smoking Status: Former smoker second hand exposure: Yes (Sometimes, casnio) alcohol intake: current substance use type: does not use Assessment & Plan Assessment and plan (1) Postoperative examination: Status: Acute Plan Dressing changed. Recommend once or twice daily dry dressing changes. Use about half of a 4 x 4 to loosely pack the wound followed by several more layers of gauze on the outside for absorption. He will need some assistance with the d ressing changes because of the location. Will order home health consult and hopefully somebody at home can eventually learn how to do the dressing changes. Expect wound to fill in in 2-3 weeks. Time Spent With Patient Critical Care time: I spent a total of [] minutes of critical care time on this patient's care today; this time is exclusive of procedural time.
[2021-07-20] MEDS: METOPROLOL ER 50 MG TABLET PO (09:57)
[2021-07-20] MEDS: ASPIRIN EC 81 MG TABLET PO (09:58)
[2021-07-20] MEDS: INSULIN LISPRO 100 UNIT/ML 3ML VIAL SUBCUT ×4 (09:58→20:42)
[2021-07-20] MEDS: TAMSULOSIN 0.4 MG CAPSULE PO (09:58)
[2021-07-20] MEDS: INSULIN GLARGINE 100 UNIT/ML 3ML PEN 10 UNIT SUBCUT ×2 (09:59→14:24)
[2021-07-20] MEDS: HEPARIN 5,000 UNIT/ML VIAL 5000 UNIT SUBCUT ×2 (10:07→20:42)
[2021-07-20] MEDS: SODIUM CHLORIDE 0.9% FLUSH 10 ML IV ×2 (10:08→20:44)
[2021-07-20] MEDS: CALCIUM GLUCONATE 4.65 MEQ in SODIUM CHLORIDE 0.9% 50 ML 180 ML IV (10:46)
--- NOTE | 2021-07-20 11:32 | CM.DPC ---
DCP Cont: Per Surgeon, changed pt's packing and dressing today and could be stable for d/c today or tomorrow and will need some packing and dressing changes for a couple weeks post discharge. SW met bedside with pt along with Hospitalist and plan is for pt to d/c home tomorrow Thurs for one more day of IV-Abx and then d/c on orals. Pt confirms that his Dtr, who lives in [place], will transport him home at d/c and she will arrive bedside for teaching for packing/dressing changes with RN as pt plans to keep his airline flight to [place] with Dtr and her family on Sun and Dtr will be the one doing dressing changes since it is on pt's back and he cannot see it himself. GLORIA discussed HH but due to pt discharging Thurs and then leaving for [place] for 10 days on Sun and then when pt returns he is moving out of his house which is for sale and on the market and has offers already in place, HH would not really be an option in his current situation. Pt quite active and independent at baseline and denies any further needs at d/c and will alert his Dtr to plans of d/c in the morning and her to have teaching bedside. Plan: SW to follow closely for plan of d/c to home tomorrow via Dtr POV after bedside dressing change teaching. STAR [place]
--- NOTE | 2021-07-20 13:56 | PM.PN.1 ---
Subjective Subjective Interval history: Patient denies any acute complaints this morning. He reports being able to arrange to have a family member at home help him with wound dressing changes. Exam Vital Signs (past 8 hours): - 07/20/21 08:30 07/20/21 08:51 07/20/21 09:57 Temperature Pulse Rate 74 74 Respiratory Rate 16 Blood Pressure 135/64 Pulse Oximetry 96 92 07/20/21 10:20 Temperature 98.0 F Pulse Rate 76 Respiratory Rate 18 Blood Pressure Pulse Oximetry 92 Oxygen Delivery Method Room Air Oxygen Flow Rate 0 Const Other: Patient sitting up in chair comfortably upon my entering the room, in no apparent acute distress, large body habitus noted Eyes Other: No scleral icterus appreciated Resp Other: Lungs clear to auscultation bilaterally Cardio Other: RRR, S1 and S2 heart sounds normal, with no extra heart sounds or murmurs appreciated GI Other: Soft, non-distended, non-tender, bowel sounds present Back/Spine/Pelvis Other: 4X4 dressing applied over affected area, without drainage or soaking of the dressing, and with regression of surrounding erythema Skin Other: No grossly abnormal skin lesions appreciated Extrem Other: Palpable dorsalis pedis pulses bilaterally Objective Labs Result Diagrams: 07/20/21 07:12 07/20/21 07:12 Labs: Laboratory Results - last 24 hr 07/20/21 07/20/21 07:12 07:12 WBC 11.0 RBC 3.78 L Hgb 11.3 L Hct 33.5 L MCV 88.7 MCH 29.9 MCHC 33.7 RDW 13.0 Plt Count 190 Neut % (Auto) Not Reportable Lymph % (Auto) Not Reportable [place] % (Auto) Not Reportable Eos % (Auto) Not Reportable Baso % (Auto) Not Reportable Lymph # (Auto) Not Reportable [place] # (Auto) Not Reportable Baso # (Auto) Not Reportable Total Counted 100 Seg Neutrophils % 77.0 H Lymphocytes % (Manual) 11.0 L Monocytes % (Manual) 3.0 Eosinophils % (Manual) 9.0 H Neutrophils # (Manual) 8470 H RBC Morphology Norm Sodium 132 L Potassium 4.4 Chloride 96 L Carbon Dioxide 28 BUN 43 H Creatinine 1.96 H Estimated GFR 36 L BUN/Creatinine Ratio 21.9 Glucose 313 H Calcium 7.8 L PFSH Medical History BPH (benign prostatic hyperplasia) Carpal tunnel syndrome (~2014) Diabetes (~1999) Hemorrhoid (~1989) History of [place] (myocardial infarction) 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 Pacemaker (10/26/17) Recurrent sinusitis (~1969) Rheumatoid arthritis (~2014) Shoulder pain (~2017) Sleep apnea (~1999) Surgical History Anesthesia History of carpal tunnel release (~2002) History of knee replacement History of permanent cardiac pacemaker placement (10/26/17) Family History Father History of heart disease Mother Diabetes mellitus History of heart disease Hypertension Hyperlipidemia Mental health problem Brother History of heart disease Sister Diabetes mellitus Social History household members: none Smoking Status: Former smoker second hand exposure: Yes (Sometimes, casnio) alcohol intake: current substance use type: does not use Assessment & Plan Assessment & Plan narrative: Mr. Dumas is a 70M with PMH CAD, ALISON, morbid obesity, CKD stage 3, DM2 who presents with large abscess on back. 1. Large abscess of back, acute, status post I&D on July 19, 2021 - IV vancomycin and IV Zosyn on-board, from July 19 - Wound culture pending 2. NEAL on CKD stage 3 - Continue to follow Cr, hold home lisinopril for now 3. Type 2 DM on insulin, with hyperglycemia - A1c nearly 11%, likely contributing greatly to poor wound healing 4. Obesity, class 3, with BMI 42.7 - This is likely contributing greatly to poor wound healing, counseling provided 5. BPH - Continue home tamsulosin 6. CAD s/p PPM - Continue home Toprol 50 mg daily 7. HTN - Holding home anti-BP meds for now, as patient normotensive 8. Rib pain, stable, unchanged 9. Sinusitis - Flonase orderd CODE: Full Proxy: Raphael Matos, daughter I have utilized all available resources to obtain, update, or confirm the patient's home medications. Time Spent With Patient Critical Care time: I spent a total of [] minutes of critical care time on this patient's care today; this time is exclusive of procedural time. Quality MIPS - Admit I confirm the patient?s Advance Care Plan is present, Code status is documented, Surrogate decision maker is in patient?s record [If Yes, STOP here]: Yes
[2021-07-20] MEDS: ATORVASTATIN 20 MG TABLET 10 MG PO (17:01)
[2021-07-21 03:00] VITALS: BP 118/59; PULSE 74; RESP 16; TEMP 36.8; O2SAT 99
[2021-07-21] MEDS: VANCOMYCIN 1,500 MG/300 ML PIGGYBACK 200 MG IV (04:18)
[2021-07-21] MEDS: PIPERACILLIN/TAZO 3.375 GM in SODIUM CHLORIDE 0.9% 100 ML 25 ML IV (06:28)
[2021-07-21 07:00] VITALS: BP 140/58; PULSE 77; RESP 18; TEMP 36.3; O2SAT 94
[2021-07-21 07:45] VITALS: O2SAT 96
[2021-07-21] MEDS: TAMSULOSIN 0.4 MG CAPSULE PO (08:40)
[2021-07-21] MEDS: HEPARIN 5,000 UNIT/ML VIAL 5000 UNIT SUBCUT (08:40)
[2021-07-21] MEDS: ASPIRIN EC 81 MG TABLET PO (08:41)
[2021-07-21 08:42] VITALS: BP 140/58; PULSE 77
[2021-07-21] MEDS: INSULIN GLARGINE 100 UNIT/ML 3ML PEN 20 UNIT SUBCUT (08:42)
[2021-07-21] MEDS: METOPROLOL ER 50 MG TABLET PO (08:42)
[2021-07-21] MEDS: INSULIN LISPRO 100 UNIT/ML 3ML VIAL SUBCUT ×2 (08:44→11:49)
--- NOTE | 2021-07-21 11:04 | P.PN_ITS ---
Subjective Subjective Interval history: The patient reports feeling well this morning. He denies any active complaints. He reports his back feels a lot better after the I&D. He understands that he'll need several more days of abx. His daughter is at bedside learning how dress his wound by patient's RN. Exam Vital Signs (past 8 hours): - 07/21/21 07:00 07/21/21 07:45 07/21/21 08:42 Temperature 97.3 F L Pulse Rate 77 77 Respiratory Rate 18 Blood Pressure 140/58 L 140/58 L Pulse Oximetry 94 96 Oxygen Delivery Method Room Air Oxygen Flow Rate 0 Narrative Exam Narrative: Const Other: Patient sitting up in chair comfortably upon my entering the room, in no apparent acute distress, large body habitus noted Eyes Other: No scleral icterus appreciated Resp Other: Lungs clear to auscultation bilaterally Cardio Other: RRR, S1 and S2 heart sounds normal, with no extra heart sounds or murmurs appreciated GI Other: Soft, non-distended, non-tender, bowel sounds present Back/Spine/Pelvis Other: 4X4 dressing applied over affected area, with soak of slightly yellow purulence appreciated, and with regression of surrounding erythema Skin Other: No grossly abnormal skin lesions appreciated Extrem Other: Palpable dorsalis pedis pulses bilaterally Objective Labs Result Diagrams: 07/20/21 07:12 07/20/21 07:12 [facility] Medical History BPH (benign prostatic hyperplasia) Carpal tunnel syndrome (~2014) Diabetes (~1999) Hemorrhoid (~1989) History of [place] (myocardial infarction) 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 Pacemaker (10/26/17) Recurrent sinusitis (~1969) Rheumatoid arthritis (~2014) Shoulder pain (~2017) Sleep apnea (~1999) Surgical History Anesthesia History of carpal tunnel release (~2002) History of knee replacement History of permanent cardiac pacemaker placement (10/26/17) Family History Father History of heart disease Mother Diabetes mellitus History of heart disease Hypertension Hyperlipidemia Mental health problem Brother History of heart disease Sister Diabetes mellitus Social History household members: none Smoking Status: Former smoker second hand exposure: Yes (Sometimes, casnio) alcohol intake: current substance use type: does not use Assessment & Plan Assessment & Plan narrative: Mr. Dumas is a 70M with PMH CAD, ALISON, morbid obesity, CKD stage 3, DM2 who pres ents with large abscess on back. 1. Large abscess of back, acute, status post I&D on July 19, 2021 ?- IV vancomycin and IV Zosyn on-board, from July 19, inpatient ?- Will discharge on PO clindamycin 300 mg qid for 7 more days of abx tx 2. NEAL on CKD stage 3 ?- As CKD appears near baseline, pt can continue home lisinopril - Hold HCTZ as outpatient given degree of reduced GFR, until follow-up with PCP 3. Type 2 DM on insulin, with hyperglycemia ?- A1c nearly 11%, likely contributing greatly to poor wound healing 4. Obesity, class 3, with BMI 42.7 ?- This is likely contributing greatly to poor wound healing, counseling provided 5. BPH ?- Continue home tamsulosin 6. CAD s/p PPM ?- Continue home Toprol 50 mg daily 7. HTN ?- As above 8. Rib pain, stable, unchanged 9. Sinusitis ?- Flonase orderd Time Spent With Patient Critical Care time: I spent a total of [] minutes of critical care time on this patient's care today; this time is exclusive of procedural time.
--- NOTE | 2021-07-21 11:08 | PM.DS.1 ---
History of Present Illness History of Present Illness Chief complaint: CONTUSION ON BACK Narrative: Mr. Dumas is a 70M with PMH CAD, s/p PPM, DM2 on insulin, ALISON, morbid obesity, CKD stage 3 who presents to the hospital with back pain. He notes an increasing painful swelling in the middle of his back. Denies any injury to the area. He notes the area has now grown red. He has no fevers or chills. The pain is significant enough that he can not lie on his back. He also notes he had a recent fall about a week ago, and has cracked ribs on his left. He is coughing from what he says is chronic sinusitis that causes coughing in the morning. In the ED workup was done, vitals notable for HR 100s, RR 20s, no fever. Labs notable for WBC 15.9, creatinine 1.66. Lactate 1.2. Procal 0.34. CT showed a 9.4x3.7x12.9 subcutaneous midline back abscess. He was ordered for vanco/zosyn. Surgery was consulted for consideration of I+D. He was admitted for further treatment. Written by admitting provider. Discharge Providers Provider Date of admission: 07/19/21 03:46 Discharge Date: 07/21/21 Primary care physician: Curtis Dave MD Consults: 07/19/21 06:03 Consult to General Surgery Routine Comment: Consulting Provider: Konrad Matamoros Reason for consultation: abscess Has provider been notified: Yes 07/20/21 08:54 Consult to Home Health Routine Comment: Reason For Exam: open wound needs packing Discharge provider: Justine Evans MD Summary Hospital Course Discharge Diagnosis: Mr. Dumas is a 70M with PMH CAD, ALISON, morbid obesity, CKD stage 3, DM2 who presents with large abscess on back. 1. Large abscess of back, acute, status post I&D on July 19, 2021 ?- IV vancomycin and IV Zosyn on-board, from July 19, inpatient ?- Will discharge on PO clindamycin 300 mg qid for 7 more days of abx tx 2. NAEL on CKD stage 3 ?- As CKD appears near baseline, pt can continue home lisinopril ?- Hold HCTZ as outpatient given degree of reduced GFR, until follow-up with PCP 3. Type 2 DM on insulin, with hyperglycemia ?- A1c nearly 11%, likely contributing greatly to poor wound healing 4. Obesity, class 3, with BMI 42.7 ?- This is likely contributing greatly to poor wound healing, counseling provided 5. BPH ?- Continue home tamsulosin 6. CAD s/p PPM ?- Continue home Toprol 50 mg daily 7. HTN ?- As above 8. Rib pain, stable, unchanged 9. 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 Pacemaker (10/26/17) Recurrent sinusitis (~1969) Rheumatoid arthritis (~2014) Shoulder pain (~2017) Sleep apnea (~1999) Surgical History Anesthesia History of carpal tunnel release (~2002) History of knee replacement History of permanent cardiac pacemaker placement (10/26/17) Family History Father History of heart disease Mother Diabetes mellitus History of heart disease Hypertension Hyperlipidemia Mental health problem Brother History of heart disease Sister Diabetes mellitus Social History household members: none Smoking Status: Former smoker second hand exposure: Yes (Sometimes, casnio) alcohol intake: current substance use type: does not use Discharge Assessment & Plan Assessment and Plan Assessment: Mr. Dumas is a 70M with PMH CAD, ALISON, morbid obesity, CKD stage 3, DM2 who presents with large abscess on back. 1. Large abscess of back, acute, status post I&D on July 19, 2021 ?- IV vancomycin and IV Zosyn on-board, from July 19, inpatient ?- Will discharge on PO clindamycin 300 mg qid for 7 more days of abx tx 2. NEAL on CKD stage 3 ?- As CKD appears near baseline, pt can continue home lisinopril ?- Hold HCTZ as outpatient given degree of reduced GFR, until follow-up with PCP 3. Type 2 DM on insulin, with hyperglycemia ?- A1c nearly 11%, likely contributing greatly to poor wound healing 4. Obesity, class 3, with BMI 42.7 ?- This is likely contributing greatly to poor wound healing, counseling provided 5. BPH ?- Continue home tamsulosin 6. CAD s/p PPM ?- Continue home Toprol 50 mg daily 7. HTN ?- As above 8. Rib pain, stable, unchanged 9. Sinusitis ?- Flonase orderd Discharge Plan Discharge Plan Patient Disposition: Home Discharge orders & Medications Prescriptions: New clindamycin HCl 300 mg capsule 300 mg PO Q6H 7 Days Qty: 28 0RF Continued loratadine 10 mg tablet 10 mg PO DAILY Qty: 90 2RF lisinopril 40 mg tablet 40 mg PO DAILY Qty: 90 1RF amlodipine 10 mg tablet 10 mg PO DAILY Qty: 90 1RF metoprolol succinate 50 mg tablet extended release 24 hr 50 mg PO DAILY Qty: 90 3RF tamsulosin 0.4 mg capsule 0.4 mg PO DAILY Qty: 90 3RF simvastatin 20 mg tablet 20 mg PO QPM Qty: 90 3RF (DME) Echo Freestyle lite test strips 0 .Route .MEDSUPPLY Qty: 250 3RF Dose Instruction: As directed Rx Instructions: Test blood sugar levels twice daily aspirin 81 mg tablet,delayed release (DR/EC) 81 mg PO DAILY 0RF insulin glargine 100 unit/mL (3 mL) insulin pen 25 unit Sub-Q .QHS Qty: 15 5RF insulin aspart U-100 100 unit/mL (3 mL) insulin pen See Rx Instructions SUBCUT QAC MDD 36 Qty: 15 3RF Rx Instructions: 7 units plus sliding scale dose SUBCUT before meals; (DME) pen needle, diabetic [Comfort EZ Pen [place]] 31 gauge x 3/16 needle See Rx Instructions .ROUTE .MEDSUPPLY Qty: 400 3RF Rx Instructions: Use to test blood sugars 4 times a day insulin aspart U-100 100 unit/mL (3 mL) insulin pen 1 sliding scale dose SUBCUT TID 0RF Label Comments: Blood Glucose (mg/dL)Sliding Scale dose ? in addition to pre-meal dose Less than 70 Initiate HYPOglycemia Guidelines 70 ? 149 0 units 150 - 199 2 units 200 ? 249 4 units 250 ? 299 6 units 300 ? 349 8 units 350 - 399 10 units Over 400 12 units ? notify provider, and recheck blood sugar in 30 minutes. One-A-Day Men's 50 Plus 400-20-370 mcg Tablet 1 tab PO DAILY 0RF Discontinued hydrochlorothiazide 25 mg tablet 25 mg PO DAILY Qty: 90 2RF Follow up/Referrals: Curtis Dave MD [Primary Care Provider] - Visit Report/Discharge Packet Instructions: DI for Incision and Drainage, How to Use Antibiotics Wisely, [facility]: Wound Care Discharge Data Primary Care Provider: Curtis Dave
== END 2021-07-21 12:04 | disposition home or self-care (01) | DRG 603 ==
LOC: ED 07-19 00:14 → AC 07-19 03:47
PROVIDERS: Surgery; Admitting Provider Internal Medicine; Emergency Provider Emergency Medicine; PCP Student in an Organized Health Care Education/Training Program; Referring Provider Emergency Medicine; Visit Provider Internal Medicine
PROC: 0HB6XZZ Excision of Back Skin, External Approach (ICD-10-PCS; principal; 2021-07-19 17:15)
DX: L02.212 Cutaneous abscess of back [any part, except buttock and flank] (principal); N17.9 Acute kidney failure, unspecified; Z68.41 Body mass index [BMI] 40.0-44.9, adult; I12.9 Hypertensive chronic kidney disease with stage 1 through stage 4 chronic kidney disease, or unspecified chronic kidney disease; N18.30 Chronic kidney disease, stage 3 unspecified; E66.01 Morbid (severe) obesity due to excess calories; E11.65 Type 2 diabetes mellitus with hyperglycemia; E11.22 Type 2 diabetes mellitus with diabetic chronic kidney disease; N40.0 Benign prostatic hyperplasia without lower urinary tract symptoms; I25.10 Atherosclerotic heart disease of native coronary artery without angina pectoris; J32.9 Chronic sinusitis, unspecified; R07.81 Pleurodynia; Z79.4 Long term (current) use of insulin; Z95.0 Presence of cardiac pacemaker; Z20.822 Contact with and (suspected) exposure to COVID-19; Z87.891 Personal history of nicotine dependence
CPT/HCPCS: 10060; 36415; 72129; 80048; 80053; 82962; 83605; 84145; 85007; 85025; 87040; 87070; 87075; 87176; 87205; 87635; 93005; 94760; 96365; 96375; 99221; 99284; C9803; J0171; J0610; J1170; J1644; J1815; J2250; J2270; J2543; J2704; J3010; Q9967

== ENCOUNTER 2021-08-18 16:26 | Emergency (ER) | payer MEDICARE, OTHER, SELFPAY ==
[2021-07-19 03:54] VITALS: BMI 42.7
[2021-08-18 16:49] VITALS: BP 143/75; PULSE 80; RESP 18; TEMP 36.6; O2SAT 96; BMI 43.0
--- NOTE | 2021-08-18 18:32 | ED.SKABFB ---
HPI - Skin/Abscess/Foreign Bdy <Poonam Webb, [facility] - Last Filed: 08/18/21 18:52> General Chief complaint: Skin/Abscess/Foreign Body Stated complaint: wound on middle of back, not healing Time Seen by Provider: 08/18/21 18:01 Source: patient Mode of arrival: Ambulatory Limitations: no limitations History of Present Illness HPI narrative: This is a 71-year-old male who has a history of morbid obesity, insulin-dependent diabetes, bradycardia with a pacemaker, vascular insufficiency in lower extremities, hyperlipidemia, CKD, diabetic neuropathy who presents to the emergency department one month status post a lymph node removal in the middle of his upper back. Patient has had wound cultures from this wound that grew out propionibacterium granulosum on 07/19/2021. Patient presents to the emergency department from Dr. Moses is office where he was told that his wound appears infected and that he should go to the emergency department for possible surgical debridement. Patient was in [place] this morning, states he was there on vacation for a while, went to his PCP appointment this morning and was told to go directly to the emergency department for concern about infection. Patient states that he took antibiotics after this lymph node removal, and has not had any changes to this wound. Patient has a white-colored wound base with a large golf ball size hole, surrounded by some purplish colored discoloration, no erythema, foul odor, some watery discharge, patient states it is never stops draining and the discharge has not changed. Patient denies any symptoms of illness, fever, weakness, lightheadedness, hyperglycemia, fatigue, muscle aches or any other symptom. Patient has been having wound care at his house, patient states that the woman has been doing wet-to-dry dressing changes. Related Data Home Medications Medication Instructions Recorded Confirmed [id number]-[id number] acid-vit 1 tab PO DAILY 01/21/18 08/18/21 K-lycop 400 mcg-20 mcg-370 mcg tablet (One-A-Day Men's 50 Plus) aspirin 81 mg tablet,delayed 81 mg PO DAILY 02/15/19 08/18/21 release insulin aspart U-100 100 unit/mL 1 sliding scale dose SUBCUT TID ml 05/02/21 08/18/21 (3 mL) subcutaneous pen Previous Rx's Medication Instructions Recorded lisinopril 40 mg tablet 40 mg PO DAILY #90 tab 02/09/21 insulin aspart U-100 100 unit/mL See Rx Instructions SUBCUT QAC #15 04/29/21 (3 mL) subcutaneous pen ml MDD 36 insulin glargine 100 unit/mL (3 25 unit (0.25 mL) SUB-Q .QHS #15 ml 04/29/21 mL) subcutaneous pen pen needle, diabetic 31 gauge x #400 ea 04/29/21/ (Comfort EZ Pen [place]) metoprolol succinate 50 mg 50 mg PO DAILY #90 tab 05/23/21 tablet,extended release 24 hr Bradford Freestyle lite test strips #250 ea 05/30/21 simvastatin 20 mg tablet 20 mg PO QPM #90 tab 05/30/21 tamsulosin 0.4 mg capsule 0.4 mg PO DAILY #90 cap 05/30/21 amlodipine 10 mg tablet 10 mg PO DAILY #90 tab 08/19/21 loratadine 10 mg tablet 10 mg PO DAILY #90 tab 08/19/21 Allergies Allergy/AdvReac Type Severity Reaction Status Date / Time iodine Allergy Unknown Verified 08/18/21 15:14 shellfish derived Allergy Verified 08/18/21 15:14 Review of Systems <TWAN Pritchard - Last Filed: 08/18/21 18:52> Review of Systems Narrative: General: denies fever, chills Head/Neck: denies headache, neck pain Eyes: denies visual changes, eye pain Cardio: denies chest pain, palpitations Respiratory: denies shortness of breath, cough GI: denies abdominal pain, nausea, vomiting, or diarrhea : denies dysuria, hematuria or flank pain MSK: denies new joint pain, muscle weakness or swelling Skin: denies rash, large wound on back, has not changed according to patient in terms of size, or pain. 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 Pacemaker (10/26/17) Recurrent sinusitis (~1969) Rheumatoid arthritis (~2014) Shoulder pain (~2017) Sleep apnea (~1999) Surgical History Anesthesia History of carpal tunnel release (~2002) History of knee replacement History of permanent cardiac pacemaker placement (10/26/17) Family History Father History of heart disease Mother Diabetes mellitus History of heart disease Hypertension Hyperlipidemia Mental health problem Brother History of heart disease Sister Diabetes mellitus Social History household members: none Smoking Status: Former smoker second hand exposure: Yes (Sometimes, casnio) alcohol intake: current substance use type: does not use Smoking Status: Former smoker alcohol intake frequency: a few times a month Substance Use Type: does not use Exam <TWAN Pritchard - Last Filed: 08/18/21 18:52> Narrative Exam Narrative: Independently reviewed vitals signs and nursing notes. General: Awake, alert, nontoxic, no cardiorespiratory distress Head/Neck: Atraumatic, neck supple Eyes: EOMI, conjunctiva normal Nose: nares patent, no rhinorrhea Mouth/Throat: moist mucus membranes, posterior pharynx without erythema or lesion Cardio: Regular rate and rhythm, no peripheral edema Respiratory: respirations unlabored without wheezing, stridor, or rales. No retractions, hypoxia or tachypnea GI: Abdomen soft, nontender to palpation x4 quadrants, no guarding or rebound tenderness MSK: Moves all extremities, neurovascularly intact, range of motion without deficit Skin: Normal capillary refill, no rash, large wound on patient's upper back, approximately size of a golf ball, white granulation tissue his covering the wound, no surrounding erythema or purulence drainage, there is discoloration which is purplish in color similar to the venous stasis discoloration on his lower legs. Patient denies any significant tenderness, blanches briskly and if there is any tenderness it is on a right medial aspect. No fluctuance, appears to be healing as predicted. No evidence of cellulitis or infection at this time, wound culture obtained Neuro: Normal speech and cognition, normal gait Initial Vital Signs Initial Vital Signs: Vital Signs Temperature 97.8 F 08/18/21 16:49 Pulse Rate 80 08/18/21 16:49 Respiratory Rate 18 08/18/21 16:49 Blood Pressure 143/75 H 08/18/21 16:49 Pulse Oximetry 96 08/18/21 16:49 <Celeste Vasquez DO - Last Filed: 08/20/21 19:00> Initial Vital Signs Initial Vital Signs: Vital Signs Temperature 97.8 F 08/18/21 16:49 Pulse Rate 80 08/18/21 16:49 Respiratory Rate 18 08/18/21 16:49 Blood Pressure 143/75 H 08/18/21 16:49 Pulse Oximetry 96 08/18/21 16:49 Course <TWAN Pritchard - Last Filed: 08/18/21 18:52> Orders Ordered: ED Orders 08/18/21 18:26 Consult to General Surgery Stat Consult to Wound Care Stat Vital Signs Vital signs: Vital Signs - 8 hr 08/18/21 16:49 Temperature 97.8 F Pulse Rate 80 Respiratory Rate 18 Blood Pressure 143/75 H Pulse Oximetry 96 <DO Rolan Dexter Last Filed: 08/20/21 19:00> Orders Ordered: ED Orders 08/18/21 18:26 Consult to General Surgery Stat Consult to Wound Care Stat Vital Signs Vital signs: Vital Signs - 8 hr 08/18/21 16:49 Temperature 97.8 F Pulse Rate 80 Respiratory Rate 18 Blood Pressure 143/75 H Pulse Oximetry 96 MDM - Skin/Abscess/Foreign Bdy <TWAN Pritchard - Last Filed: 08/18/21 18:52> MDM Narrative Medical decision making narrative: This is a 71-year-old male with history of insulin dependent diabetes, move it did PCD, hyperlipidemia, hypertension, venous insufficiency bilateral lower extremities, and CKD who presents to the emergency department one month status post a lymph node removal in the thoracic region of his back after he went to his PCP today who is concerned about infection and told him to go to the emergency department for evaluation. Patient was not started on any antibiotics from primary care, on exam in the emergency department, it does not appear to be infected at this time, patient does not have any systemic signs of illness, he states it is not been getting any worse it is getting better and it is slightly smaller than it used to be. He states it has drainage every day, he has been having wound care for wet to dry dressings. He denies any tenderness around this wound, there is no fluctuance, there is no purulence drainage, wound culture obtained and is pending. Consultation with Dr. Rivera who is not at the hospital currently, Dr. Rivera agrees to see the patient as an outpatient for evaluation of this wound for possible surgical debridement. Patient was not started on antibiotics at this time, he has not had any fever or recent illness. He has returned from [place] today, states that there has been no changes to his symptoms whatsoever. I please referral for wound care, put in a consultation for Dr. Rivera, encourage patient to follow-up with him for possible surgical debridement and evaluation by the surgeon. To await our phone call if his wound culture grows out bacteria needing antibiotics. Encouraged patient to have low threshold to return to the emergency department if he has any worsening, stay hydrated, use Tylenol as needed for pain. Patient denies any pain today. Patient is appropriate and amenable to discharge home. Vital signs are stable on repeat examination is unremarkable. Patient has been informed of results. Patient has been given strict return to ER precautions for any new or worsening symptoms. Patient understands to follow up closely with outpatient providers as instructed. Patient understands plan and agrees to discharge home. All questions and concerns answered at this time. Discharge Plan Departure Patient Disposition: Home Clinical Impression: Wound drainage Instructions: How to Change a Wet to Dry Wound Dressing Activity Restrictions/Additional Instructions: *You have been diagnosed with a slow healing wound on your back from the lymph node removal. We have sent a culture of this wound, we will call you if it grows something that needs to be treated with antibiotics. I have consulted the general surgeon agreed to evaluate your wound for possible surgical debridement if this is necessary. Please call and make an appointment with Dr. Rivera at [facility] office. I have also placed a wound care referral for you, hopefully they call you and will take over your wet to dry dressing changes. Please have your wound care person continue doing wet to dry dressings, follow-up with Dr. Rivera and wound care. Please try and keep your blood sugar under control and in the 100-200 range. If you develop a fever, any symptoms of illness concerning for infection of this wound, please come back to the emergency department and we will which on antibiotics. At this point, you do not have any systemic symptoms of illness, your wound does not have any odor, no surrounding redness or purulence discharge, we would like to wait and see what the culture grows before starting antibiotics. Have this evaluated please by Dr. Rivera, return to the ER for any new or worsening symptoms. Go enjoy a delicious burger for dinner, I hope you are happy to be home. *What to do: *Please continue to take your regular medications as directed. [ ] New medication prescriptions sent to your pharmacy: [ ] [ ] New medication written as a paper prescription [x ] No new medications given *Please follow up with your primary care provider in 2-3 days, call for an appointment. Let them know you were seen in the Emergency Department and that we asked that you be seen for follow-up. We will electronically transmit a record of today's note if your PCP is in our system *If you do not have a primary care provider please contact [phone] to establish care with one of the [facility] primary care providers. *Return to Emergency Department if you should have any new, worsening or concerning symptoms, such as [fever greater than 101F, chills, worsening pain, persistent vomiting or other bothersome symptoms] Prescriptions: No Action lisinopril 40 mg tablet 40 mg PO DAILY Qty: 90 1RF metoprolol succinate 50 mg tablet extended release 24 hr 50 mg PO DAILY Qty: 90 3RF tamsulosin 0.4 mg capsule 0.4 mg PO DAILY Qty: 90 3RF simvastatin 20 mg tablet 20 mg PO QPM Qty: 90 3RF (DME) Bradford Freestyle lite test strips 0 .Route .MEDSUPPLY Qty: 250 3RF Dose Instruction: As directed Rx Instructions: Test blood sugar levels twice daily loratadine 10 mg tablet 10 mg PO DAILY Qty: 90 2RF amlodipine 10 mg tablet 10 mg PO DAILY Qty: 90 2RF aspirin 81 mg tablet,delayed release (DR/EC) 81 mg PO DAILY 0RF insulin glargine 100 unit/mL (3 mL) insulin pen 25 unit Sub-Q .QHS Qty: 15 5RF insulin aspart U-100 100 unit/mL (3 mL) insulin pen See Rx Instructions SUBCUT QAC MDD 36 Qty: 15 3RF Rx Instructions: 7 units plus sliding scale dose SUBCUT before meals; (DME) pen needle, diabetic [Comfort EZ Pen [place]] 31 gauge x 3/16 needle See Rx Instructions .ROUTE .MEDSUPPLY Qty: 400 3RF Rx Instructions: Use to test blood sugars 4 times a day insulin aspart U-100 100 unit/mL (3 mL) insulin pen 1 sliding scale dose SUBCUT TID 0RF Label Comments: Blood Glucose (mg/dL)Sliding Scale dose ? in addition to pre-meal dose Less than 70 Initiate HYPOglycemia Guidelines 70 ? 149 0 units 150 - 199 2 units 200 ? 249 4 units 250 ? 299 6 units 300 ? 349 8 units 350 - 399 10 units Over 400 12 units ? notify provider, and recheck blood sugar in 30 minutes. One-A-Day Men's 50 Plus 400-20-370 mcg Tablet 1 tab PO DAILY 0RF Referrals: Curtis Dave MD [Primary Care Provider] - Bill Rivera MD [Physician] - 3-5 days <Celeste Vasquez DO - Last Filed: 08/20/21 19:00> Cosign ED Attending Cosignature Attestation: I was immediately available in the department for consultation. Documentation has been reviewed.
== END 2021-08-18 19:09 | disposition home or self-care (01) ==
PROVIDERS: Emergency Provider Nurse Practitioner Critical Care Medicine; PCP Student in an Organized Health Care Education/Training Program
DX: L24.A9 Irritant contact dermatitis due friction or contact with other specified body fluids (principal)
CPT/HCPCS: 99283

== ENCOUNTER → 2021-08-29 06:29 | Outpatient (CLI) | payer MEDICARE, OTHER, SELFPAY ==
[2021-07-19 03:54] VITALS: BMI 42.7
[2021-08-29 07:47] LABS: Hemoglobin A1C% w Est Avg Glu 11.5 % (4.0-6.0)
[2021-08-29 08:15] LABS: BUN Creatinine Ratio 14.2 (6-22); Blood Urea Nitrogen 15 mg/dL (9-20); Calcium 8.9 mg/dL (8.4-10.2); Carbon Dioxide 31 mmol/L (22-32); Chloride 98 mmol/L (98-107); Cholesterol 150 mg/dL (140-199); Estimated Glomerular Filt Rate > 60 mL/min (>60); Glucose 357 mg/dL (80-110); HDL Cholesterol 40 mg/dL (40-60); HEMOLYSIS < 15 (0-50); LDL Cholesterol Calculated 55 mg/dL (<100); Potassium 4.9 mmol/L (3.4-5.1); Sodium 134 mmol/L (137-145); Triglycerides 274 mg/dL (35-150)
[2021-08-29 08:46] LABS: Creatinine Urine Random 49.4 mg/dL
[2021-08-29 08:51] LABS: Microalbumi Creatinin Ratio Ur 356.2 ug/mg CR (<30); Microalbumin Urine Random 17.6 mg/dL (0-1.6)
== END ==
PROVIDERS: PCP Student in an Organized Health Care Education/Training Program; Referring Provider Student in an Organized Health Care Education/Training Program; Visit Provider Student in an Organized Health Care Education/Training Program
DX: E11.69 Type 2 diabetes mellitus with other specified complication (principal); E78.5 Hyperlipidemia, unspecified; I10 Essential (primary) hypertension; N18.31 Chronic kidney disease, stage 3a; Z79.4 Long term (current) use of insulin
CPT/HCPCS: 36415; 80048; 80061; 82043; 82570; 83036

== ENCOUNTER 2021-09-27 07:24 | Day surgery (SDC) | payer MEDICARE, OTHER, SELFPAY ==
[2021-07-19 03:54] VITALS: BMI 42.7
[2021-09-23 13:05] VITALS: BMI 44.9
--- NOTE | 2021-09-27 | PATH_ITS ---
[facility] Accession Number: [id number] . 01 Material submitted: . PART A: shoulder - RIGHT SHOULDER PART B: back - BACK WOUND CAVITY . 01 Clinical history: . A: SKIN LESION, SUTURE POSTERIOR . 01 Diagnosis: A. Right Shoulder, Excision: Basal cell carcinoma, nodular type, margins clear. . B. Back Wound Cavity, Excision: Ulceration with granulation tissue formation, inflammation, scarring, and extensive necrosis. . Note: A fragment of foreign body most consistent with arthropod body part is noted in the necrotic tissue. Diagnostic considerations include a fragment of Demodex and, less likely, scabies. PAS stain to rule out a fungal infection and additional levels are pending, and an addendum will follow. Clinicopathological correlation is advised for definitive diagnosis. [facility] 09/30/2021 1725 Local . 01 Electronically signed: . Ava Dorsey MD, Dermatopathologist NPI- [id number] . 01 Gross description: . A. Received in formalin in a specimen container labeled with the patient's name, medical record number, and right shoulder skin lesion, previously oriented with a suture on posterior resection margin, vertically oriented, yusuf-pink skin ellipse that measures 4.6 x 1.8 x 1.6 cm. On skin surface there is a centrally located, raised, slightly ulcerated lesion that measures 1.2 x 1.1 x 0.4 cm. The lesion is 0.2 mm away from the closest peripheral resection margin. No other distinct lesions are grossly identified. Designated posterior resection as 6 o'clock and the opposite ellipse as 12 o'clock resection margin. The resection margin is inked in blue from 12 to 3 to 6 o'clock, and inked in green from 6 to 9 to 12 o'clock. The specimen is serially sectioned and entirely sequentially submitted from 12 to 6 o'clock as follows: . A1: 12 o'clock resection margin. A2: 6 o'clock resection margin. A3-A7: Specimen body entirely sequentially submitted from 12 to 6 o'clock. ([id number]) . B. Received in formalin in a specimen container labeled with the patient's name, medical record number, and back wound cavity, is an oval shaped slightly rigid on touch, centrally ulcerated yusuf-pink skin fragment that measures 4.2 x 4.0 x 2.2 cm. The centrally located ulcer measures 2.2 x 2.1 x 0.9 cm in depth and is grossly covered by nonviable grayish content. The resection margin is entirely inked in blue. The specimen is serially sectioned to reveal solid pink and focally slightly yellowish, possible nonviable cut surfaces. . Also in the same container is a yusuf-pink soft tissue fragment that measures 2.5 x 2.5 x 1.3 cm. The fragment outer surface is entirely inked in green and fragment is serially sectioned. The cut surfaces are yusuf and solid, grossly unremarkable. . The front office representative sections are submitted in cassettes B1 and B2 as follows: . B1: Oval-shaped skin fragment with centrally located ulcer. B2: Additional soft tissue fragment, front office representative. ([id number]) /MRV 09/29/2021 1850 Local . 01 Pathologist provided ICD-10: C44.91, L98.9 . 01 CPT . 770571, 040257, [id number] Performed at: 01 [facility] [address] [place] [address], [place], [place] [id number] MD Josh Rosa MD Phone: [phone]
[2021-09-27 07:59] LABS: COVID19 -Nasal RAPID Negative (Negative)
[2021-09-27 09:22] VITALS: BP 166/71; PULSE 75; RESP 20; TEMP 36.6; O2SAT 95; BMI 45.6
[2021-09-27] MEDS: LACTATED RINGERS 1,000 ML 42 ML IV (09:39)
--- NOTE | 2021-09-27 10:22 | SUR.PREOP ---
0940 - Patient admitted to preop per protocol. Patient immediately argumentative and yelling in preop waiting room. Brought back to preop area where patient followed instructions, but continually was argumentative and would raise his voice to staff. Patient answered most questions, but refused to answer some clearly. Blood glucose noted to be 336. Attempted to educate patient that he may receive some insulin preop, but patient began yelling and refusing stating that insulin doesn't work. Physician notified of blood glucose. Patient talked to multiple times about behavior throughout admission. Management notified.
--- NOTE | 2021-09-27 11:19 | PM.PREOP ---
Pre-operative Note COVID-19 COVID-19 status: Negative Result date/Date tested (Pos, Neg/Pending): 09/23/21 Interval Note History & Physical reviewed/Exam performed by Physician: Yes Changes to H&P: No ASA Class (for procedural sedation): III
--- NOTE | 2021-09-27 12:14 | SUR.OPER ---
LEFT Lateral on a isbell bag, head on pillow, gel axillary roll in place, bottom leg bent with gel pad under knee to foot, upper leg straight and supported with pillows. Upper arm supported by pillows and secured over bottom arm to padded arm board. Safety belt at hip, tape over blanket lower legs. POSITION APPROVED BY ANESTHESIA AND SURGEON
[2021-09-27] MEDS: LIDOCAINE 1% W/EPI 20 ML INJ (12:26)
[2021-09-27 13:12] VITALS: BP 120/61; PULSE 60; RESP 20; TEMP 36.8; O2SAT 96
--- NOTE | 2021-09-27 13:13 | PM.OP.1 ---
Operative Date/Time/Diagnoses Date of procedure: 09/27/21 Time of procedure: 13:13 Pre-op diagnosis: Nonhealing back wound and right posterior deltoid skin lesion Post-op diagnosis: same Procedure & Clinicians Procedure: Debridement of nonhealing back wound and excisional biopsy of right posterior deltoid skin lesion Same procedure as scheduled: Yes Surgeon: Konrad Matamoros Operative Notes Procedure in detail: The patient was brought to the operating room and general anesthesia was induced. He was then positioned in the left lateral decubitus position with the right side up on a beanbag. The back wound and the right posterior deltoid skin lesion were prepped and draped in the usual fashion. A time-out was performed. We started with the right posterior deltoid skin lesion. The lesion is soft was circular lesion that was 1.2 cm in diameter. It had a eschar in the center and appeared like a basal cell carcinoma. An ellipse was taken parallel to the axis of the right upper extremity. The ellipse was 2 cm x 6 cm. Specimen was taken down to the subcutaneous adipose tissue. A silk stitch was placed at the posterior superior aspect of the ellipse. Flaps were raised in the subcutaneous adipose tissue to allow tension-free closure. The dermis was then approximated with multiple interrupted 3-0 Vicryl sutures. The skin was then closed with several 2-0 nylon mattress sutures. We then turned to the back wound. The wound had significant fibrinous exudate along its base and the skin edges were curling inwards. We therefore excised the skin edge down to the deep tissue. There was rather substantial bleeding from the tissue which was controlled with pressure and with cautery. There was a large arterial bleeder in base of the wound that was controlled with 3-0 silk stitch [id number]. We excised all the fibrinous exudate of tissue. At the conclusion of the debridement the entire wound bed was well perfused tissue. Some tissue was sent for pathology and some was sent to micro for culture. Once we had good hemostasis and all the fibrinous debris was removed a wound VAC was placed in the wound. EBL: 50 mL Specimen: Right posterior deltoid skin lesion and back wound cavity as well as back wound tissue to micro Post-operative Disposition: PACU
[2021-09-27 13:17] VITALS: BP 122/55; PULSE 60; RESP 18; O2SAT 95
[2021-09-27 13:22] VITALS: BP 127/54; PULSE 61; RESP 19; O2SAT 93
[2021-09-27 13:27] VITALS: BP 127/61; PULSE 61; RESP 16; TEMP 36.5; O2SAT 94
[2021-09-27 13:32] VITALS: BP 127/60; PULSE 60; RESP 16; TEMP 36.7; O2SAT 96
--- NOTE | 2021-09-27 13:39 | SUR.PHASEII ---
wound care nurse at bedside educating pt on wound vac. This RN has gone through all other discharge instructions with pt and he has verbalized understanding.
== END 2021-09-27 14:06 | disposition home or self-care (01) ==
PROVIDERS: PCP Student in an Organized Health Care Education/Training Program; Referring Provider Surgery; Visit Provider Surgery
PROC: (CPT 11606; principal; 2021-09-27 10:45)
DX: C44.91 Basal cell carcinoma of skin, unspecified (principal); L08.89 Other specified local infections of the skin and subcutaneous tissue; L92.3 Foreign body granuloma of the skin and subcutaneous tissue; E11.9 Type 2 diabetes mellitus without complications; I25.10 Atherosclerotic heart disease of native coronary artery without angina pectoris; I25.2 Old myocardial infarction; Z95.0 Presence of cardiac pacemaker; G47.33 Obstructive sleep apnea (adult) (pediatric); Z20.822 Contact with and (suspected) exposure to COVID-19
CPT/HCPCS: 11606; 12034; 11042; 87070; 87075; 87077; 87176; 87186; 87205; 87635; J2250

== ENCOUNTER → 2021-09-29 09:24 | Outpatient (CLI) | payer MEDICARE, OTHER, SELFPAY ==
[2021-07-19 03:54] VITALS: BMI 42.7
== END ==
PROVIDERS: PCP Student in an Organized Health Care Education/Training Program; Referring Provider Surgery; Visit Provider Family Medicine
DX: T81.89XA Other complications of procedures, not elsewhere classified, initial encounter (principal); S21.201A Unspecified open wound of right back wall of thorax without penetration into thoracic cavity, initial encounter; L08.9 Local infection of the skin and subcutaneous tissue, unspecified; E11.65 Type 2 diabetes mellitus with hyperglycemia; Z79.4 Long term (current) use of insulin
CPT/HCPCS: 11042; 11045; 97605; 99204; 99213

== ENCOUNTER → 2021-10-03 09:14 | Outpatient (CLI) | payer MEDICARE, OTHER, SELFPAY ==
[2021-07-19 03:54] VITALS: BMI 42.7
== END ==
PROVIDERS: PCP Student in an Organized Health Care Education/Training Program; Referring Provider Student in an Organized Health Care Education/Training Program; Visit Provider Family Medicine
DX: T81.89XA Other complications of procedures, not elsewhere classified, initial encounter (principal); S21.209A Unspecified open wound of unspecified back wall of thorax without penetration into thoracic cavity, initial encounter
CPT/HCPCS: 97605

== ENCOUNTER → 2021-10-06 09:32 | Outpatient (CLI) | payer MEDICARE, OTHER, SELFPAY ==
[2021-07-19 03:54] VITALS: BMI 42.7
== END ==
PROVIDERS: PCP Student in an Organized Health Care Education/Training Program; Referring Provider Surgery; Visit Provider Family Medicine
DX: T81.89XA Other complications of procedures, not elsewhere classified, initial encounter (principal); S21.209A Unspecified open wound of unspecified back wall of thorax without penetration into thoracic cavity, initial encounter; L08.89 Other specified local infections of the skin and subcutaneous tissue; B96.4 Proteus (mirabilis) (morganii) as the cause of diseases classified elsewhere; B95.2 Enterococcus as the cause of diseases classified elsewhere; E11.65 Type 2 diabetes mellitus with hyperglycemia; Z79.4 Long term (current) use of insulin
CPT/HCPCS: 11042; 11045; 87070; 87075; 87077; 87147; 87185; 87186; 87205; 97605; 99214